=== PATIENT | male | born 1950 | race Caucasian/White ===

== ENCOUNTER 2024-08-30 20:09 | Inpatient (IN) | payer OTHER, SELFPAY ==
[2024-08-30] VITALS (33 sets, daily range): BP systolic 98–148; BP diastolic 46–89; BMI 31.7
[2024-08-30 15:38] LABS: Glucose - Point of Care 160 mg/dl (70-99)
[2024-08-30 15:48] LABS: % Basophils 0.4 % (0-2); % Eosinophils 3.9 % (0-6); % Immature Granulocytes 0.8 % (0-0.5); % Lymphocytes 13.6 % (20.5-51.1); % Monocytes 9.3 % (1.7-9.3); Absolute Eosinophils 0.4 10^3/uL (0-0.7); Absolute Immature Granulocytes 0.1 10^3/uL (0-0.05); Absolute Lymphocytes 1.2 10^3/uL (1.2-3.4); Absolute Monocytes 0.8 10^3/uL (0.1-0.6); Absolute Neutrophils 6.5 10^3/uL (1.4-6.5); Hematocrit 21.3 % (39.0-52.0); Hemoglobin 7.3 g/dL (13.0-18.0); Mean Corp Hgb Conc. 34.3 g/dL (33.0-37.0); Mean Corpuscular Hgb 29.3 pg (27.0-31.0); Mean Corpuscular Volume 85.5 fL (80.0-94.0); Mean Platelet Volume 9.9 fL (7.4-10.4); Nucleated Red Blood Cells % 0 % (-); Platelet Count 194 10^3/uL (130-400); Red Blood Cell Count 2.49 10^6/uL (4.70-6.10); Red Cell Dist. Width 15.8 % (11.5-14.5)
[2024-08-30 15:58] LABS: INR 2.67; PT 28.3 Sec (11.4-14.6)
[2024-08-30 15:59] LABS: APTT 49.5 Sec (23.4-35.0)
[2024-08-30 16:11] LABS: ALT (SGPT) 20 U/L (0-50); AST (SGOT) 33 U/L (17-59); Albumin 2.7 g/dl (3.5-5.0); Alkaline Phosphatase 108 U/L (38-126); Blood Urea Nitrogen 41 mg/dl (9-20); Calcium 8.2 mg/dl (8.4-10.2); Carbon Dioxide 25 mmol/L (22-30); Chloride 97 mmol/L (98-107); Estimated Creatinine Clearance 52 ml/min; Glucose 146 mg/dl (70-99); Potassium 4.5 mmol/L (3.5-5.1); Sodium 133 mmol/L (135-145); Total Bilirubin 0.4 mg/dl (0.2-1.3); Total Protein 5.9 g/dl (6.3-8.2); eGFR 48.85
[2024-08-30] MEDS: NSS 1000 IV (16:13)
--- NOTE | 2024-08-30 16:30 | CON.GI ---
Addendum entered and electronically signed by Flor Major Do, MD 08/30/24 17:24:
I saw and examined the patient.
The FUSING LINE INSPECTOR's note was reviewed and I agree with the note.
Comment: Michel is a 74yo long-term resident with h/o compression back fracture s/p spinal fusion at [place], DM and afib on eliquis who was admitted for hypotension and anemia Hbg 7.3 with rectal bleeding. He is limited historian but on
opioids for back pain. Unclear if was having BMs prior. Vitals HR 66 BP 98/47 exam pale appearing, NTTP, hypoactive BS. Labs notable for Hbg 7.3 but no known baseline with iron deficiency. No prior EGD/colonoscopy
Impression
- Rectal bleeding with iron def anemia
ddx includes stercoral colitis, ulcer, diverticular or occult malignancy
- Compression back fracture
- Chronic opioid use
- DM
- Afib on eliquis
- HTN
- CHF
Recommendations
- NPO for now
- Await CTA results
- Hold eliquis, do not need to reverse anticoagulation in setting of green stools that is blood tinged upon bedside disimpaction today
- Miralax BID, may need more cleanse pending on results of CT
- Serial H/H
- 2 large bore IVs
- Protonix 40mg IV BID
Will follow with you
Original Note:
Consultation
-
Date/Time Consultation Requested: 08/30/241614
Date/Time Consultation Performed: 08/30/241614
Requesting Provider: Dr. Hayward
Performing Provider: Dr. Tejada/ROMERO Johnson
Reason for Consultation: GI Bleed
Medical History
Chief Complaint / HPI
Chief Complaint: rectal bleeding
History of Present Illness:
74-year-old male who is a resident of [facility] with past medical history of compression fracture status post recent lumbar surgery (fusion), this was performed at [facility] diabetes, atrial fibrillation currently on Eliquis,
hypertension, hyperlipidemia, hypothyroidism, CHF, osteomyelitis presents to the emergency room with rectal bleeding for [facility] it appears that the patient was admitted to [facility] on 08/24/2024. Asked to evaluate for the same. Patient
is a poor historian cannot give much history prior to this event. Although he states he feels like there is pressure in his rectum. The patient had his hemoglobin checked while at [facility] that showed a hemoglobin of 7.5 he also had
hypotension with BP of 80/38 and was sent to the emergency room for further care. We do not know what his prior hemoglobin was as he has not been in this facility. And no other records are available to us. Repeat hemoglobin performed here was
7.3. Blood pressure was 100/85, pulse 65, respirations 13, temperature 98.2, O2 sat 100% on room air. The patient denies any fevers, chills, nausea, vomiting, melena, prior hematochezia, dysphagia or dyne aphasia. He denies any early satiety or
unintentional weight loss. He does complain of back pain as well as pain with any kind of turning. He states that he has a pressure and a low back pain. He does have a dressing in place in his lumbar region over his recent fusion. There is
recent clot-like blood in his diaper region. Medications include cefdinir, Ativan, fentanyl patch, aspirin 81 mg daily, ferrous sulfate, amlodipine, tamsulosin, omeprazole, thiamine, levothyroxine, apixaban 5 mg 1 tablet twice daily, metoprolol and
rosuvastatin, insulin sliding scale, oxycodone 5 mg every 6 hours as needed, bisacodyl as needed, Fleet enema as needed Tylenol as needed. The patient did have a moderate size amount of blood per rectum for the emergency room. No further signs of
bleeding. Vital signs have remained stable for us here. I did perform a rectal exam on him and disimpacted a moderate handful of solid green stool. There was blood surrounding this but no blood within the bowel movement. WBC 9.0, hemoglobin 7.3,
hematocrit 21.3, platelet count 194, PT 28.3, INR 2.67, sodium 133, potassium 4.5, chloride 97, CO2 25, BUN 41, creatinine 1.5, glucose 146, albumin 2.7. No imaging yet. The patient denies any family history of gastrointestinal malignancy. He has
never had an endoscopy or colonoscopy.
Past Medical History
Past Medical History: CHF, HTN, Hypercholesterolemia, Hypothyroidism, NIDDM and Other (wedge compression fracture of 5th lumbar vertebra, osteomyelitis)
Past Surgical History: Orthopedic (lumbar spine fusion)
Social History
Tobacco: Non-Smoker
Alcohol: None
Drug: None
Personal:
Employment: Retired
Family History
Family History: Other (denies any family history of gastrointestinal malignancy or IBD)
Allergies / Home Medications
Allergy/AdvReac Type Severity Reaction Status Date / Time
No Known Allergies Allergy Unverified 08/30/24 15:24
�Medication �Instructions �Recorded
acetaminophen 325 mg tablet 650 mg PO Q4HPRN PRN mild 08/30/24
pain/temp >101
amlodipine 2.5 mg tablet 2.5 mg PO DAILY 08/30/24
ammonium lactate 12 % topical cream 1 applic topical DAILY B/L LE 08/30/24
apixaban 5 mg tablet 5 mg PO BID 08/30/24
aspirin 81 mg tablet,delayed 81 mg PO DAILY 08/30/24
release
bisacodyl 10 mg rectal suppository 10 mg MT DAILYPRN PRN no bm 24 hrs 08/30/24
aftr mom
calcium acetate 667 mg tablet 1,334 mg PO TID 08/30/24
cefdinir 300 mg capsule 300 mg PO BID 08/30/24
cholecalciferol (vitamin D3) 125 125 mcg PO DAILY 08/30/24
mcg (5,000 unit) tablet (Vitamin
D3)
fentanyl 50 mcg/hr transdermal 1 patch transdermal Q72H back pain 08/30/24
patch
ferrous sulfate 325 mg (65 mg 325 mg PO DAILY 08/30/24
iron) tablet
honey 80 % topical gel (MediHoney 1 applic topical DAILY sacral wound 08/30/24
(honey))
honey 80 % topical gel (MediHoney 1 applic topical DAILYPRN PRN 08/30/24
(honey)) sacral wound soilage
insulin aspart U-100 100 unit/mL 1 sliding scale dose SC AC 08/30/24
subcutaneous cartridge
levothyroxine 100 mcg tablet 100 mcg PO DAILY 08/30/24
lidocaine 5 % topical patch 1 patch topical DAILY lower back 08/30/24
lorazepam 0.5 mg tablet 0.5 mg PO BIDPRN PRN anxiety 08/30/24
magnesium hydroxide 400 mg/5 mL 30 ml PO [id number] PRN no bm 3 days 08/30/24
oral suspension
melatonin 3 mg tablet 3 mg PO HSPRN PRN sleep 08/30/24
metoprolol tartrate 25 mg tablet 25 mg PO BID 08/30/24
nystatin 100,000 unit/gram topical 1 applic topical BID 08/30/24
ointment sacrum/jasmin-area
omeprazole 20 mg capsule,delayed 20 mg PO DAILY 08/30/24
release
oxycodone 5 mg tablet 5 mg PO Q6HPRN PRN moderate pain 08/30/24
rosuvastatin 10 mg tablet 10 mg PO HS 08/30/24
sodium phosphates 19 gram-7 118 ml MT DAILYPRN PRN no bm 24 08/30/24
gram/118 mL enema (Fleet Enema) hrs aftr bisacodyl
tamsulosin 0.4 mg capsule 0.4 mg PO DAILY 08/30/24
thiamine HCl (vitamin B1) 100 mg 100 mg PO DAILY 08/30/24
tablet
Review of Systems
-
All other systems: A 12 pt ROS was Negative except as stated above in HPI
Vital Signs
Temp Pulse Resp BP Pulse Ox
98.2 F 65 13 100/85 100
08/30/24 15:24 08/30/24 15:30 08/30/24 15:30 08/30/24 15:28 08/30/24 15:46
Physical Exam
Exam
General: No Apparent Distress
HEENT: Anicteric
Respiratory: Clear
Cardiac: Regular Rhythm
GI: Soft, Non Tender, Non Distended and Normal Bowel Sounds
Rectal: Hem Positive ( small amount of maroon clot-like blood found in diaper, rectal exam with moderate amount of solid green iron like stool in rectum disimpacted)
Musculoskeletal: Edema (+2 KAREN to mid shins)
Skin: Warm, Dry and Other (Multiple areas of scabbing over arms varying degrees of healing)
Neuro: AO x 3
Psych: Calm
Results
WBC 9.0 10^3/uL (4.8-10.8) 08/30/24 15:35
Hgb 7.3 g/dL (13.0-18.0) L 08/30/24 15:35
Hct 21.3 % (39.0-52.0) L 08/30/24 15:35
MCV 85.5 fL (80.0-94.0) 08/30/24 15:35
Plt Count 194 10^3/uL (130-400) 08/30/24 15:35
Absolute Neuts (auto) 6.5 10^3/uL (1.4-6.5) 08/30/24 15:35
PT 28.3 Sec (11.4-14.6) H 08/30/24 15:35
INR 2.67 08/30/24 15:35
APTT 49.5 Sec (23.4-35.0) H 08/30/24 15:35
Sodium 133 mmol/L (135-145) L 08/30/24 15:35
Potassium 4.5 mmol/L (3.5-5.1) 08/30/24 15:35
Chloride 97 mmol/L (98-107) L 08/30/24 15:35
Carbon Dioxide 25 mmol/L (22-30) 08/30/24 15:35
BUN 41 mg/dl (9-20) H 08/30/24 15:35
Creatinine 1.5 mg/dL (0.7-1.3) H 08/30/24 15:35
Calcium 8.2 mg/dl (8.4-10.2) L 08/30/24 15:35
Total Bilirubin 0.4 mg/dl (0.2-1.3) 08/30/24 15:35
AST 33 U/L (17-59) 08/30/24 15:35
ALT 20 U/L (0-50) 08/30/24 15:35
Alkaline Phosphatase 108 U/L (38-126) 08/30/24 15:35
Diagnostic Image Results:
none
Prior GI Procedures:
EGD: never
Colonoscopy: never
Assessment / Plan
-
74-year-old male who is a resident of [facility] with past medical history of compression fracture status post recent lumbar surgery (fusion), this was performed at [facility] diabetes, atrial fibrillation currently on Eliquis,
hypertension, hyperlipidemia, hypothyroidism, CHF, osteomyelitis presents to the emergency room with rectal bleeding for [facility] it appears that the patient was admitted to [facility] on 08/24/2024. Asked to evaluate for the same. Patient
is a poor historian cannot give much history prior to this event. Although he states he feels like there is pressure in his rectum. The patient had his hemoglobin checked while at [facility] that showed a hemoglobin of 7.5 he also had
hypotension with BP of 80/38 and was sent to the emergency room for further care. We do not know what his prior hemoglobin was as he has not been in this facility. And no other records are available to us. Repeat hemoglobin performed here was
7.3. Blood pressure was 100/85, pulse 65, respirations 13, temperature 98.2, O2 sat 100% on room air.
Impression:
Rectal bleeding
Anemia-unaware of baseline as patient already presents on oral iron
Afib on Eliquis
Hypotension
Recent lumbar surgery
Narcotic use
Constipation likely with solid stool in rectum requiring disimpaction
Plan:
-Trend Hgb
-Transfuse as needed
-Await pending CT ordered
-continue PPI
-Await iron panel, B12, folate
-NPO except meds for now
-Hold Eliquis, no need to reverse
-Miralax BID
-
-
Thank you for consultation and allowing me to participate in the patient's care. Please call the account relationship manager GI physician during the after hours with any questions or concerns.
[2024-08-30 16:52] LABS: Iron 31 ug/dl (49-181)
[2024-08-30 17:01] LABS: Percent Saturation 18 % (20-50); Total Iron Binding Capacity 166 ug/dl (261-462)
[2024-08-30 17:12] LABS: Fibrinogen 420 MG/DL (199-459)
[2024-08-30] MEDS: KCENTRA 100 UNIT IV (17:33)
[2024-08-30] MEDS: ZOSYN 50 IV (18:51)
--- NOTE | 2024-08-30 18:56 | ED.GENMED ---
History of Present Illness
General
Chief Complaint: Rectal Bleeding
Source: patient
Exam Limitations: none
Time Seen by Provider: 08/30/24 15:37
Nursing documentation reviewed up to this point in time: agreed with
History of Present Illness
History of Present Illness:
74-year-old male past medical history of A-fib currently on Eliquis hypertension hyperlipidemia diabetes presenting to the emergency department today with concerns of rectal bleeding from his nursing facility. Hemoglobin is 7.9 at the nursing
facility and also hypotensive 80/38 while in the nursing facility. He was sent in for emergent treatment. On arrival here he complains of rectal pain and bleeding denies any chest pain or shortness of breath.
Review of Systems
Review of Systems
Allergies reviewed?: Yes
All Other Systems: ROS reviewed and negative except as documented in HPI and ROS
Phy Exam
Physical Exam
Physical Exam:
GENERAL: Alert , in no apparent distress
EYE: pupils equal and reactive
NECK: Supple, no significant adenopathy.
ENT: o/p clr, mmm.
CARDIAC: Regular rate and rhythm .
LUNGS: Clear breath sounds bilaterally, no acute respiratory distress, no wheezes/rales/rhonchi
ABDOMEN: Rectal examination with thick red blood slowly oozing from the rectum. Soft, without focal tenderness, no r/g, no cvat
NEUROLOGICAL: Alert and oriented, no focal neuro deficits
SKIN: Warm and dry, skin intact.
MUSCULOSKELETAL: No edema, well perfused.
PSYCH: Normal and appropriate interaction.
Course
Orders/Labs/Results
Orders:
Orders
08/30/24 15:35
Type+Screen Urgent
Complete Blood Count/With Diff Urgent
Comprehensive Metabolic Panel Urgent
Ferritin Urgent
Fibrinogen Urgent
Comment: ADD ON
Folate Urgent
Comment: TIBC,FERRITIN,IRON,B12,FOLATE ADDED ON BY FLOOR 4:40PM 08-30-24
Iron Urgent
PT/INR [Prothrombin Time] Urgent
PTT Urgent
Total Iron Binding Urgent
Vitamin B12 Urgent
08/30/24 15:38
Electrocardiogram (*1) Urgent
Reason for Study: Atrial Fibrillation
EKG- Treatment ONCE
08/30/24 16:07
* Blood Bank Products Urgent
Blood Bank Products: *Packed RBC Leuko(PRBC's)
Quantity: 2
Transfuse Today: Yes
Reason: Bleeding
08/30/24 16:11
ABO2 Urgent
BBK Wristband Number:
Associate notified that ABO2 has been ordered: [id number]
Date: 08/30/24
Time: 15:45
Document Imaging Manager ID: [id number]
0.9% Sodium Chloride 1000 ml [Nss] 1,000 ml IV BOLUS
08/30/24 16:19
CT Abd/pelvis Angio W/wo Iv Stat
Comment:
Reason For Exam: gi bleed study
08/30/24 16:37
Add On- LAB Routine
Tests Added?: tibc ferritin % iron saturation iron vit B12, folate
08/30/24 16:41
Add On- LAB Routine
Tests Added?: fibrinogen
08/30/24 16:46
Prothrombin Complex(Pcc),Human [Kcentra] 2,558 unit Empty Viaflex Container 100 ml [Viaflex Empty Container] 100 ml IV NOW
Does patient have a dx of serious acute active bleeding?: Yes
Does patient have prior history of HIT?: No
08/30/24 18:16
Piperacillin/Tazo 3.375 Gram [Zosyn] 3.375 gram in 50 ml IV NOW
08/30/24 20:00
Pantoprazole [Protonix IV] 40 mg IV BID
Abnormal Lab Results
08/30/24 08/30/24
15:35 15:36
RBC 2.49 L 10^6/uL
(4.70-6.10)
Hgb 7.3 L g/dL
(13.0-18.0)
Hct 21.3 L %
(39.0-52.0)
RDW 15.8 H %
(11.5-14.5)
Abs Immat Gran (auto) 0.1 H 10^3/uL
(0-0.05)
Absolute Monos (auto) 0.8 H 10^3/uL
(0.1-0.6)
Immature Gran % 0.8 H %
(0-0.5)
Lymphocytes % 13.6 L %
(20.5-51.1)
PT 28.3 H Sec
(11.4-14.6)
APTT 49.5 H Sec
(23.4-35.0)
Sodium 133 L mmol/L
(135-145)
Chloride 97 L mmol/L
(98-107)
BUN 41 H mg/dl
(9-20)
Creatinine 1.5 H mg/dL
(0.7-1.3)
Glucose 146 H mg/dl
(70-99)
Calcium 8.2 L mg/dl
(8.4-10.2)
Iron 31 L ug/dl
(49-181)
TIBC 166 L ug/dl
(261-462)
% Saturation 18 L %
(20-50)
Total Protein 5.9 L g/dl
(6.3-8.2)
Albumin 2.7 L g/dl
(3.5-5.0)
POC Glucose 160 H mg/dl
(70-99)
Crossmatch IS Only See Detail
08/30/24 15:35
08/30/24 15:35
Vital Signs
Initial and Last Documented VS:
Initial Vital Signs
Temp Pulse Resp BP Pulse Ox
98.2 F 65 15 100/85 98
08/30/24 15:24 08/30/24 15:24 08/30/24 15:24 08/30/24 15:24 08/30/24 15:24
Last Documented Vital Signs
Temp Pulse Resp BP Pulse Ox
97.7 F 76 15 108/89 95
08/30/24 18:36 08/30/24 18:36 08/30/24 18:36 08/30/24 18:36 08/30/24 18:36
MDM/Problems Addressed
MDM/Problems Addressed:
74-year-old male presenting to the emergency department with GI bleed. Thick red blood on rectal examination. Some pain to the rectal area. No abdominal pain. Blood pressure here initially in the low 100s not tachycardic. Hemoglobin 7.3
slightly lower than previous level as an outpatient elevated BUN and creatinine level. Otherwise patient was written for 2 units of blood also given Kcentra due to being on Eliquis GI was consulted immediately who came to see the patient. GI bleed
study was performed that did not show any emergent bleeding. At this point patient will be admitted for further assessment. Stable throughout her stay with improving blood pressure while in the ER.
*Critical Care Note
Total Time (30-74mins, 75-104mins- exclusive of procedures): Not Applicable
ED Attending Note
-
Portions of this chart may have been created with voice recognition software.� Occasional wrong word or��sound alike� substitutions may have occurred due to the inherent limitations of voice recognition software.
Discharge Plan
Departure
Patient Disposition: Admit
Date of Disposition: 08/30/24
Time of Disposition: 19:02
Admit to: IMU
Admit to doctor: Gagan
Presentation/result/management discussed w/ accepting MD/DO: Hospitalist
Patient with high blood pressure during this ER visit?: No
Condition: Fair
Covid-19: Not Applicable
Discharge Problem:
GI bleed
Prescriptions:
No Action
fentanyl 50 mcg/hr Patch 72 Hour
1 patch TRANSDERMAL Q72H
acetaminophen 325 mg Tablet
650 mg PO Q4HPRN MDD 3000 mg PRN (Reason: mild pain/temp >101)
nystatin 100,000 unit/gram Ointment
1 applic TOPICAL BID
thiamine HCl (vitamin B1) 100 mg Tablet
100 mg PO DAILY
amlodipine 2.5 mg Tablet
2.5 mg PO DAILY
melatonin 3 mg Tablet
3 mg PO HSPRN PRN (Reason: sleep)
Patient Comments:
08/30/24: to stop taking after 09/12/24.
aspirin 81 mg Tablet,Delayed Release (Dr/Ec)
81 mg PO DAILY
levothyroxine 100 mcg Tablet
100 mcg PO DAILY
lorazepam 0.5 mg Tablet
0.5 mg PO BIDPRN PRN (Reason: anxiety)
magnesium hydroxide 400 mg/5 mL Suspension
30 ml PO [id number] PRN (Reason: no bm 3 days)
tamsulosin 0.4 mg Capsule
0.4 mg PO DAILY
bisacodyl 10 mg Suppository
10 mg [place] DAILYPRN PRN (Reason: no bm 24 hrs aftr mom)
ferrous sulfate 325 mg (65 mg iron) Tablet
325 mg PO DAILY
lidocaine 5 % Adhesive Patch,Medicated
1 patch TOPICAL DAILY
Fleet Enema 19-7 gram/118 mL Enema
118 ml [place] DAILYPRN PRN (Reason: no bm 24 hrs aftr bisacodyl)
omeprazole 20 mg Capsule,Delayed Release(Dr/Ec)
20 mg PO DAILY
ammonium lactate 12 % Cream
1 applic TOPICAL DAILY
cefdinir 300 mg Capsule
300 mg PO BID
Patient Comments:
08/30/24: to take for 10 days, starting 08/26/24
oxycodone 5 mg Tablet
5 mg PO Q6HPRN PRN (Reason: moderate pain)
insulin aspart U-100 100 unit/mL Cartridge
1 sliding scale dose SC AC
Rx Instructions:
141-180=2u,181-220=4u,221-260=6u,261-300=8u,301-340=10u,341+=12u
rosuvastatin 10 mg Tablet
10 mg PO HS
metoprolol tartrate 25 mg Tablet
25 mg PO BID
cholecalciferol (vitamin D3) [Vitamin D3] 125 mcg (5,000 unit) Tablet
125 mcg PO DAILY
MediHoney (honey) 80 % Gel
1 applic TOPICAL DAILY
MediHoney (honey) 80 % Gel
1 applic TOPICAL DAILYPRN PRN (Reason: sacral wound soilage)
apixaban 5 mg Tablet
5 mg PO BID
calcium acetate 667 mg Tablet
1,334 mg PO TID
Referrals:
Kelsey Mills DO [Family Provider] -
Interventions
Interventions:
*Risk Screen - Suicide Last Done: 08/30/24 16:10
*General Assessment Last Done: 08/30/24 15:24
*Neglect/Abuse Screening Last Done: 08/30/24 15:24
*ED COVID-19 Vaccine History Last Done: 08/30/24 15:39
NP-Xdlrbs-Yvxzofkjzq Assessment Last Done: 08/30/24 16:14
ED- Cardiac Assessment Last Done: 08/30/24 15:46
ED- Pulmonary Assessment Last Done: 08/30/24 15:46
Discharge Date and Time
Print Language: SOMALI
--- NOTE | 2024-08-30 19:38 | HPS.HSE ---
Family Physician
-
Family Physician: Kelsey Mills DO
Chief Complaint
-
Rectal bleeding
History of Present Illness
Is a 74-year-old male who has a past medical history of insulin-dependent diabetes, hypertension, atrial fibrillation on anticoagulation, chronic vertebral wounds and osteo, hypothyroidism and hyperlipidemia who presents to the emergency department
from [facility] with rectal bleeding and was found hypotensive.
Exam in the ED shows ongoing mild loose with thick blood. There are some pain in the rectal region but no pain to the abdomen. Initial blood pressures was 80 systolic. Heart rate was normal.
When I saw him he was afebrile after 1 L of normal saline blood pressure was 111/60 pulse was 78 and irregular.
Hemoglobin was 7.3 which is still down from 7.8 at the snf, MCV 85, platelet count was 184 INR 2.6. White count was 9000. Chemistries were notable for a BUN of 41 creatinine of 1.5 sodium 133 potassium 4.5. LFTs were within normal limits.
Medical History
Past Medical History
Past Medical History: Reports Other
Additional Past Medical History:
Insulin-dependent diabetes,
Hypothyroidism
Hypertension
Atrial fibrillation on anticoagulation
GERD
Chronic osteo
Past Surgical History: Reports Other
Additional Past Surgical History:
Lumbar fusion
Social History
Unable to obtain full social history at this time due to: Dementia
Drug: None
Personal: Single
Living: [facility]
Family History
Family History: Not pertinent
Allergies / Home Medications
Allergies reflects when Allergies were last updated in [employer].
Home Medications with original date entered in [employer]
Allergy/Medication List:
Allergies
Allergy/AdvReac Type Severity Reaction Status Date / Time
No Known Allergies Allergy Unverified 08/30/24 15:24
Home Medications
acetaminophen 325 mg tablet 650 mg PO Q4HPRN PRN mild pain/temp >101 08/30/24
amlodipine 2.5 mg tablet 2.5 mg PO DAILY 08/30/24
ammonium lactate 12 % topical cream 1 applic topical DAILY B/L LE 08/30/24
apixaban 5 mg tablet 5 mg PO BID 08/30/24
aspirin 81 mg tablet,delayed release 81 mg PO DAILY 08/30/24
bisacodyl 10 mg rectal suppository 10 mg AR DAILYPRN PRN no bm 24 hrs aftr mom 08/30/24
calcium acetate 667 mg tablet 1,334 mg PO TID 08/30/24
cefdinir 300 mg capsule 300 mg PO BID 08/30/24
cholecalciferol (vitamin D3) 125 mcg (5,000 unit) tablet (Vitamin D3) 125 mcg PO DAILY 08/30/24
fentanyl 50 mcg/hr transdermal patch 1 patch transdermal Q72H back pain 08/30/24
ferrous sulfate 325 mg (65 mg iron) tablet 325 mg PO DAILY 08/30/24
honey 80 % topical gel (MediHoney (honey)) 1 applic topical DAILY sacral wound 08/30/24
honey 80 % topical gel (TransactionTreeHoney (honey)) 1 applic topical DAILYPRN PRN sacral wound soilage 08/30/24
insulin aspart U-100 100 unit/mL subcutaneous cartridge 1 sliding scale dose SC AC 08/30/24
levothyroxine 100 mcg tablet 100 mcg PO DAILY 08/30/24
lidocaine 5 % topical patch 1 patch topical DAILY lower back 08/30/24
lorazepam 0.5 mg tablet 0.5 mg PO BIDPRN PRN anxiety 08/30/24
magnesium hydroxide 400 mg/5 mL oral suspension 30 ml PO [id number] PRN no bm 3 days 08/30/24
melatonin 3 mg tablet 3 mg PO HSPRN PRN sleep 08/30/24
metoprolol tartrate 25 mg tablet 25 mg PO BID 08/30/24
nystatin 100,000 unit/gram topical ointment 1 applic topical BID sacrum/jasmin-area 08/30/24
omeprazole 20 mg capsule,delayed release 20 mg PO DAILY 08/30/24
oxycodone 5 mg tablet 5 mg PO Q6HPRN PRN moderate pain 08/30/24
rosuvastatin 10 mg tablet 10 mg PO HS 08/30/24
sodium phosphates 19 gram-7 gram/118 mL enema (Fleet Enema) 118 ml AR DAILYPRN PRN no bm 24 hrs aftr bisacodyl 08/30/24
tamsulosin 0.4 mg capsule 0.4 mg PO DAILY 08/30/24
thiamine HCl (vitamin B1) 100 mg tablet 100 mg PO DAILY 08/30/24
Review of Systems
-
History Source: Patient
Constitutional: Reports No Symptoms
EENT: Reports No Symptoms
Respiratory: Reports No Symptoms
Cardiac: Reports No Symptoms
Abdomen/GI: Reports No Symptoms
: Reports No Symptoms
Musculoskeletal: Reports No Symptoms
Skin: Reports No Symptoms
Neurological: Reports No Symptoms
Endocrine: Reports No Symptoms
Hematologic/Lymphatic: Reports No Symptoms
Psych: Reports No Symptoms
Physical Exam
Vital Signs
Vital Signs
Temp Pulse Resp BP Pulse Ox
97.7 F 78 16 111/62 95
08/30/24 18:36 08/30/24 19:15 08/30/24 19:15 08/30/24 19:10 08/30/24 18:36
Physical Exam
General: No Apparent Distress
HEENT: NormoCephalic, Anicteric, Moist mucous membranes and Atraumatic
Respiratory: Clear
Cardiac: S1/S2 and Irregular Rhythm
Breast: Deferred by me
GI: Soft, Non Tender, Non Distended and Normal Bowel Sounds
Rectal: Red and Maroon Stools
Genito-urinary: Deferred by me
Musculoskeletal: No Clubbing, No Cyanosis and No Edema
Skin: Warm
Neuro: AO x 3
Hematologic/Lymphatic: No Lymphadenopathy
Psych: Calm
Laboratory Results
-
08/30/24 15:35
08/30/24 15:35
Laboratory Results
PT 28.3 Sec (11.4-14.6) H 08/30/24 15:35
INR 2.67 08/30/24 15:35
APTT 49.5 Sec (23.4-35.0) H 08/30/24 15:35
Total Bilirubin 0.4 mg/dl (0.2-1.3) 08/30/24 15:35
AST 33 U/L (17-59) 08/30/24 15:35
ALT 20 U/L (0-50) 08/30/24 15:35
Alkaline Phosphatase 108 U/L (38-126) 08/30/24 15:35
Data Reviewed
-
CT Scan: Report Reviewed by me
Lab Data: Labs Reviewed by me
Old Records: Reviewed
Impression/Plan
-
IMPRESSION:
Patient with atrial fibrillation on anticoagulation and on 81 mg of aspirin presents to the emergency department with acute lower GI bleed. CT GI bleeding scan shows diverticulitis. No active contrast extravasation at that time.
PLAN:
1. GI bleed -diverticular bleed with acute diverticulitis. HD unstable on arrival. Hgb 7.3. On apixaban and aspirin 81
- admit to imu
- 1 L NS bolus, Kcentra given in ED
- holding aspirin, apixaban
- trend h/h, transfuse for Hgb < 7.5
- npo, iv maintenance fluids
- ppi iv bid, miralax bid
- no active bleeding on CT scan, hold of IR consult for now
- for diverticulitis, continue zosyn
- GI consulted, and recs given
2. AFIB
- holding metoporolol for now
- holding apixaban
3. DM on insulin
- sliding scale insulin q 6
4. Continue tamsulosin, thiamine, wound care consult. ABX for osteo till Sep 05.
DVT PPX - SCDs
Full Code
[2024-08-30] MEDS: PROTONIX IV 40 MG IV (21:51)
[2024-08-30 21:52] LABS: Folate 7.9 ng/ml (2.76-20); Vitamin B12 626 pg/ml (239-931)
[2024-08-30] MEDS: NSS (PRESERVATIVE FREE) 10 ML IV (21:52)
[2024-08-30] MEDS: DURAGESIC 50 MCG/HR PATCH 1 PATCH TRANSDERM (22:06)
[2024-08-30] MEDS: MYCOSTATIN OINTMENT 1 APPLIC TOPICAL (22:10)
[2024-08-30] MEDS: ATIVAN 0.5 MG PO (22:53)
[2024-08-30 22:56] LABS: Glucose - Point of Care 143 mg/dl (70-99)
[2024-08-31] VITALS (23 sets, daily range): BP systolic 119–163; BP diastolic 56–80; BMI 31.4
[2024-08-31] MEDS: MIRALAX 17 GRAMS PO ×3 (00:24→20:31)
[2024-08-31] MEDS: ZOSYN 50 IV ×4 (00:24→17:57)
[2024-08-31] MEDS: LR 500 IV (00:25)
[2024-08-31] MEDS: CRESTOR 10 MG PO ×2 (00:26→23:23)
--- NOTE | 2024-08-31 00:49 | PTCARENOTE ---
Rec'd pt from ED RN with PRBC transfusing. Pt disoriented to place, c/o back pain with movement. Pt turned off of sacrum with pillows, sacral wound dressing changed by this RN. Pt able to take oral pill with small sip of water without complication.
Desat to 87% on RA while sleeping, 2L placed with improvement to 96%. Call ontiveros within reach. Bed alarm in place
[2024-08-31] MEDS: ATIVAN 0.5 MG PO (03:39)
--- NOTE | 2024-08-31 04:06 | DOWNTIME ---
There was a [employer] Downtime on 08/31/2024 from 0100 to 08/31/2024 at 0355. Downtime documentation of patient's care, including medication administrations, has been reconciled in the electronic record per guidelines. Refer to the
patient's paper chart under the miscellaneous tab to see printed paper medication records and downtime forms.
--- NOTE | 2024-08-31 04:08 | PTCARENOTE ---
Pt removed two IVs, frequently removing monitoring equipment and oxygen. b/l wrist restraints placed per SEED TRUCKER order. PRN ativan given per MAR for increased anxiety.
[2024-08-31 04:11] LABS: Blood Urea Nitrogen 36 mg/dl (9-20); Calcium 8.4 mg/dl (8.4-10.2); Carbon Dioxide 28 mmol/L (22-30); Chloride 100 mmol/L (98-107); Estimated Creatinine Clearance 55 ml/min; Glucose 107 mg/dl (70-99); Potassium 4.2 mmol/L (3.5-5.1); Sodium 137 mmol/L (135-145); eGFR 53.07
[2024-08-31 04:54] LABS: Glucose - Point of Care 117 mg/dl (70-99)
[2024-08-31 05:12] LABS: Hematocrit 25.8 % (39.0-52.0); Hemoglobin 8.8 g/dL (13.0-18.0)
[2024-08-31 05:28] LABS: APTT 40.2 Sec (23.4-35.0)
[2024-08-31 06:18] LABS: Glucose - Point of Care 110 mg/dl (70-99)
[2024-08-31] MEDS: NSS (PRESERVATIVE FREE) 10 ML IV ×2 (07:54→20:32)
[2024-08-31] MEDS: VITAMIN B1 100 MG PO (07:54)
[2024-08-31] MEDS: SYNTHROID 100 MCG PO (07:54)
[2024-08-31] MEDS: PROTONIX IV 40 MG IV ×2 (07:54→20:32)
[2024-08-31] MEDS: FLOMAX 0.4 MG PO (07:54)
[2024-08-31] MEDS: LAC HYDRIN, AM LACTIN LOTION 1 APPLIC TOPICAL (07:55)
[2024-08-31] MEDS: LIDOCAINE 4% PATCH 1 PATCH TOPICAL (07:55)
[2024-08-31] MEDS: MYCOSTATIN OINTMENT 1 APPLIC TOPICAL ×2 (07:55→20:32)
[2024-08-31 08:20] LABS: Glucose - Point of Care 127 mg/dl (70-99)
--- NOTE | 2024-08-31 08:43 | W.PN.GI.CBS2 ---
Today's Communication / Plan
-
IV iron
Ducolax oral and WV
NPO for now once having good BMs consider advancement to [facility]D
EGD/colon outpatient basis in 8 wks time
Assessment / Plan
-
74-year-old male who is a resident of [facility] with past medical history of compression fracture status post recent lumbar surgery (fusion), this was performed at [facility] diabetes, atrial fibrillation currently on Eliquis,
hypertension, hyperlipidemia, hypothyroidism, CHF, osteomyelitis presents to the emergency room with rectal bleeding for [facility] it appears that the patient was admitted to [facility] on 08/24/2024. Asked to evaluate for the same. Patient
is a poor historian cannot give much history prior to this event. Although he states he feels like there is pressure in his rectum. The patient had his hemoglobin checked while at [facility] that showed a hemoglobin of 7.5 he also had
hypotension with BP of 80/38 and was sent to the emergency room for further care. We do not know what his prior hemoglobin was as he has not been in this facility. And no other records are available to us. Repeat hemoglobin performed here was
7.3. CTA without active bleeding but sigmoid diverticulitis and large stool burden.
Impression:
Acute sigmoid diverticulitis
Severe constipation
Anemia-unaware of baseline as patient already presents on oral iron
Confusion
Afib on Eliquis
Hypotension
Recent lumbar surgery
Narcotic use
Constipation likely with solid stool in rectum requiring disimpaction
Plan:
-Trend Hgb
-IV iron
-C/w abx to complete 7 day course
-NPO for now ok for meds
-Bisacodyl oral and WV today
-C/w Miralax BID
-Continue to hold eliquis if no further bleeding consider resuming tomorrow
-Recommend colonoscopy outpatient basis in 8 wks and EGD for iron def anemia
Will follow with you
Subjective
Subjective
Date of Service: August 31, 2024
Overnight very agitated and now in wrist restraints. Abd pain improved. Denies nausea/vomiting. Needs to urinate this AM
Objective
Data Reviewed
Laboratory Data:
Laboratory Results
08/31/24 03:20
Laboratory Results
PT 28.3 Sec (11.4-14.6) H 08/30/24 15:35
INR 2.67 08/30/24 15:35
APTT 40.2 Sec (23.4-35.0) H 08/31/24 03:20
Total Bilirubin 0.4 mg/dl (0.2-1.3) 08/30/24 15:35
AST 33 U/L (17-59) 08/30/24 15:35
ALT 20 U/L (0-50) 08/30/24 15:35
Alkaline Phosphatase 108 U/L (38-126) 08/30/24 15:35
Vital Signs and I&O:
Vital Signs
Temp Pulse Resp BP Pulse Ox
96.7 F L 71 13 126/62 97
08/31/24 08:21 08/31/24 06:00 08/31/24 06:00 08/31/24 06:00 08/31/24 02:31
I&O
08/30/24 08/31/24 09/01/24
06:59 06:59 06:59
Intake Total 500 / 500
Balance 500 / 500
Physical Exam
Physical Exam
GEN: No acute distress, confusion pale appearing
HEENT: anicteric, extraocular movements intact, clear oropharynx without exudates
GI: soft, obese mildly-distended, not tender to palpation, normal active bowel sounds, no hepatosplenomegaly, ecchymotic in RLQ
EXT: warm, well perfused, 1+ edema bilaterally
NEURO: AAOx1 in restraints, non-focal
--- NOTE | 2024-08-31 09:01 | W.PN.HOSP.TC ---
Addendum entered and electronically signed by Suraj Winston MD 08/31/24 14:40:
#Probable benign proteinaceous cyst of the right kidney
Outpatient MRI advised
Original Note:
Today's Communication/Plan
-
serial H&H
Psych consult
cont NPO and Zosyn pending further GI recommendations
Discuss with neurosurgery if sutures on the back to be removed, as family
Assessment / Plan
Assessment / Plan
74yo M with Parkinsons, dementia, HTN, Afib on Eliquis, chronic pain, s/p back surgery in June 2024 in [place], DM, HLD, BPH, chronic vertebral osteomyelitis, hypothyroidism brought from [facility] with rectal bleeding, found to have
diverticulitis
Apparently patient was struggling with back pain for arounf 1 year, had two back surgeris and most recent one in Jun 2024 in [place] 2/2 paraspinal abscess and infection and was discharged from there 1 week ago on oral Abx and instructions to
remove back sutures
Also as per family, while been in [facility] - Oxycodone and Ativan were stopped that improved mentation, however patient seems to be severely demeted when assessed bedside, uncooperative, agitated at times and hard to reorient, which can
indicate long-standing significant dementia
A/P:
#Acute blood loss anemia 2/2 lower GIB 2/2 diverticulitis
Zosyn
two large bore IV, serial H&H, transfuse to keep Hgb>7
GI consult
Hold NSAIDs, antiplatelets and anticoagulation
Advance diet as tolerated
#Afib, unspecified
Hold Eliquis
s/p Kcentra in ED
rate control
Telemetry
#Chronic pain 2/2 multiple back surgery
#Chronic vertebral osteomyelitis and paraspinal abscess
cont fentanyl patch
obtain records from [facility]
#Dementia, most likely Parkinson with behavioral
stop Ativan since as per family it was worsening condition
Psych consult
#Hypothyroidism
#Parkinson disease
#SHIRLEY
#HLD
#BPH
cont home meds
Hold Cefdinir while on Zosyn
watch for retention, straight cath as needed
Restraints to be removed when patient is more cooperative and no concern for removing of the tubes
#Apparent CKD stage 3a
follow Cr
DVT ppx SCDs
Full code
I have spent at least 58min reviewing the chart, test results, communication with consultants, family and direct patient care
Full code confirmed with family
Anticipated Discharge: > 48 hours
Subjective/Interval History
-
Date of Service: August 31, 2024
Objective Data
-
Labs:
Laboratory Results
08/31/24 08/31/24 08/31/24
03:20 08:45 15:00
Hgb 8.8 L D Pending Pending
Hct 25.8 L Pending Pending
APTT 40.2 H
Sodium 137
Potassium 4.2
Chloride 100
Carbon Dioxide 28
BUN 36 H
Creatinine 1.4 H
Glucose 107 H
Calcium 8.4
08/31/24
16:45
Hgb Pending
Hct Pending
APTT
Sodium
Potassium
Chloride
Carbon Dioxide
BUN
Creatinine
Glucose
Calcium
Vital Signs:
Vital Signs
Temp Pulse Resp BP Pulse Ox
96.7 F L 71 13 126/62 97
08/31/24 08:21 08/31/24 06:00 08/31/24 06:00 08/31/24 06:00 08/31/24 02:31
I&O
08/30/24 08/31/24 09/01/24
06:59 06:59 06:59
Intake Total 500 / 500
Balance 500 / 500
[2024-08-31 11:06] LABS: Hematocrit 25.6 % (39.0-52.0); Hemoglobin 8.9 g/dL (13.0-18.0)
[2024-08-31] MEDS: DULCOLAX 10 MG PO (11:33)
[2024-08-31] MEDS: LR IV (11:33)
[2024-08-31] MEDS: DULCOLAX 10 MG RECTAL (11:34)
[2024-08-31 11:54] LABS: Glucose - Point of Care 104 mg/dl (70-99)
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
--- NOTE | 2024-08-31 13:20 | WOUNDNOTE ---
[facility] RN note: Patient admitted with rectal bleed
See H&P for complete history.
PMH: Acute sigmoid diverticulitis, Severe constipation, anemia, confusion, Afib, hypotension, recent lumbar surgery, narcotic use.
Anemia-unaware of baseline as patient already presents on oral iron
Wound Location and type/assessment: Patient admitted with unstageable (likely stage 3). The wound is covered with adherent yellow slough, surrounded by open areas. Patient reports pain/tenderness with palpation. Heather wound is blanchable. There area
also scattered open areas with pink wound bed. Small amount of drainage noted. Heels intact. Patient was assessed with assistance of SIMA Jeffries and student Merari. He was positioned in a left semi-side lying position and reported increased comfort.
Appetite: Currently NPO
Pressure redistribution devices in place: Centrella Max Air, heels off-loaded on pillow
Plan: Local wound care provided to sacrum. Will order daily Santyl for necrotic areas. SIMA Noyola given update. Will confirm orders with hospitalist. Updated care plan and will follow as needed.
Note to case management of equipment requested for discharge: Air Mattress
Recommend follow up at wound care center upon discharge.
--- NOTE | 2024-08-31 13:38 | PTCARENOTE ---
Assumed care of patient at beginning of this shift from previous RN with b/l wrist restraints in place. Patient pulled out IV site despite restraints so medsitter added. Patient later was able to rip restraint off of his one wrist and pulled off
monitor and ripped IV tubing despite b/l wrist restraints and medsitter. Patient continues to yell out multiple times and c/o pain to his back. He was seen by [facility] for an unstageable wound on his sacrum but also had recent back surgery. Nurse from
[facility], called to say patient was supposed to have sutures removed yesterday and asked if they can be removed here. She stated Dr Young was the surgeon. She provided her phone number: [phone]. [place] text sent to Dr Winters
informing him of the request by Nii Mac for suture removal. Also informed him that patient continues to yell out and c/o pain, but unsure if it's r/t recent surgery or wound. Let him know that patient has a fentanyl patch on but no other prn
meds. [place] text read; await response or updated orders.
[2024-08-31] MEDS: DILAUDID 0.5 MG IV (14:09)
[2024-08-31] MEDS: FERRLECIT 110 MG IV (14:10)
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
--- NOTE | 2024-08-31 14:43 | WOUNDNOTE ---
WOC RN NOTE: Spoke to patients sister, Drea on the phone regarding POA PI. Drea said she was recently made aware of the wound by social work. This RN explained plan for wound care interventions and follow-up. Drea stated understanding of plan.
Will continue to follow up during in-patient stay.
--- NOTE | 2024-08-31 15:15 | PTCARENOTE ---
Addendum entered by Jazmín Bourgeois RN 08/31/24 15:19:
[place] text sent to Bonnie OLMOS RN at the request of the surgical PA.
Original Note:
Medicated with dilaudid as ordered by Dr Winston for pain. Neurosurgical PA up to remove patient's sutures and placed dressing. Area approximated with small open area at the distal incision.
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
--- NOTE | 2024-08-31 15:57 | PTCARENOTE ---
Patient with no urinary output; bladder scan 590ml. Straight cath per protocol for 900ml. Dr Winston updated via tiger text.
--- NOTE | 2024-08-31 15:58 | PTCARENOTE ---
Patient seen by speech therapist; ok for thin liquids with supervision: single sips, meds one at a time.
--- NOTE | 2024-08-31 16:08 | PTOTSP ---
Dysphagia Evaluation
No signs of oral/pharyngeal dysphagia or aspiration with limited consistency assessed (thin liquids). Patient is on a dysphagia diet at baseline (ground solids AND soft/bite sized solids, thin liquids per face sheet from [facility]) and has
chronic risk factors for dysphagia (Parkinson's, dementia, GERD).
Recommend:
1. Thin Liquids (while on clear liquid diet per physician)
2. Medications - 1 at a time with sips of liquid
3. Oral care 3x daily
4. PO only when awake/alert, single sips, full supervision/assistance
5. Will assess solids if/when medically cleared
[2024-08-31 16:42] LABS: Hematocrit 25.4 % (39.0-52.0); Hemoglobin 8.6 g/dL (13.0-18.0)
[2024-08-31 17:40] LABS: Glucose - Point of Care 95 mg/dl (70-99)
--- NOTE | 2024-08-31 20:50 | PTCARENOTE ---
Pt received by previous RN. Pt confused, calling out, consistent with pt reported baseline during visit. Pt in B/L soft limb restraints and medsitter in use. please see restraints documentation and medistter documentation for full assessment of
those interventions. Pt Can answer name and . HS hygiene preformed. Pt on 2L HS, Sat 98%. NSR on monitor with BBB. HR 66. No BM, HS mirilax admin. Q2t maintained. Call light in reach.
[2024-08-31 22:47] LABS: Glucose - Point of Care 100 mg/dl (70-99)
[2024-08-31 23:05] LABS: Hematocrit 25.8 % (39.0-52.0); Hemoglobin 8.7 g/dL (13.0-18.0)
[2024-09-01] VITALS: BP 135/71
[2024-09-01] MEDS: ZOSYN 50 IV ×4 (00:12→17:31)
[2024-09-01] MEDS: DILAUDID 0.5 MG IV ×4 (01:11→21:23)
[2024-09-01] MEDS: LR 500 IV (01:15)
[2024-09-01 01:55] VITALS: BMI 31.4
[2024-09-01] MEDS: SYNTHROID 100 MCG PO (05:28)
[2024-09-01 05:31] LABS: Glucose - Point of Care 90 mg/dl (70-99)
[2024-09-01 06:20] LABS: Hematocrit 24.7 % (39.0-52.0); Hemoglobin 8.6 g/dL (13.0-18.0)
[2024-09-01 07:07] LABS: ALT (SGPT) 18 U/L (0-50); AST (SGOT) 28 U/L (17-59); Albumin 2.5 g/dl (3.5-5.0); Alkaline Phosphatase 105 U/L (38-126); Blood Urea Nitrogen 25 mg/dl (9-20); Calcium 8.2 mg/dl (8.4-10.2); Carbon Dioxide 27 mmol/L (22-30); Chloride 103 mmol/L (98-107); Estimated Creatinine Clearance 71 ml/min; Glucose 85 mg/dl (70-99); Sodium 141 mmol/L (135-145); Total Bilirubin 0.7 mg/dl (0.2-1.3); Total Protein 5.8 g/dl (6.3-8.2); eGFR > 60.00
[2024-09-01 07:36] VITALS: BP 146/65
[2024-09-01] MEDS: LR IV ×2 (08:29→11:23)
[2024-09-01] MEDS: PROTONIX IV 40 MG IV (08:45)
[2024-09-01] MEDS: NSS (PRESERVATIVE FREE) 10 ML IV (08:45)
[2024-09-01] MEDS: SANTYL OINTMENT TOPICAL (08:46)
[2024-09-01] MEDS: VITAMIN B1 100 MG PO (08:46)
[2024-09-01] MEDS: LIDOCAINE 4% PATCH 1 PATCH TOPICAL (08:46)
[2024-09-01] MEDS: FLOMAX 0.4 MG PO (08:46)
[2024-09-01] MEDS: MIRALAX 17 GRAMS PO ×2 (08:46→20:19)
[2024-09-01] MEDS: LAC HYDRIN, AM LACTIN LOTION 1 APPLIC TOPICAL (08:47)
[2024-09-01] MEDS: MYCOSTATIN OINTMENT 1 APPLIC TOPICAL ×2 (08:53→21:25)
--- NOTE | 2024-09-01 09:05 | W.PN.GI.CBS2 ---
Today's Communication / Plan
-
Adv to LRD
Ok to resume AC
Recommend OP EGD/colon in 8 wks time he can FU in GI office
GI will s/o please call for questions
Assessment / Plan
-
74-year-old male who is a resident of [facility] with past medical history of compression fracture status post recent lumbar surgery (fusion), this was performed at [facility] diabetes, atrial fibrillation currently on Eliquis,
hypertension, hyperlipidemia, hypothyroidism, CHF, osteomyelitis presents to the emergency room with rectal bleeding for [facility] it appears that the patient was admitted to [facility] on 08/24/2024. Asked to evaluate for the same. Patient
is a poor historian cannot give much history prior to this event. Although he states he feels like there is pressure in his rectum. The patient had his hemoglobin checked while at [facility] that showed a hemoglobin of 7.5 he also had
hypotension with BP of 80/38 and was sent to the emergency room for further care. We do not know what his prior hemoglobin was as he has not been in this facility. And no other records are available to us. Repeat hemoglobin performed here was
7.3. CTA without active bleeding but sigmoid diverticulitis and large stool burden.
Impression:
Acute sigmoid diverticulitis
Severe constipation
Anemia-unaware of baseline as patient already presents on oral iron
Confusion
Afib on Eliquis
Hypotension
Recent lumbar surgery
Narcotic use
Constipation likely with solid stool in rectum requiring disimpaction
Plan:
- H/H stable
- C/w abx to complete 7 day course
- Adv to low residue diet
- C/w Miralax BID
- Ok to resume eliquis today
- Recommend colonoscopy outpatient basis in 8 wks and EGD for iron def anemia
No further GI recs will sign off please call for questions.
Subjective
Subjective
Date of Service: September 01, 2024
He complains of back pain. Denies abd pain. Tolerating CLD and wants advancement. Denies N/V. He has some agitation that appears less today
Objective
Data Reviewed
Laboratory Data:
Laboratory Results
09/01/24 05:49
09/01/24 05:49
Laboratory Results
PT 28.3 Sec (11.4-14.6) H 08/30/24 15:35
INR 2.67 08/30/24 15:35
APTT 40.2 Sec (23.4-35.0) H 08/31/24 03:20
Total Bilirubin 0.7 mg/dl (0.2-1.3) 09/01/24 05:49
AST 28 U/L (17-59) 09/01/24 05:49
ALT 18 U/L (0-50) 09/01/24 05:49
Alkaline Phosphatase 105 U/L (38-126) 09/01/24 05:49
Vital Signs and I&O:
Vital Signs
Temp Pulse Resp BP Pulse Ox
97.6 F 83 17 146/65 98
09/01/24 07:36 09/01/24 07:36 09/01/24 07:36 09/01/24 07:36 09/01/24 07:36
I&O
08/31/24 09/01/24 09/02/24
06:59 06:59 06:59
Intake Total 500 / 500 120 / 120
Output Total 3100 / 3100
Balance 500 / 500 -2980 / -2980
Physical Exam
Physical Exam
GEN: No acute distress, conversant, pleasant
HEENT: anicteric, extraocular movements intact, clear oropharynx without exudates
GI: soft, milldy-distended, not tender to palpation, normal active bowel sounds, no hepatosplenomegaly
EXT: warm, well perfused, trace edema bilaterally
NEURO: AAOx1, non-focal
[2024-09-01 10:43] LABS: Glucose - Point of Care 160 mg/dl (70-99)
[2024-09-01 11:13] VITALS: BP 138/65
[2024-09-01] MEDS: NOVOLOG FLEXPEN-LOW RESISTANCE 1 UNITS SC ×2 (11:29→17:26)
--- NOTE | 2024-09-01 11:51 | PN.CDI ---
CDI
- -
CDI:
Physician Documentation Request
Admit Date: 08/30/24 20:09
Dear Doctor Tish,
Please review the following and provide your response in the progress notes.
Clinical Indicators:
- 08/31 PN 'Acute blood loss anemia 2/2 lower GIB 2/2 diverticulitis'
- 'Hold NSAIDs, antiplatelets and anticoagulation'
- Home meds aspirin and apixaban on hold
- 08/30 2 units PRBC given
Laboratory Tests
08/30/24 08/31/24 09/01/24
15:35 10:39 05:49
Hgb 7.3 L 8.9 L 8.6 L
Please clarify the relationship between these conditions:
Yes, _abla__ is related to/associated with/exacerbated by _apixiban__.
No, _abla__ is not related to/associated with/exacerbated by _apixiban__ but it is due to . (Please specify)
Unable to determine
Use of terms such as suspected, likely, concern for, or probable (associated with a specific diagnosis that is being evaluated, monitored, or treated as if it exists) are acceptable and can be coded in the inpatient setting, when documented at the
time of discharge.
Thank you,
Zaid Schilling RN
CDI Specialist
Please use your independent medical judgment in providing your response.
--- NOTE | 2024-09-01 11:57 | PN.CDI ---
Addendum entered and electronically signed by Suraj Winston MD 09/01/24 13:10:
Unknown
Original Note:
CDI
- -
CDI:
Physician Documentation Request
Admit Date: 08/30/24 20:09
Dear Doctor Tish,
Please review the following and provide your response in the progress notes.
Clinical Indicators:
- 08/31 PN 'Chronic pain 2/2 multiple back surgery'
- 'cont fentanyl patch'
- IV hydromorphone x 3
- 09/01 GI 'Narcotic use'
If possible, please provide further specificity as outlined below:
Opioid use with dependence
Opioid dependence
Other (please specify)
Use of terms such as suspected, likely, concern for, or probable (associated with a specific diagnosis that is being evaluated, monitored, or treated as if it exists) are acceptable and can be coded in the inpatient setting, when documented at the
time of discharge.
Thank you,
Zaid Schilling RN
CDI Specialist
Please use your independent medical judgment in providing your response.
--- NOTE | 2024-09-01 13:20 | W.PN.UPDATE ---
Update Note
Progress Note Update
patient seen chart reviewed. spoke with nursing. the patient was much improved vis a vis mental status. he was able to talk to me about his medical issues. he was tearful as he spoke of the medical problems he is facing . he is retaining urine and
nursing was thinking he may need a kinney given retention. patient was fearful that he would never get his medical condition under control. he spoke about his family . he is one of six kids. he did say something about brothers 'they are stealing
from me' that raised some concern re paranoia but would not jump to provide any antipsychotics without more information or if it is interfering w his rx here. (all of the antipsychotics could contribute to urinary retention) . would leave the prn of
ativan in place for now.he has not had a prn today. will follow
--- NOTE | 2024-09-01 13:49 | W.PN.HOSP.TC ---
Today's Communication/Plan
-
MRI back
Keenan
start Elqiuis
follow AM labs
Assessment / Plan
Assessment / Plan
74yo M with Parkinsons, dementia, HTN, Afib on Eliquis, chronic pain, s/p back surgery in June 2024 in [place], DM, HLD, BPH, chronic vertebral osteomyelitis, hypothyroidism brought from [facility] with rectal bleeding, found to have
diverticulitis
Apparently patient was struggling with back pain for around 1 year, had two back surgeries and most recent one in Jun 2024 in [place] 2/2 paraspinal abscess and infection and was discharged from there 1 week ago on oral Abx and instructions to
remove back sutures
Also as per family, while been in [facility] - Oxycodone and Ativan were stopped that improved mentation, however patient seems to be severely demeted when assessed bedside, uncooperative, agitated at times and hard to reorient, which can
indicate long-standing significant dementia
As per ortho PA: surgery was done on 08/11/24, patient fell out of ambulance in January 2024, then on August 10 2024 felt worsening back pain and admitted to the hospital. Sugery was done for possible OM L3-L5 laminectomy and L4-L5 fusion. Also
bone biopsy was done that showed benign fibrocartilage. There was no active infection. Discharged with plan from ID since neither histopathology or culture suggested infection. Nno Abx course was planned upon d/c. As per ortho - back pain expected
for couple of months after such surgery
also during hospital stay found incidental R adrenal adenoma on CT
A/P:
#Acute blood loss anemia 2/2 lower GIB 2/2 diverticulitis exacerbated by Eliquis
Zosyn
two large bore IV, serial H&H, transfuse to keep Hgb>7
GI consult
Hold NSAIDs, antiplatelets and anticoagulation
Advance diet as tolerated
#Afib, unspecified
Hold Eliquis
s/p Kcentra in ED
rate control
Telemetry
#Chronic pain 2/2 multiple back surgery
New constipation and urinary retention (however both can be explained with opioids and mostly bedbound status
cont fentanyl patch
obtain records from [facility]
Discussed with from [place] - awaiting results of MRI lumbar and will review with them
Unfortunately patient is not cooperative enough for reliable neuro exam due to his dementia
#Dementia, most likely Parkinson with behavioral disturbances
stop Ativan since as per family it was worsening condition
Psych consult
#Constipation with stool impaction
Disimpacted in ED
#Urinary retention
#BPH
Recurrent straight cath due to large volumes >500ml
Keenan
tamsulosin
#Hypothyroidism
#Parkinson disease
#SHIRLEY
#HLD
cont home meds
#Apparent CKD stage 3a
follow Cr
DVT ppx SCDs
Full code
I have spent at least 58min reviewing the chart, test results, communication with consultants, family and direct patient care
Full code confirmed with family
Anticipated Discharge: > 48 hours
Subjective/Interval History
-
Date of Service: September 01, 2024
Objective Data
-
Labs:
Laboratory Results
09/01/24
05:49
Hgb 8.6 L
Hct 24.7 L
Sodium 141
Potassium 4.0
Chloride 103
Carbon Dioxide 27
BUN 25 H
Creatinine 1.1
Glucose 85
Calcium 8.2 L
Total Bilirubin 0.7
AST 28
ALT 18
Alkaline Phosphatase 105
Vital Signs:
Vital Signs
Temp Pulse Resp BP Pulse Ox
97.7 F 84 18 138/65 98
09/01/24 11:13 09/01/24 11:13 09/01/24 11:13 09/01/24 11:13 09/01/24 11:13
I&O
08/31/24 09/01/24 09/02/24
06:59 06:59 06:59
Intake Total 500 / 500 120 / 120
Output Total 3100 / 3100
Balance 500 / 500 -2980 / -2980
Review of Systems
-
Unable to obtain full review of systems at this time due to: Dementia
History Source: Patient
All other systems: Reviewed and negative
Musculoskeletal: Reports Other (severe back pain)
Physical Exam
-
General: No Apparent Distress
HEENT: Normocephalic
Respiratory: Clear to Auscultation
Cardiac: Regular Rhythm
GI: Soft, Nontender and Nondistended
Musculoskeletal: No Clubbing, No Cyanosis and No Edema
Neuro: Awake, Alert, Oriented and AO x 3
[2024-09-01 15:52] VITALS: BP 139/78
[2024-09-01 17:26] LABS: Glucose - Point of Care 191 mg/dl (70-99)
[2024-09-01] MEDS: ATIVAN 0.5 MG PO (18:29)
[2024-09-01 19:24] VITALS: BP 117/77
[2024-09-01] MEDS: CRESTOR 10 MG PO (20:20)
[2024-09-01] MEDS: PROTONIX 40 MG PO (20:20)
[2024-09-01] MEDS: ELIQUIS 5 MG PO (20:20)
[2024-09-01] MEDS: RISPERDAL M-TAB (ORALLY DISINTEGRATING) 0.5 MG PO (22:04)
[2024-09-01 23:35] VITALS: BP 148/70
[2024-09-02 00:22] LABS: Glucose - Point of Care 112 mg/dl (70-99)
[2024-09-02] MEDS: LR IV ×2 (00:30→09:42)
[2024-09-02] MEDS: ZOSYN 50 IV ×5 (00:30→23:27)
[2024-09-02] MEDS: DILAUDID 0.5 MG IV ×3 (02:48→11:56)
[2024-09-02] MEDS: SYNTHROID 112 MCG PO (06:41)
[2024-09-02 06:55] LABS: Hematocrit 24.2 % (39.0-52.0); Hemoglobin 8.3 g/dL (13.0-18.0); Mean Corp Hgb Conc. 34.3 g/dL (33.0-37.0); Mean Corpuscular Hgb 28.9 pg (27.0-31.0); Mean Corpuscular Volume 84.3 fL (80.0-94.0); Mean Platelet Volume 9.8 fL (7.4-10.4); Platelet Count 144 10^3/uL (130-400); Red Blood Cell Count 2.87 10^6/uL (4.70-6.10); Red Cell Dist. Width 16.3 % (11.5-14.5); White Blood Cell Count 7.8 10^3/uL (4.8-10.8)
[2024-09-02 07:27] LABS: Blood Urea Nitrogen 19 mg/dl (9-20); Calcium 7.9 mg/dl (8.4-10.2); Carbon Dioxide 29 mmol/L (22-30); Chloride 102 mmol/L (98-107); Estimated Creatinine Clearance 71 ml/min; Glucose 117 mg/dl (70-99); Potassium 3.9 mmol/L (3.5-5.1); Sodium 139 mmol/L (135-145); eGFR > 60.00
[2024-09-02 07:34] VITALS: BP 135/59
[2024-09-02 07:40] LABS: Glucose - Point of Care 104 mg/dl (70-99)
[2024-09-02] MEDS: NOVOLOG FLEXPEN-LOW RESISTANCE SC (07:40)
[2024-09-02] MEDS: PROTONIX 40 MG PO ×2 (07:41→20:26)
[2024-09-02] MEDS: ELIQUIS 5 MG PO (07:41)
[2024-09-02] MEDS: MIRALAX 17 GRAMS PO ×2 (07:41→20:25)
[2024-09-02] MEDS: LIDOCAINE 4% PATCH 1 PATCH TOPICAL (07:41)
[2024-09-02] MEDS: VITAMIN B1 100 MG PO (07:41)
[2024-09-02] MEDS: FLOMAX 0.4 MG PO (07:41)
[2024-09-02] MEDS: ATIVAN 0.5 MG PO ×2 (07:41→18:27)
--- NOTE | 2024-09-02 07:41 | PN.CDI ---
CDI
- -
CDI:
Physician Documentation Request
Admit Date: 08/30/24 20:09
Dear Doctor Tsih,
Please review the following and provide your response in the progress notes.
Clinical Indicators:
- 08/31 RN Skin assessment indicates Stage 3 sacrum pressure injury, POA
Physician documentation of the type and location of wounds is required for compliant documentation. Based on the above clinical findings and your assessment, please provide the following in your progress note:
1. Location of the ulcer/wound, including laterality.
2. Type (etiology) of ulcer/wound:
- Diabetic ulcer
- Arterial (ischemic) ulcer
- Traumatic wound
- Venous stasis ulcer
- Pressure (decubitus) ulcer
- Non-healing surgical wound
- Other
- Unable to determine
Use of terms such as suspected, likely, concern for, or probable (associated with a specific diagnosis that is being evaluated, monitored, or treated as if it exists) are acceptable and can be coded in the inpatient setting, when documented at the
time of discharge.
Thank you,
Zaid Schilling RN
CDI Specialist
Please use your independent medical judgment in providing your response.
*Source: National Pressure Ulcer Advisory Panel (NPUAP)
[2024-09-02] MEDS: LAC HYDRIN, AM LACTIN LOTION 1 APPLIC TOPICAL (07:42)
[2024-09-02] MEDS: MYCOSTATIN OINTMENT 1 APPLIC TOPICAL ×2 (07:43→20:27)
[2024-09-02] MEDS: SANTYL OINTMENT TOPICAL (07:44)
--- NOTE | 2024-09-02 09:58 | PTOTSP ---
Speech Therapy Follow-up
Suspect pt's oropharyngeal swallow function at/near baseline. Pt resides at [facility], where his baseline diet is 'ground textures, soft and bite sized, and thin liquids.' Pt with no overt s/sx of aspiration with thin liquids via straw or
regular solids, however pt demonstrated prolonged and effortful mastication and bolus formation of regular solids. Recommend pt consume IDDSI Level 6 (soft and bite sized) solids secondary to edentulous state and to assist in oral preparatory phase
of swallow.
Recommend:
1. IDDSI Level 6 (soft and bite sized) and thin liquids (baseline)
2. Medications as tolerated
3. General aspiration precautions
4. No further ST indicated at this time. COMPUTER TYPESETTER KEYLINER to sign off
[2024-09-02 11:50] LABS: Glucose - Point of Care 184 mg/dl (70-99)
--- NOTE | 2024-09-02 11:52 | W.PN.UPDATE ---
Update Note
Progress Note Update
patient seen chart reviewed. spoke with nursing and with dr clemente (both came into the room while i was speaking to mr whitaker). mr whitaker was able to verbalize his needs. said he was cold and felt better when heated blankets were wrapped around
him! the patient was not as alert and interactive as he had been yesterday . he seemed a bit out of sorts and actually was given a prn of risperdal last evening presumably for agitaton but still overall appropriate this morning. nursing feels it
may be a matter of more pain and dr clemente considering change in pain meds. no changes made in psych meds. patient does seem to benefit from ativan used as a prn. while patient likely does have some cognitive impairment i would not say he has
'advanced dementia' he was particularly yesterday able to converse with me about various aspects of his life. noted tsh is elevated defer to dr clemente. would check free t4. b12 folate are nl. psych will see him tomorrow.
[2024-09-02] MEDS: NOVOLOG FLEXPEN-LOW RESISTANCE 1 UNITS SC ×2 (12:09→16:20)
--- NOTE | 2024-09-02 12:21 | W.PN.HOSP.TC ---
Addendum entered and electronically signed by Suraj Winston MD 09/02/24 12:33:
#Stage 3 sacrum pressure injury, POA
Wound care
Original Note:
Today's Communication/Plan
-
cont current mgmt
Assessment / Plan
Assessment / Plan
74yo M with Parkinsons, dementia, HTN, Afib on Eliquis, chronic pain, s/p back surgery in June 2024 in [place], DM, HLD, BPH, chronic vertebral osteomyelitis, hypothyroidism brought from [facility] with rectal bleeding, found to have
diverticulitis
Apparently patient was struggling with back pain for around 1 year, had two back surgeries and most recent one in Jun 2024 in [place] 2/2 paraspinal abscess and infection and was discharged from there 1 week ago on oral Abx and instructions to
remove back sutures
Also as per family, while been in [facility] - Oxycodone and Ativan were stopped that improved mentation, however patient seems to be severely demented when assessed bedside, uncooperative, agitated at times and hard to reorient, which can
indicate long-standing significant dementia
As per ortho PA: surgery was done on 08/11/24, patient fell out of ambulance in January 2024, then on August 10 2024 felt worsening back pain and admitted to the hospital. Sugery was done for possible OM L3-L5 laminectomy and L4-L5 fusion. Also
bone biopsy was done that showed benign fibrocartilage. There was no active infection. Discharged with plan from [place] since neither histopathology or culture suggested infection. Nno Abx course was planned upon d/c. As per ortho - back pain expected
for couple of months after such surgery
also during hospital stay found incidental R adrenal adenoma on CT
A/P:
#Acute blood loss anemia 2/2 lower GIB 2/2 diverticulitis exacerbated by Eliquis
Zosyn - plan to switch to Augmentin in 1-2 days since no fevers, no abdominal pain and patient improving
two large bore IV, serial H&H, transfuse to keep Hgb>7
GI consult: restarted AC, EGD\\colonoscopy recommended in 8 weeks
Advance diet as tolerated
#Afib, unspecified
Hold Eliquis
s/p Kcentra in ED
rate control
Telemetry
#Chronic pain 2/2 multiple back surgery
New constipation and urinary retention (however both can be explained with opioids and mostly bedbound status)
cont fentanyl patch
Discussed with Sarah results of the MRI. Postsurgical changes seen. Previously - no infection on biopsy and discharged off Abx as per ID in [place]. No urgent need for any intervention. Pain is expected and patient will need to follow with his
neuroSx upon d/c
Sutures removed, wound healing well, small area of dehiscence of the skin w/o signs of infection
#Dementia, unspecified
questionable Hx of parkinsons
Cont Ativan PRN as it is helping patient with anxiety
Psych consult
#Constipation with stool impaction
Disimpacted in ED
#Urinary retention
#BPH
Recurrent straight cath due to large volumes >500ml
Keenan
tamsulosin
#Hypothyroidism
#SHIRLEY
#HLD
cont home meds
Increased LEvothyroxine - recheck TSH in 2-3 weeks upon d/c
#Apparent CKD stage 3a
follow Cr
DVT ppx SCDs
Full code
I have spent at least 58min reviewing the chart, test results, communication with consultants, family and direct patient care
Full code confirmed with family
Anticipated Discharge: > 48 hours
Subjective/Interval History
-
Date of Service: September 02, 2024
Objective Data
-
Labs:
Laboratory Results
09/02/24
06:28
WBC 7.8
Hgb 8.3 L
Hct 24.2 L
Plt Count 144 D
Sodium 139
Potassium 3.9
Chloride 102
Carbon Dioxide 29
BUN 19
Creatinine 1.1
Glucose 117 H
Calcium 7.9 L
Vital Signs:
Vital Signs
Temp Pulse Resp BP Pulse Ox
97.9 F 83 16 135/59 96
09/02/24 07:34 09/02/24 07:34 09/02/24 07:34 09/02/24 07:34 09/02/24 07:34
I&O
09/01/24 09/02/24 09/03/24
06:59 06:59 06:59
Intake Total 120 / 120 2865 / 2865
Output Total 3100 / 3100 1575 / 1575
Balance -2980 / -2980 1290 / 1290
Review of Systems
-
History Source: Patient
All other systems: Reviewed and negative
Physical Exam
-
General: No Apparent Distress
Respiratory: Clear to Auscultation
GI: Soft, Nontender and Nondistended
Neuro: Awake, Alert and Oriented
Psych: Calm
[2024-09-02] MEDS: SENOKOT-S 1 TABLET PO ×2 (14:33→20:26)
--- NOTE | 2024-09-02 15:30 | WOUNDNOTE ---
WOC RN NOTE: Patient visited to follow up on approximated healing lower back wound per neurosurgery request. The site is epithelized and wound care can be changed to Q 48 hour dressing change. Sacral wound care provided with Santyl. Patient was
placed on left side lying position and is on a Centrella Max Air. RN Jimmy given update. Will confirm orders and update care plan.
[2024-09-02 16:11] VITALS: BP 156/68
[2024-09-02 16:16] LABS: Glucose - Point of Care 179 mg/dl (70-99)
[2024-09-02] MEDS: DURAGESIC 25 MCG/HR PATCH 1 PATCH TRANSDERM (16:18)
--- NOTE | 2024-09-02 16:19 | WOUNDNOTE ---
MEDIAL LUMBAR WOUND
--- NOTE | 2024-09-02 16:48 | CM ---
Recieved message from attending that patient will hopefully be medically cleared for discharge tomorrow. Spoke with Bing in admissions at [facility] who stated that she can offer patient a bed on Thursday/once auth is obtained.
Plan: Case management will continue to follow and assist with discharge planning. Back to [facility] upon obtaining auth from Insurance. Attending updated.
[2024-09-02] MEDS: ROXICODONE 5 MG PO (18:27)
[2024-09-02] MEDS: MELATONIN 3 MG PO (20:25)
[2024-09-02] MEDS: CRESTOR 10 MG PO (20:26)
--- NOTE | 2024-09-02 20:33 | PTCARENOTE ---
RN notified BASKETBALLS AND FOOTBALLS REVERSER Keren regarding hospitalist note on 09/02 stating to continue to hold eliquis. B[employer]S AND FOOTBALLS REVERSER informed RN that clarification will be discussed in the AM to determine whether to resume or not based on the admission diagnosis of the patient
which was suspicion of rectal bleeding.
[2024-09-02] MEDS: ELIQUIS PO (20:35)
[2024-09-02 21:39] LABS: Glucose - Point of Care 137 mg/dl (70-99)
[2024-09-02 22:00] VITALS: BMI 31.4
[2024-09-02 23:00] VITALS: BP 148/80
[2024-09-03] MEDS: ROXICODONE 5 MG PO (02:10)
[2024-09-03] MEDS: ZOSYN 50 IV (04:47)
[2024-09-03] MEDS: SYNTHROID 112 MCG PO (06:13)
[2024-09-03 07:00] VITALS: BP 140/65
[2024-09-03 07:29] LABS: Free T4 1.46 ng/dl (0.78-2.19)
[2024-09-03 08:19] LABS: Glucose - Point of Care 120 mg/dl (70-99)
[2024-09-03] MEDS: NOVOLOG FLEXPEN-LOW RESISTANCE SC ×2 (08:20→16:55)
[2024-09-03] MEDS: LIDOCAINE 4% PATCH 1 PATCH TOPICAL (08:21)
[2024-09-03] MEDS: SANTYL OINTMENT 1 APPLIC TOPICAL (08:22)
[2024-09-03] MEDS: SENOKOT-S 1 TABLET PO ×2 (08:22→20:09)
[2024-09-03] MEDS: FLOMAX 0.4 MG PO (08:22)
[2024-09-03] MEDS: MIRALAX 17 GRAMS PO ×2 (08:22→20:10)
[2024-09-03] MEDS: PROTONIX 40 MG PO ×2 (08:22→20:10)
[2024-09-03] MEDS: VITAMIN B1 100 MG PO (08:22)
[2024-09-03] MEDS: LAC HYDRIN, AM LACTIN LOTION 1 APPLIC TOPICAL (08:24)
[2024-09-03] MEDS: MYCOSTATIN OINTMENT 1 APPLIC TOPICAL ×2 (08:25→20:13)
[2024-09-03] MEDS: ULTRAM 50 MG PO ×2 (09:45→23:20)
--- NOTE | 2024-09-03 09:52 | W.PN.HOSP.TC ---
Today's Communication/Plan
-
Augmentin
CM for D/C
Trial of void
Assessment / Plan
Assessment / Plan
74yo M with Parkinsons, dementia, HTN, Afib on Eliquis, chronic pain, s/p back surgery in June 2024 in [place], DM, HLD, BPH, chronic vertebral osteomyelitis, hypothyroidism brought from [facility] with rectal bleeding, found to have
diverticulitis
Apparently patient was struggling with back pain for around 1 year, had two back surgeries and most recent one in Jun 2024 in [place] 2/2 paraspinal abscess and infection and was discharged from there 1 week ago on oral Abx and instructions to
remove back sutures
fentanyl patch - decreased dose and patient tolerated well. Tramadol for breakthrough pain. Mentation fluctuating, mostly improving with decreased doses of opioids.
As per ortho PA: surgery was done on 08/11/24, patient fell out of ambulance in January 2024, then on August 10 2024 felt worsening back pain and admitted to the hospital. Sugery was done for possible OM L3-L5 laminectomy and L4-L5 fusion. Also
bone biopsy was done that showed benign fibrocartilage. There was no active infection. Discharged with plan from [place] since neither histopathology or culture suggested infection. Nno Abx course was planned upon d/c. As per ortho - back pain expected
for couple of months after such surgery
also during hospital stay found incidental R adrenal adenoma on CT
A/P:
#Acute blood loss anemia 2/2 lower GIB 2/2 diverticulitis exacerbated by Eliquis
Zosyn - switched to Augmentin on 09/03/24 since no fevers, no abdominal pain and patient improving
two large bore IV, serial H&H, transfuse to keep Hgb>7
GI consult: restarted AC, EGD\\colonoscopy recommended in 8 weeks
Advance diet as tolerated
#Afib, unspecified
Hold Eliquis
s/p Kcentra in ED
rate control
Telemetry
#Chronic pain 2/2 multiple back surgery
New constipation and urinary retention (however both can be explained with opioids and mostly bedbound status)
cont fentanyl patch - decreased dose and patient tolerated well. Tramadol for breakthrough pain
Discussed with Sarah results of the MRI. Postsurgical changes seen. Previously - no infection on biopsy and discharged off Abx as per ID in [place]. No urgent need for any intervention. Pain is expected and patient will need to follow with his
neuroSx upon d/c
Sutures removed, wound healing well, small area of dehiscence of the skin w/o signs of infection
#Dementia, unspecified
questionable Hx of parkinsons
Cont Ativan PRN as it is helping patient with anxiety
Psych consult
#Constipation with stool impaction most likely 2/2 opioids
Disimpacted in ED
Resolved, large BM on 09/03/24
Laxatives
Wean off opioids
#Urinary retention 2/2 opioids, poor ambulatory capacity
#BPH
Recurrent straight cath due to large volumes >500ml
Tov on 09/03/24, since patient became more mobile
tamsulosin
#Hypothyroidism
#SHIRLEY
#HLD
cont home meds
Increased Levothyroxine - recheck TSH in 2-3 weeks upon d/c
#Apparent CKD stage 3a
follow Cr
DVT ppx SCDs
Full code
I have spent at least 38min reviewing the chart, test results, communication with consultants, family and direct patient care
Full code confirmed with family
Anticipated Discharge: Within 24 hours
Subjective/Interval History
-
Date of Service: September 03, 2024
Objective Data
-
Vital Signs:
Vital Signs
Temp Pulse Resp BP Pulse Ox
97.5 F 76 17 140/65 97
09/03/24 07:00 09/03/24 07:00 09/03/24 07:00 09/03/24 07:00 09/03/24 07:00
I&O
09/02/24 09/03/24 09/04/24
06:59 06:59 06:59
Intake Total 2865 / 2865 1320 / 1320 960 / 960
Output Total 1575 / 1575 650 / 650 1600 / 1600
Balance 1290 / 1290 670 / 670 -640 / -640
Review of Systems
-
History Source: Patient
All other systems: Reviewed and negative
Physical Exam
-
General: No Apparent Distress
Respiratory: Clear to Auscultation
Cardiac: Regular Rhythm
Genito-urinary: Keenan
Neuro: Awake, Alert, Oriented and AO x 3
Psych: Calm
[2024-09-03] MEDS: AUGMENTIN 875 MG/125 MG 1 TABLET PO ×2 (10:09→20:10)
[2024-09-03 11:45] LABS: Glucose - Point of Care 152 mg/dl (70-99)
[2024-09-03] MEDS: NOVOLOG FLEXPEN-LOW RESISTANCE 1 UNITS SC (12:05)
[2024-09-03 15:00] VITALS: BP 140/76
[2024-09-03 16:25] LABS: Glucose - Point of Care 133 mg/dl (70-99)
[2024-09-03] MEDS: CRESTOR 10 MG PO (21:24)
[2024-09-03 21:31] LABS: Glucose - Point of Care 210 mg/dl (70-99)
[2024-09-03 23:00] VITALS: BP 163/82
[2024-09-04] MEDS: SYNTHROID 112 MCG PO (05:15)
[2024-09-04 07:30] VITALS: BP 150/75
[2024-09-04 08:19] LABS: Glucose - Point of Care 124 mg/dl (70-99)
[2024-09-04] MEDS: VITAMIN B1 100 MG PO (09:23)
[2024-09-04] MEDS: FLOMAX 0.4 MG PO (09:24)
[2024-09-04] MEDS: SENOKOT-S 1 TABLET PO ×2 (09:24→20:08)
[2024-09-04] MEDS: PROTONIX 40 MG PO ×2 (09:24→20:08)
[2024-09-04] MEDS: LIDOCAINE 4% PATCH 1 PATCH TOPICAL (09:24)
[2024-09-04] MEDS: SANTYL OINTMENT 1 APPLIC TOPICAL (09:24)
[2024-09-04] MEDS: MIRALAX PO (09:25)
[2024-09-04] MEDS: NOVOLOG FLEXPEN-LOW RESISTANCE SC (09:25)
[2024-09-04] MEDS: MYCOSTATIN OINTMENT 1 APPLIC TOPICAL ×2 (09:25→20:09)
[2024-09-04] MEDS: AUGMENTIN 875 MG/125 MG 1 TABLET PO ×2 (09:29→20:08)
[2024-09-04] MEDS: ULTRAM 50 MG PO ×2 (09:37→21:22)
[2024-09-04] MEDS: ATIVAN 0.5 MG PO ×2 (09:37→21:22)
[2024-09-04] MEDS: LAC HYDRIN, AM LACTIN LOTION TOPICAL (11:27)
--- NOTE | 2024-09-04 12:12 | W.PN.HOSP.TC ---
Today's Communication/Plan
-
pending acceptance to rehab
Assessment / Plan
Assessment / Plan
74yo M with Parkinsons, dementia, HTN, Afib on Eliquis, chronic pain, s/p back surgery in June 2024 in [place], DM, HLD, BPH, chronic vertebral osteomyelitis, hypothyroidism brought from [facility] with rectal bleeding, found to have
diverticulitis, improved on Abx, GI recommended colonoscopy in 8 weeks.
Sutures from back removed by NeuroSx. Details of previous admission from [place] obtained: surgery was done on 08/11/24, patient fell out of ambulance in January 2024, then on August 10 2024 felt worsening back pain and admitted to the hospital.
Sugery was done for possible OM L3-L5 laminectomy and L4-L5 fusion. Also bone biopsy was done that showed benign fibrocartilage. There was no active infection. Discharged with plan from [place] since neither histopathology or culture suggested
infection. Nno Abx course was planned upon d/c. MRI in repeated and showed postOP changes. Patient will have to follow with his NeuroSx upon the d/c. Pain control sufficient with Fentanyl patch decreased to 25mg and Tramadol. TSH will need to be
rechecked in 2 weeks upon d/c as Synthroid increased. Constipation and urinary retention resolved. Pending d/c to [facility] on 09/05/24 as per CM
A/P:
#Acute blood loss anemia 2/2 lower GIB 2/2 diverticulitis exacerbated by Eliquis
Zosyn - switched to Augmentin on 09/03/24 since no fevers, no abdominal pain and patient improving
two large bore IV, serial H&H, transfuse to keep Hgb>7
GI consult: restarted AC, EGD\\colonoscopy recommended in 8 weeks
Advance diet as tolerated
#Afib, unspecified
s/p Kcentra in ED
rate control
Telemetry
#Chronic pain 2/2 multiple back surgery
New constipation and urinary retention (however both can be explained with opioids and mostly bedbound status)
cont fentanyl patch - decreased dose and patient tolerated well. Tramadol for breakthrough pain
Discussed with Sarah results of the MRI. Postsurgical changes seen. Previously - no infection on biopsy and discharged off Abx as per ID in [place]. No urgent need for any intervention. Pain is expected and patient will need to follow with his
neuroSx upon d/c
Sutures removed, wound healing well, small area of dehiscence of the skin w/o signs of infection
#Dementia, unspecified
questionable Hx of parkinsons
Cont Ativan PRN as it is helping patient with anxiety
Psych consult
#Constipation with stool impaction most likely 2/2 opioids
Disimpacted in ED
Resolved, large BM on 09/03/24
Laxatives
Wean off opioids
#Urinary retention 2/2 opioids, poor ambulatory capacity
#BPH
Recurrent straight cath due to large volumes >500ml
Tov on 09/03/24, since patient became more mobile
tamsulosin
#Hypothyroidism
#SHIRLEY
#HLD
cont home meds
Increased Levothyroxine - recheck TSH in 2-3 weeks upon d/c
#Apparent CKD stage 3a
follow Cr
DVT ppx SCDs
Full code
I have spent at least 38min reviewing the chart, test results, communication with consultants, family and direct patient care
Full code confirmed with family
Anticipated Discharge: Within 24 hours
Subjective/Interval History
-
Date of Service: September 04, 2024
Objective Data
-
Vital Signs:
Vital Signs
Temp Pulse Resp BP Pulse Ox
97.5 F 82 16 150/75 99
09/04/24 07:30 09/04/24 07:30 09/04/24 07:30 09/04/24 07:30 09/04/24 07:30
I&O
09/03/24 09/04/24 09/05/24
06:59 06:59 06:59
Intake Total 1320 / 1320 2019
Output Total 650 / 650 4200 / 4200
Balance 670 / 670 -2180 / -2180
Review of Systems
-
Unable to obtain full review of systems at this time due to: Dementia
History Source: Patient
All other systems: Reviewed and negative
Physical Exam
-
General: No Apparent Distress
HEENT: Normocephalic
Respiratory: Clear to Auscultation
Cardiac: Regular Rhythm
GI: Soft, Nontender and Nondistended
Musculoskeletal: No Clubbing, No Cyanosis and No Edema
Neuro: Awake, Alert, Oriented and AO x 3
Psych: Apparent Dementia
[2024-09-04 12:13] LABS: Glucose - Point of Care 172 mg/dl (70-99)
[2024-09-04] MEDS: NORVASC 2.5 MG PO (14:52)
[2024-09-04] MEDS: NOVOLOG FLEXPEN-LOW RESISTANCE 1 UNITS SC (14:52)
[2024-09-04 15:50] VITALS: BP 154/74
[2024-09-04 17:02] LABS: Glucose - Point of Care 247 mg/dl (70-99)
[2024-09-04] MEDS: NOVOLOG FLEXPEN-LOW RESISTANCE 2 UNITS SC (17:36)
[2024-09-04] MEDS: CRESTOR 10 MG PO (20:08)
[2024-09-04] MEDS: MIRALAX 17 GRAMS PO (20:08)
[2024-09-04 21:22] LABS: Glucose - Point of Care 254 mg/dl (70-99)
[2024-09-04 23:00] VITALS: BP 146/68
[2024-09-05] MEDS: SYNTHROID 112 MCG PO (06:01)
[2024-09-05 07:00] VITALS: BP 142/73
[2024-09-05 07:25] LABS: Glucose - Point of Care 100 mg/dl (70-99)
[2024-09-05] MEDS: NOVOLOG FLEXPEN-LOW RESISTANCE SC (08:02)
[2024-09-05] MEDS: PROTONIX 40 MG PO ×2 (08:55→20:59)
[2024-09-05] MEDS: VITAMIN B1 100 MG PO (08:55)
[2024-09-05] MEDS: FLOMAX 0.4 MG PO (08:55)
[2024-09-05] MEDS: SENOKOT-S 1 TABLET PO ×2 (08:55→20:59)
[2024-09-05] MEDS: AUGMENTIN 875 MG/125 MG 1 TABLET PO ×2 (08:55→20:58)
[2024-09-05] MEDS: NORVASC 2.5 MG PO (08:56)
[2024-09-05] MEDS: SANTYL OINTMENT 1 APPLIC TOPICAL (08:56)
[2024-09-05] MEDS: MIRALAX PO (08:57)
[2024-09-05] MEDS: LAC HYDRIN, AM LACTIN LOTION 1 APPLIC TOPICAL (08:57)
[2024-09-05] MEDS: LIDOCAINE 4% PATCH 1 PATCH TOPICAL (08:57)
--- NOTE | 2024-09-05 08:57 | W.PN.HOSP.TC ---
Today's Communication/Plan
-
Discharge to [facility] when authorization has been obtained
Assessment / Plan
Assessment / Plan
74yo M with Parkinsons, dementia, HTN, Afib on Eliquis, chronic pain, s/p back surgery in June 2024 in [place], DM, HLD, BPH, chronic vertebral osteomyelitis, hypothyroidism brought from [facility] with rectal bleeding, found to have
diverticulitis, improved on Abx, GI recommended colonoscopy in 8 weeks.
Sutures from back removed by NeuroSx. Details of previous admission from [place] obtained: surgery was done on 08/11/24, patient fell out of ambulance in January 2024, then on August 10 2024 felt worsening back pain and admitted to the hospital.
Sugery was done for possible OM L3-L5 laminectomy and L4-L5 fusion. Also bone biopsy was done that showed benign fibrocartilage. There was no active infection. Discharged with plan from [place] since neither histopathology or culture suggested
infection. Nno Abx course was planned upon d/c. MRI in repeated and showed postOP changes. Patient will have to follow with his NeuroSx upon the d/c. Pain control sufficient with Fentanyl patch decreased to 25mg and Tramadol. TSH will need to be
rechecked in 2 weeks upon d/c as Synthroid increased. Constipation and urinary retention resolved. Pending d/c to [facility] on 09/05/24 as per CM
A/P:
#Acute blood loss anemia 2/2 lower GIB 2/2 diverticulitis exacerbated by Eliquis
S/p Kcentra in ED
Zosyn - switched to Augmentin on 09/03/24 since no fevers, no abdominal pain and patient improving
GI consult: restarted AC, EGD\\colonoscopy recommended in 8 weeks
No more recurrence of bleeding, medically stable for discharge to short-term rehab when insurance authorization has been obtained
#Afib, unspecified
Rate controlled, continue Eliquis
#Chronic pain 2/2 multiple back surgery
New constipation and urinary retention (however both can be explained with opioids and mostly bedbound status)
Continue fentanyl patch - decreased dose and patient tolerated well. Tramadol for breakthrough pain
Discussed with Sarah results of the MRI. Postsurgical changes seen. Previously - no infection on biopsy and discharged off Abx as per ID in [place]. No urgent need for any intervention.
Pain is expected and patient will need to follow with his neuroSx upon d/c
Sutures removed, wound healing well, small area of dehiscence of the skin w/o signs of infection
#Dementia, unspecified
Questionable Hx of parkinsonians
Appreciate psychiatry input, recommend continuing Ativan as needed
#Constipation with stool impaction most likely 2/2 opioids
Disimpacted in ED
Resolved, large BM on 09/03/24
Laxatives
Wean off opioids
#Urinary retention 2/2 opioids, poor ambulatory capacity
#BPH
Recurrent straight cath due to large volumes >500ml
Tov on 09/03/24, since patient became more mobile
Tamsulosin
#Hypothyroidism
#SHIRLEY
#HLD
Cont home meds, TSH high at 10.5, free T4 normal
Increased Levothyroxine - recheck TSH in 2-3 weeks upon d/c
#Apparent CKD stage 3a
follow Cr
DVT ppx Eliquis
Full code
Total time spent to see the patient on the floor, examine the patient, review data and lab results, discuss treatment plan with patient, nursing staff around 37 minutes.
Physical Exam
General: Obese, no acute distress
HEENT: Normocephalic, Atraumatic, EOMI, MMM
Respiratory: Clear to Auscultation bilaterally
Cardiac: Normal S1/S2, Regular Rate and Rhythm
GI: Soft, Nontender, Nondistended, Normal Bowel Sounds
Extremities: No Clubbing, Cyanosis, or Edema
Neuro: Nonfocal/Grossly Intact
Psych: Calm, Cooperative
Derm: No Visible lesions
Anticipated Discharge: Within 24 hours
Subjective/Interval History
-
Date of Service: September 05, 2024
Patient had a bowel movement yesterday, yellow in color. No black or bloody stools. No fever, no vomiting.
Objective Data
-
Vital Signs:
Vital Signs
Temp Pulse Resp BP Pulse Ox
97.5 F 75 17 142/73 96
09/05/24 07:00 09/05/24 07:00 09/05/24 07:00 09/05/24 07:00 09/05/24 07:00
I&O
09/04/24 09/05/24 09/06/24
06:59 06:59 06:59
Intake Total 2019 / 2019 1919 / 192
Output Total 4200 / 4200 2650 / 2650
Balance -2180 / -2180 -730 / -730
[2024-09-05] MEDS: MYCOSTATIN OINTMENT 1 APPLIC TOPICAL ×2 (08:58→21:03)
[2024-09-05 12:13] LABS: Glucose - Point of Care 173 mg/dl (70-99)
[2024-09-05] MEDS: NOVOLOG FLEXPEN-LOW RESISTANCE 1 UNITS SC ×2 (12:42→17:28)
--- NOTE | 2024-09-05 14:02 | CM ---
Addendum entered by GIORGIO Royal 09/05/24 17:03:
Received notification that patient is tearful as he was advised that he is medically stable but has to await determination from insurance. Placed a call to insurance with patient so that he could talk to logistics service representative and he calmed down after he
spoke with a rep who stated that all of his clinical has been received.
Original Note:
Reviewed chart, spoke with attending who stated that patient is medically cleared for discharge. Placed a call to [facility] and spoke with Bing in admissions who stated that patient can return there for SNF upon receipt of auth.
NPIs [id number]
Report [phone]

Placed a call to patient's insurance (spoke with a rep named, Shabana Ruiz) and obtained Pending Auth [id number]
Plan: Case management will continue to follow and assist with discharge planning. [facility] when stable.
[2024-09-05 15:00] VITALS: BP 155/77
[2024-09-05] MEDS: DURAGESIC 25 MCG/HR PATCH 1 PATCH TRANSDERM (16:09)
[2024-09-05] MEDS: ATIVAN 0.5 MG PO (16:10)
[2024-09-05 16:44] LABS: Glucose - Point of Care 191 mg/dl (70-99)
[2024-09-05] MEDS: CRESTOR 10 MG PO (21:01)
[2024-09-05] MEDS: MIRALAX 17 GRAMS PO (21:01)
[2024-09-05] MEDS: ULTRAM 50 MG PO (21:05)
[2024-09-05 21:57] LABS: Glucose - Point of Care 179 mg/dl (70-99)
[2024-09-05 23:55] VITALS: BP 147/68
[2024-09-06] MEDS: SYNTHROID 112 MCG PO (05:03)
[2024-09-06 07:00] VITALS: BP 131/92
[2024-09-06 07:46] LABS: Glucose - Point of Care 136 mg/dl (70-99)
[2024-09-06] MEDS: NOVOLOG FLEXPEN-LOW RESISTANCE SC (08:47)
[2024-09-06] MEDS: LIDOCAINE 4% PATCH 1 PATCH TOPICAL (08:47)
[2024-09-06] MEDS: PROTONIX 40 MG PO ×2 (08:48→21:57)
[2024-09-06] MEDS: AUGMENTIN 875 MG/125 MG 1 TABLET PO ×2 (08:48→21:56)
[2024-09-06] MEDS: MIRALAX 17 GRAMS PO ×2 (08:48→21:57)
[2024-09-06] MEDS: FLOMAX 0.4 MG PO (08:48)
[2024-09-06] MEDS: SENOKOT-S 1 TABLET PO ×2 (08:48→21:56)
[2024-09-06] MEDS: VITAMIN B1 100 MG PO (08:48)
[2024-09-06] MEDS: LAC HYDRIN, AM LACTIN LOTION 1 APPLIC TOPICAL (08:50)
[2024-09-06] MEDS: MYCOSTATIN OINTMENT 1 APPLIC TOPICAL ×2 (08:50→21:57)
[2024-09-06] MEDS: SANTYL OINTMENT 1 APPLIC TOPICAL (08:51)
[2024-09-06] MEDS: NORVASC 2.5 MG PO (08:51)
--- NOTE | 2024-09-06 08:55 | W.PN.HOSP.TC ---
Today's Communication/Plan
-
Discharge to rehab when insurance Auth has been obtained
Assessment / Plan
Assessment / Plan
74yo M with Parkinsons, dementia, HTN, Afib on Eliquis, chronic pain, s/p back surgery in June 2024 in [place], DM, HLD, BPH, chronic vertebral osteomyelitis, hypothyroidism brought from [facility] with rectal bleeding, found to have
diverticulitis, improved on Abx, GI recommended colonoscopy in 8 weeks.
Sutures from back removed by NeuroSx. Details of previous admission from [place] obtained: surgery was done on 08/11/24, patient fell out of ambulance in January 2024, then on August 10 2024 felt worsening back pain and admitted to the hospital.
Sugery was done for possible OM L3-L5 laminectomy and L4-L5 fusion. Also bone biopsy was done that showed benign fibrocartilage. There was no active infection. Discharged with plan from [facility] since neither histopathology or culture suggested
infection. Nno Abx course was planned upon d/c. MRI in repeated and showed postOP changes. Patient will have to follow with his NeuroSx upon the d/c. Pain control sufficient with Fentanyl patch decreased to 25mg and Tramadol. TSH will need to be
rechecked in 2 weeks upon d/c as Synthroid increased. Constipation and urinary retention resolved. Pending d/c to [facility] on 09/05/24 as per CM
A/P:
#Acute blood loss anemia 2/2 lower GIB 2/2 diverticulitis exacerbated by Eliquis
S/p Kcentra in ED
Zosyn - switched to Augmentin on 09/03/24 since no fevers, no abdominal pain and patient improving
GI consult: restarted AC, EGD\\colonoscopy recommended in 8 weeks
No more recurrence of bleeding, medically stable for discharge to short-term rehab when insurance authorization has been obtained
#Afib, unspecified
Rate controlled, resume Eliquis 09/06
#Chronic pain 2/2 multiple back surgery
New constipation and urinary retention (however both can be explained with opioids and mostly bedbound status)
Continue fentanyl patch - decreased dose and patient tolerated well. Tramadol for breakthrough pain
Discussed with Sarah results of the MRI. Postsurgical changes seen. Previously - no infection on biopsy and discharged off Abx as per ID in [place]. No urgent need for any intervention.
Pain is expected and patient will need to follow with his neuroSx upon d/c
Sutures removed, wound healing well, small area of dehiscence of the skin w/o signs of infection
#Dementia, unspecified
Questionable Hx of parkinsonians
Appreciate psychiatry input, recommend continuing Ativan as needed
#Constipation with stool impaction most likely 2/2 opioids
Disimpacted in ED
Resolved, large BM on 09/03/24
Laxatives
Wean off opioids
#Urinary retention 2/2 opioids, poor ambulatory capacity
#BPH
Recurrent straight cath due to large volumes >500ml
Tov on 09/03/24, since patient became more mobile
Tamsulosin
#Hypothyroidism
#SHIRLEY
#HLD
Cont home meds, TSH high at 10.5, free T4 normal
Increased Levothyroxine - recheck TSH in 2-3 weeks upon d/c
#Apparent CKD stage 3a
follow Cr
DVT ppx Eliquis
Full code
Total time spent to see the patient on the floor, examine the patient, review data and lab results, discuss treatment plan with patient, nursing staff around 39 minutes.
Physical Exam
General: Obese, no acute distress
HEENT: Normocephalic, Atraumatic, EOMI, MMM
Respiratory: Clear to Auscultation bilaterally
Cardiac: Normal S1/S2, Regular Rate and Rhythm
GI: Soft, Nontender, Nondistended, Normal Bowel Sounds
Extremities: No Clubbing, Cyanosis, or Edema
Neuro: Nonfocal/Grossly Intact
Psych: Calm, Cooperative
Derm: No Visible lesions
Anticipated Discharge: Within 24 hours
Subjective/Interval History
-
Date of Service: September 06, 2024
Patient had a bowel movement yesterday, states it was brown, denies black stools. He complains of being hungry. No fever, no vomiting.
Objective Data
-
Vital Signs:
Vital Signs
Temp Pulse Resp BP Pulse Ox
97.8 F 98 18 120/67 94
09/06/24 07:00 09/06/24 08:51 09/06/24 07:00 09/06/24 08:51 09/06/24 07:00
I&O
09/05/24 09/06/24 09/07/24
06:59 06:59 06:59
Intake Total 1920 / 1920 1440 / 1440
Output Total 2650 / 2650 2800 / 2800
Balance -730 / -730 -1360 / -1360
--- NOTE | 2024-09-06 10:25 | CM ---
Placed a call to [facility] and spoke with Bing in admissions who confirmed bed availability upon receipt of auth. Auth still pending. Bing denied ability to be able to accept patient without authorization as he is not a fpc resident.
Will await auth (will f/u with insurance to determine status.
Plan: Case management will continue to follow and assist with discharge planning. Transfer to [facility] upon receipt of auth.
[2024-09-06 10:53] LABS: Glucose - Point of Care 173 mg/dl (70-99)
[2024-09-06] MEDS: NOVOLOG FLEXPEN-LOW RESISTANCE 1 UNITS SC ×2 (11:52→16:46)
[2024-09-06] MEDS: ELIQUIS 5 MG PO ×2 (12:40→21:57)
[2024-09-06] MEDS: ULTRAM 50 MG PO (12:44)
--- NOTE | 2024-09-06 14:32 | CM ---
TC to [employer]
Pending Auth [id number] still pending.
Per Nickel Operator, clinicals not received.
PT/OT (P).
Please fax clinicals and therapy notes to fax# [phone].
Plan: [facility] once [employer] insurane auth received.
[2024-09-06] MEDS: ATIVAN 0.5 MG PO (14:55)
[2024-09-06 15:00] VITALS: BP 138/80
--- NOTE | 2024-09-06 15:11 | W.PN.UPDATE ---
Update Note
Progress Note Update
Pt seen, reviewed with nursing staff. Pt doing okay, being managed with Ativan 0.5 mg po as needed. No recent agitation noted. Pt being referred to SNF.
Imp/Rec: Dementia, unspecified, with anxiety- behavior stable for discharge to SNF
Continue po Ativan 0.5 mg on prn basis. Psychiatry will sign off
[2024-09-06 15:44] VITALS: BP 149/87; PULSE 93; O2SAT 100
[2024-09-06 15:56] VITALS: BP 149/87
[2024-09-06 16:19] LABS: Glucose - Point of Care 164 mg/dl (70-99)
--- NOTE | 2024-09-06 16:57 | CM ---
Clinicals with OT and PT, faxed to [employer]. Will await determination.
Plan: Case management will continue to follow and assist with discharge planning. SNF at [facility] when stable.
[2024-09-06 21:16] LABS: Glucose - Point of Care 174 mg/dl (70-99)
[2024-09-06] MEDS: CRESTOR 10 MG PO (21:57)
[2024-09-06 23:25] VITALS: BP 141/67
--- NOTE | 2024-09-07 00:23 | PTCARENOTE ---
AAOx3. Forgetful. Pt following direction. Medsitter removed. Bed and chair alarm plugged in.
[2024-09-07] MEDS: ULTRAM 50 MG PO (00:32)
[2024-09-07] MEDS: ATIVAN 0.5 MG PO ×2 (04:23→15:31)
[2024-09-07] MEDS: SYNTHROID 112 MCG PO (06:17)
[2024-09-07 07:30] VITALS: BP 152/79
[2024-09-07 08:04] LABS: Glucose - Point of Care 106 mg/dl (70-99)
[2024-09-07] MEDS: NOVOLOG FLEXPEN-LOW RESISTANCE SC (08:19)
[2024-09-07] MEDS: MIRALAX 17 GRAMS PO (08:25)
[2024-09-07] MEDS: LIDOCAINE 4% PATCH 1 PATCH TOPICAL (08:25)
[2024-09-07] MEDS: FLOMAX 0.4 MG PO (08:25)
[2024-09-07] MEDS: PROTONIX 40 MG PO (08:25)
[2024-09-07] MEDS: SENOKOT-S 1 TABLET PO (08:25)
[2024-09-07] MEDS: SANTYL OINTMENT 1 APPLIC TOPICAL (08:25)
[2024-09-07] MEDS: VITAMIN B1 100 MG PO (08:25)
[2024-09-07] MEDS: ELIQUIS 5 MG PO (08:25)
[2024-09-07] MEDS: NORVASC 2.5 MG PO (08:25)
[2024-09-07] MEDS: LAC HYDRIN, AM LACTIN LOTION 1 APPLIC TOPICAL (08:26)
[2024-09-07] MEDS: MYCOSTATIN OINTMENT 1 APPLIC TOPICAL (08:26)
[2024-09-07 11:35] LABS: Glucose - Point of Care 169 mg/dl (70-99)
[2024-09-07] MEDS: NOVOLOG FLEXPEN-LOW RESISTANCE 1 UNITS SC ×2 (11:48→17:46)
--- NOTE | 2024-09-07 13:10 | W.PN.HOSP.TC ---
Addendum entered and electronically signed by Micheal Tejada MD 09/08/24 17:05:
Correction, patient had acute kidney injury, not chronic kidney disease.
Creatinine was 1.5 upon admission, normalized to 1.1.
Original Note:
Today's Communication/Plan
-
Discharge to short-term rehab today
Assessment / Plan
Assessment / Plan
74yo M with Parkinsons, dementia, HTN, Afib on Eliquis, chronic pain, s/p back surgery in June 2024 in [place], DM, HLD, BPH, chronic vertebral osteomyelitis, hypothyroidism brought from [facility] with rectal bleeding, found to have
diverticulitis, improved on Abx, GI recommended colonoscopy in 8 weeks.
Sutures from back removed by NeuroSx. Details of previous admission from [place] obtained: surgery was done on 08/11/24, patient fell out of ambulance in January 2024, then on August 10 2024 felt worsening back pain and admitted to the hospital.
Sugery was done for possible OM L3-L5 laminectomy and L4-L5 fusion. Also bone biopsy was done that showed benign fibrocartilage. There was no active infection. Discharged with plan from [place] since neither histopathology or culture suggested
infection. Nno Abx course was planned upon d/c. MRI in repeated and showed postOP changes. Patient will have to follow with his NeuroSx upon the d/c. Pain control sufficient with Fentanyl patch decreased to 25mg and Tramadol. TSH will need to be
rechecked in 2 weeks upon d/c as Synthroid increased. Constipation and urinary retention resolved. Pending d/c to [facility] on 09/05/24 as per CM
A/P:
#Acute blood loss anemia 2/2 lower GIB 2/2 diverticulitis exacerbated by Eliquis
S/p Kcentra in ED
Zosyn - switched to Augmentin on 09/03/24 since no fevers, no abdominal pain and patient improving
GI consult: restarted AC, EGD\\colonoscopy recommended in 8 weeks
No more recurrence of bleeding, medically stable for discharge to short-term rehab today
Hemoglobin improved at 9.0, from 8.3 with resuming Eliquis on 09/06
#Afib, unspecified
Rate controlled, resumed Eliquis 09/06
#Chronic pain 2/2 multiple back surgery
New constipation and urinary retention (however both can be explained with opioids and mostly bedbound status)
Continue fentanyl patch - decreased dose and patient tolerated well. Tramadol for breakthrough pain
Discussed with Sarah results of the MRI. Postsurgical changes seen. Previously - no infection on biopsy and discharged off Abx as per ID in [place]. No urgent need for any intervention.
Pain is expected and patient will need to follow with his neuroSx upon d/c
Sutures removed, wound healing well, small area of dehiscence of the skin w/o signs of infection
#Dementia, unspecified
Questionable Hx of parkinsonians
Appreciate psychiatry input, recommend continuing Ativan as needed
#Constipation with stool impaction most likely 2/2 opioids
Disimpacted in ED
Resolved, large BM on 09/03/24
Laxatives
Wean off opioids
#Urinary retention 2/2 opioids, poor ambulatory capacity
#BPH
Recurrent straight cath due to large volumes >500ml
Tov on 09/03/24, since patient became more mobile
Tamsulosin
#Hypothyroidism
#SHIRLEY
#HLD
Cont home meds, TSH high at 10.5, free T4 normal
Increased Levothyroxine - recheck TSH in 2-3 weeks upon d/c
#Apparent CKD stage 3a
follow Cr
DVT ppx Eliquis
Full code
Physical Exam
General: Obese, no acute distress
HEENT: Normocephalic, Atraumatic, EOMI, MMM
Respiratory: Clear to Auscultation bilaterally
Cardiac: Normal S1/S2, Regular Rate and Rhythm
GI: Soft, Nontender, Nondistended, Normal Bowel Sounds
Extremities: No Clubbing, Cyanosis, or Edema
Neuro: Nonfocal/Grossly Intact
Psych: Calm, Cooperative
Derm: No Visible lesions
Anticipated Discharge: Today
Subjective/Interval History
-
Date of Service: September 07, 2024
Patient had a stool yesterday, brown. Denies bleeding. No fever, no vomiting.
Objective Data
-
Vital Signs:
Vital Signs
Temp Pulse Resp BP Pulse Ox
97.4 F 96 18 152/79 99
09/07/24 07:30 09/07/24 07:30 09/07/24 07:30 09/07/24 07:30 09/07/24 07:30
I&O
09/06/24 09/07/24 09/08/24
06:59 06:59 06:59
Intake Total 1440 / 1440 960 / 960
Output Total 2800 / 2800 1525 / 1525 600 / 600
Balance -1360 / -1360 -565 / -565 -600 / -600
--- NOTE | 2024-09-07 13:52 | CM ---
Tc to [facility], Pending Auth # [id number] still pending.
Email to [employer] sales account representative to see if case can be expedited.
[2024-09-07 14:32] LABS: Hematocrit 26.9 % (39.0-52.0); Mean Corp Hgb Conc. 33.5 g/dL (33.0-37.0); Mean Corpuscular Hgb 29.3 pg (27.0-31.0); Mean Corpuscular Volume 87.6 fL (80.0-94.0); Mean Platelet Volume 10.1 fL (7.4-10.4); Platelet Count 138 10^3/uL (130-400); Red Blood Cell Count 3.07 10^6/uL (4.70-6.10); Red Cell Dist. Width 16.1 % (11.5-14.5); White Blood Cell Count 7.6 10^3/uL (4.8-10.8)
--- NOTE | 2024-09-07 15:05 | CM ---
Received authorization from [employer] sales representative jewelry, [employer], who stated that patient has been approved from 09/07-09/13 Skilled level of care, NRD 09/14. Auth number [id number] Review needs to be faxed to [phone].
Placed a call to Bing in admissions at [facility]. She confirmed acceptance for patient. Will complete medical necessity and transfer sheet to [facility] community health director.
IMM Reviewed with patient. He is agreeable to discharge.
Report [phone]

Attending updated.
Plan: Case management will continue to follow and assist with discharge planning. Transfer to [facility] today.
[2024-09-07 16:00] VITALS: BP 148/82
--- NOTE | 2024-09-07 17:02 | W.DCSUMMARY ---
Discharge Summary
Discharge Data
Date of Admission: 08/30/24
Date of Discharge: 09/07/24
-
Pending Results: No
Hospital Course
Discharge diagnosis:
Acute blood loss anemia
Lower gastrointestinal bleed exacerbated by Eliquis
Acute diverticulitis
Paroxysmal atrial fibrillation on Eliquis
Acute kidney injury
Constipation with stool impaction, likely from opioids
Urinary retention secondary to opioids status post Keenan catheter
Chronic back pain with opioid dependency
Benign prostatic hypertrophy
Unspecified dementia
Hypothyroidism
Iron deficiency anemia
Hyperlipidemia
Consults: GI, neurosurgery
Hospital course:
74-year-old male with a past medical history of dementia, HTN, Afib on Eliquis, chronic pain, s/p back surgery in June 2024 in [place], DM, HLD, BPH, chronic vertebral osteomyelitis, and hypothyroidism was brought from [facility] for rectal
bleeding. Patient's Eliquis was held. He was seen in conjunction with GI, found to have diverticulitis, and was treated with antibiotics. His hemoglobin was 7.3 upon admission. He was transfused 2 units of packed red blood cells. His hemoglobin
improved to 8.8, and remained stable at 9.0 on the day of discharge. GI cleared the patient to resume his Eliquis. He did not have any recurrence of bleeding. GI recommends outpatient colonoscopy in 8 weeks. He will be discharged on Augmentin to
complete a 10-day course.
Sutures from his back were removed by Neuro[facility]. Details of previous admission from [place] obtained: Surgery was done on 08/11/24, patient fell out of ambulance in January 2024. On August 10, 2024, he felt worsening back pain and was admitted to the [facility]. Surgery was done for possible OM L3-L5 laminectomy and L4-L5 fusion. Also bone biopsy was done that showed benign fibrocartilage. There was no active infection. He was discharged without antibiotics from [facility] since neither histopathology or
culture suggested infection. MRI in repeated and showed postOP changes. Patient will have to follow up with his NeuroSx upon discharge from the rehab.
His back pain is currently controlled with Fentanyl patch, decreased to 25mg, and Tramadol. TSH will need to be rechecked in 2 weeks upon d/c as Synthroid was increased this hospital admission. Constipation and urinary retention resolved.
[facility]
Discharge planning: Required 45 minutes
Discharge Plan
-
Patient Disposition: Snf/SNF
Discharge Diagnosis/Procedures: diverticulitis
Condition: Good
Diet: Low Residue
Activity: With assistance
Driving Restrictions: As prior to admission
Blood Work: TSH in 2 weeks
Activity Restrictions/Additional Instructions:
Wound Care Instructions Sacrum- Clean with normal saline or soap and water. Apply Medihoney and cover with adaptic and sacral silicone border foam. Change daily and PRN if loose or soiled.
Low back wound -Clean gently with soap and water or saline and gently pat dry. Cover with silicone border foam and change Q 48 hours and PRN if loose or soiled.
Air surface
Turning schedule
Keep heels off-loaded with pillows or air cushion under calves
Follow up at wound care center call for an appointment.
Referrals:
Flor Tejada MD [Active] - in six weeks (for colonoscopy)
Kelsey Mills DO [Family Provider] - in two to three weeks (repeat TSH)
Prescriptions:
New
amoxicillin-pot clavulanate 875-125 mg Tablet
1 tab PO Q12 Qty: 10 0RF
polyethylene glycol 3350 [HealthyLax] 17 gram Powder In Packet
17 g PO BID Qty: 30 0RF
sennosides-docusate sodium 8.6-50 mg Tablet
1 tab PO BID Qty: 60 0RF
tramadol 50 mg Tablet
50 mg PO Q6HPRN PRN (Reason: moderate-severe pain) Qty: 6 0RF
pantoprazole 40 mg Tablet,Delayed Release (Dr/Ec)
40 mg PO BID Qty: 60 0RF
fentanyl 25 mcg/hr Patch 72 Hour
1 patch transdermal Q72H Qty: 1 0RF
levothyroxine 112 mcg Tablet
112 mcg PO DAILY @ 0600 Qty: 30 0RF
Continued
acetaminophen 325 mg Tablet
650 mg PO Q4HPRN MDD 3000 mg PRN (Reason: mild pain/temp >101)
nystatin 100,000 unit/gram Ointment
1 applic TOPICAL BID
thiamine HCl (vitamin B1) 100 mg Tablet
100 mg PO DAILY
amlodipine 2.5 mg Tablet
2.5 mg PO DAILY
melatonin 3 mg Tablet
3 mg PO HSPRN PRN (Reason: sleep)
Patient Comments:
08/30/24: to stop taking after 09/12/24.
aspirin 81 mg Tablet,Delayed Release (Dr/Ec)
81 mg PO DAILY
tamsulosin 0.4 mg Capsule
0.4 mg PO DAILY
ferrous sulfate 325 mg (65 mg iron) Tablet
325 mg PO DAILY
lidocaine 5 % Adhesive Patch,Medicated
1 patch TOPICAL DAILY
Fleet Enema 19-7 gram/118 mL Enema
118 ml [place] DAILYPRN PRN (Reason: no bm 24 hrs aftr bisacodyl)
ammonium lactate 12 % Cream
1 applic TOPICAL DAILY
insulin aspart U-100 100 unit/mL Cartridge
1 sliding scale dose SC AC
Rx Instructions:
141-180=2u,181-220=4u,221-260=6u,261-300=8u,301-340=10u,341+=12u
rosuvastatin 10 mg Tablet
10 mg PO HS
metoprolol tartrate 25 mg Tablet
25 mg PO BID
cholecalciferol (vitamin D3) [Vitamin D3] 125 mcg (5,000 unit) Tablet
125 mcg PO DAILY
MediHoney (honey) 80 % Gel
1 applic TOPICAL DAILY
MediHoney (honey) 80 % Gel
1 applic TOPICAL DAILYPRN PRN (Reason: sacral wound soilage)
apixaban 5 mg Tablet
5 mg PO BID
lorazepam 0.5 mg Tablet
0.5 mg PO BIDPRN PRN (Reason: anxiety) Qty: 4 0RF
Discontinued
fentanyl 50 mcg/hr Patch 72 Hour
1 patch TRANSDERMAL Q72H
levothyroxine 100 mcg Tablet
100 mcg PO DAILY
magnesium hydroxide 400 mg/5 mL Suspension
30 ml PO [id number] PRN (Reason: no bm 3 days)
bisacodyl 10 mg Suppository
10 mg [place] DAILYPRN PRN (Reason: no bm 24 hrs aftr mom)
omeprazole 20 mg Capsule,Delayed Release(Dr/Ec)
20 mg PO DAILY
cefdinir 300 mg Capsule
300 mg PO BID
Patient Comments:
08/30/24: to take for 10 days, starting 08/26/24
oxycodone 5 mg Tablet
5 mg PO Q6HPRN PRN (Reason: moderate pain)
calcium acetate 667 mg Tablet
1,334 mg PO TID
Discharge Orders:
Discharge Patient (As Directed); Ordered 09/07/24
Ordered By: Micheal Tejada
Discharge Date and Time
Discharge Date/Time: 09/07/24 18:35
Print Language: CYMRO
[2024-09-07 17:39] LABS: Glucose - Point of Care 181 mg/dl (70-99)
== END 2024-09-07 18:35 | DRG 377 ==
LOC: 3 WEST ACU 20:09
PROVIDERS: Internal Medicine; ADMITTING PHYSICIAN Internal Medicine; ATTENDING PHYSICIAN Family Medicine; CONSULT PHYSICIAN Internal Medicine Gastroenterology; EMERGENCY PHYSICIAN Emergency Medicine; FAMILY PHYSICIAN Hospitalist; OTHER PHYSICIAN Psychiatry & Neurology Psychiatry
PROC: 30233N1 Transfusion of Nonautologous Red Blood Cells into Peripheral Vein, Percutaneous Approach (ICD-10-PCS; 2024-08-30)
PROC: 30283B1 Transfusion of Nonautologous 4-Factor Prothrombin Complex Concentrate into Vein, Percutaneous Approach (ICD-10-PCS; 2024-08-30)
DX: K57.33 Diverticulitis of large intestine without perforation or abscess with bleeding (principal); L89.153 Pressure ulcer of sacral region, stage 3; D62 Acute posthemorrhagic anemia; F02.818 Dementia in other diseases classified elsewhere, unspecified severity, with other behavioral disturbance; I13.0 Hypertensive heart and chronic kidney disease with heart failure and stage 1 through stage 4 chronic kidney disease, or unspecified chronic kidney disease; F02.84 Dementia in other diseases classified elsewhere, unspecified severity, with anxiety; D68.32 Hemorrhagic disorder due to extrinsic circulating anticoagulants; M46.26 Osteomyelitis of vertebra, lumbar region; I95.9 Hypotension, unspecified; M54.9 Dorsalgia, unspecified; D50.9 Iron deficiency anemia, unspecified; I48.91 Unspecified atrial fibrillation; I50.9 Heart failure, unspecified; E03.9 Hypothyroidism, unspecified; E78.00 Pure hypercholesterolemia, unspecified; E11.69 Type 2 diabetes mellitus with other specified complication; N28.1 Cyst of kidney, acquired; K21.9 Gastro-esophageal reflux disease without esophagitis; G20.A1 Parkinson's disease without dyskinesia, without mention of fluctuations; F02.80 Dementia in other diseases classified elsewhere, unspecified severity, without behavioral disturbance, psychotic disturbance, mood disturbance, and anxiety; G89.29 Other chronic pain; N18.31 Chronic kidney disease, stage 3a; N40.1 Benign prostatic hyperplasia with lower urinary tract symptoms; R33.8 Other retention of urine; K59.03 Drug induced constipation; T40.2X5A Adverse effect of other opioids, initial encounter; T45.515A Adverse effect of anticoagulants, initial encounter; Z98.1 Arthrodesis status; Z48.02 Encounter for removal of sutures; Z74.01 Bed confinement status; Z79.891 Long term (current) use of opiate analgesic; Z79.890 Hormone replacement therapy; Z79.84 Long term (current) use of oral hypoglycemic drugs; Z79.82 Long term (current) use of aspirin; Z79.4 Long term (current) use of insulin; Z79.01 Long term (current) use of anticoagulants
CPT/HCPCS: 72148; 74174; 80048; 80053; 82607; 82728; 82746; 82962; 83540; 83550; 84439; 84443; 85014; 85018; 85025; 85027; 85384; 85610; 85730; 86850; 86900; 86901; 86920; 87070; 92526; 92610; 93005; 96365; 96375; 97162; 97166; 99285; J2916; J7168; P9016; Q9967

== ENCOUNTER 2024-10-13 03:41 | Inpatient (IN) | payer MEDICARE, SELFPAY ==
[2024-10-12 23:18] VITALS: BP 106/56; BMI 35.6
[2024-10-12 23:44] LABS: % Basophils 0.5 % (0-2); % Eosinophils 3.9 % (0-6); % Immature Granulocytes 0.2 % (0-0.5); % Lymphocytes 21.5 % (20.5-51.1); % Monocytes 9.1 % (1.7-9.3); % Neutrophils 64.8 % (42.2-75.2); Absolute Eosinophils 0.3 10^3/uL (0-0.7); Absolute Lymphocytes 1.4 10^3/uL (1.2-3.4); Absolute Monocytes 0.6 10^3/uL (0.1-0.6); Absolute Neutrophils 4.2 10^3/uL (1.4-6.5); Hematocrit 23.7 % (39.0-52.0); Hemoglobin 7.8 g/dL (13.0-18.0); Mean Corp Hgb Conc. 32.9 g/dL (33.0-37.0); Mean Corpuscular Hgb 30.2 pg (27.0-31.0); Mean Corpuscular Volume 91.9 fL (80.0-94.0); Mean Platelet Volume 9.2 fL (7.4-10.4); Nucleated Red Blood Cells % 0 % (-); Platelet Count 152 10^3/uL (130-400); Red Blood Cell Count 2.58 10^6/uL (4.70-6.10); Red Cell Dist. Width 16.3 % (11.5-14.5); White Blood Cell Count 6.5 10^3/uL (4.8-10.8)
[2024-10-13] VITALS (8 sets, daily range): BP systolic 96–168; BP diastolic 55–97; BMI 37.6
[2024-10-13 00:01] LABS: NT-proBNP 5060 pg/ml
--- NOTE | 2024-10-13 00:03 | ED.GENMED ---
History of Present Illness
General
Chief Complaint: Swelling
Source: patient and other (Nursing)
Exam Limitations: none
Time Seen by Provider: 10/12/24 23:36
History of Present Illness
History of Present Illness:
This is a 74 year old male that is brought in by ambulance with c/o bilateral leg swelling. States that he just wanted to get out of that place. Told by nursing that patient was sent in due to bilateral leg swelling, dizziness, nausea and chronic
back pain. Told that the patient was just started on Lasix today but the PCP. Patient states that he has urinary burning and has been nauseated with diarrhea all the time. States that he is dizzy. Denies any fever, chills, chest pain, SOB, abd pain,
vomiting, headache.
Past History
Past History
ED Past Medical History: Arrthythmia (Atrial fib), HTN, Hypercholesterolemia, IDDM, [place] (X 2), Hypothyroidism and Other (Chronic back pain, Sacral decub, Diverticulitis, Compression fracture, )
ED Past Surgical History: Orthopedic (Spinal fusion, )
Social History
Tobacco: Former smoker
Alcohol: None
Personal:
Review of Systems
Review of Systems
All Other Systems: ROS reviewed and negative except as documented in HPI and ROS
Constitutional: Reports no symptoms; Denies fever or chills
EENT: Reports no symptoms
Respiratory: Reports no symptoms; Denies cough or trouble breathing
Cardiac: Reports no symptoms; Denies chest pain
ABD/GI: Reports nausea and diarrhea; Denies abdominal pain or vomiting
: Reports dysuria; Denies frequency or urgency
Musculoskeletal: Reports edema (Bilateral leg edema)
Skin: Reports no symptoms
Neurological: Reports dizzy; Denies headache
Psychiatric: Reports no symptoms
Phy Exam
General Physical Exam
General Presentation: no apparent distress
General age: appears stated age
General Skin: warm and dry
General Habitus: debilitated, elderly and obese
General Mental: alert
General Hydration: appears well hydrated
ENT Exam
ENT Exam: TM's normal, pharynx normal and neck supple
Eye Exam
Eye Exam: EOMI
Cardiovascular Exam
Cardiovascular Exam: normal peripheral pulses and irregularly irregular
Pulmonary Exam
Pulmonary Exam: lungs clear, no respiratory distress, no rales, chest non tender, no crackles, no rhonchi, no wheezing and other (Course cough noted)
Gastrointestinal Exam
Gastrointestinal Exam: normal bowel sounds, non tender, soft, no organomegaly, no pulsatile mass, non distended and other (Rectal exam Brown hem negative. )
Musculoskeletal Exam
Musculoskeletal Exam: edema (Bilateral leg edema +2pitting)
Skin Exam
Skin Exam: normal color, warm/dry, no petechia and other (Sacral decub noted)
Scores
Heart Failure Risk
Heart Failure Risk Score: Yes
History of Stroke or TIA: No
History of intubation for respiratory distress: No
Heart rate on ED arrival >/= 110: No
SaO2 <90% on arrival on room air: No
HR >/=110 during 3min walk test (or too ill to perform test): Yes
ECG has acute ischemic changes: No
Urea >/=12mmol/L (BUN 33.6mg/dL): No
Serum CO2>/=35mmol/L: No
Troponin I or T elevated to [place] Level (0.4mg/dL): No
NT-proBNP >/=5,000ng/L (5,000pg/ml): Yes
HF Risk Score: 3
Admission Status: HIGH RISK 15.9% Consider SNF treatment or admission to hospital
Course
Orders/Labs/Results
Orders:
Orders
10/12/24 23:33
Complete Blood Count/With Diff Urgent
Comprehensive Metabolic Panel Urgent
Pro-BNP [NT-proBNP] Urgent
Troponin I Urgent
Comment: ADD ON AT 0023
10/12/24 23:54
Add On- LAB Urgent
Tests Added?: troponin
10/13/24 00:03
CR Chest - 2 Views Urgent
Comment:
Reason For Exam: Edema.
10/13/24 00:05
Ondansetron Injectable [Zofran] 4 mg IV NOW STA
10/13/24 00:06
Straight cath- Treatment ONCE
10/13/24 00:07
CT Head W/o Iv Contrast Urgent
Comment:
Reason For Exam: Dizziness
10/13/24 00:12
Electrocardiogram (*1) Urgent
Reason for Study: Vertigo / Dizzy
EKG- Treatment ONCE
10/13/24 00:55
Type+Screen Urgent
Urinalysis Reflex To Culture Urgent
Date Specimen was Collected: 10/13/24
Time Specimen was Collected: 00:13
Urine Microscopic Reflex Cult Urgent
Abnormal Lab Results
10/12/24 10/13/24
23:33 00:55
RBC 2.58 L 10^6/uL
(4.70-6.10)
Hgb 7.8 L g/dL
(13.0-18.0)
Hct 23.7 L %
(39.0-52.0)
MCHC 32.9 L g/dL
(33.0-37.0)
RDW 16.3 H %
(11.5-14.5)
BUN 31 H mg/dl
(9-20)
Creatinine 1.4 H mg/dL
(0.7-1.3)
Glucose 119 H mg/dl
(70-99)
Alkaline Phosphatase 182 H U/L
(38-126)
Albumin 3.1 L g/dl
(3.5-5.0)
Leukocyte Esterase Rfl Trace A
(Negative)
10/12/24 23:33
10/12/24 23:33
H/H low, Dehydration. acute renal insufficiency, Hyperglycemia. Alk phos elevation. Urine negative for infection. Troponin 0.013, Pro-BNP 5060
Vital Signs
Initial and Last Documented VS:
Initial Vital Signs
Temp Pulse Resp BP Pulse Ox
97.7 F 78 15 106/56 95
10/12/24 23:18 10/12/24 23:18 10/12/24 23:18 10/12/24 23:18 10/12/24 23:18
Last Documented Vital Signs
Temp Pulse Resp BP Pulse Ox
97.7 F 66 17 106/56 95
10/12/24 23:18 10/13/24 00:15 10/13/24 00:15 10/12/24 23:18 10/13/24 00:15
Economic Research Assistant consulted with Physician
Economic Research Assistant consulted with physician?: Yes
Name of Physician Consulted: Dr. Petit
MDM/Problems Addressed
Differential Diagnosis Includes:
Bilateral leg edema, CHF
MDM/Problems Addressed:
This is a 74 year old male that comes in by ambulance with c/o bilateral leg edema, nausea, chronic back pain, and dizziness.
Will check labs. Urine and get CT of the head.
Back into see patient. Explained that his chest x-ray looks like there is a little Pneumonia vs Pleural effusion. His Hgb is also low but stool is negative for blood. Will give patient antibiotics and admit. Hospitalist notified.
Chronic conditions affecting care: DM
Acute Exacerbation and/or Progression of Chronic Illness:
NA
*Radiology
Radiology exam reviewed: preliminary read by ED provider (Chest- Right lower lobe Effusion vs Pneumonia) and radiology read reviewed (CT head= night hawk- No hemorrhage or other acute intracranial process identified. )
*Pulse Oximetry
Patient hypoxic: no
*Dross Puller Interpretation
Rate: normal
Heart Rate: 68
Rhythm: a-fib
*Critical Care Note
Total Time (30-74mins, 75-104mins- exclusive of procedures): Not Applicable
ED Attending Note
-
Portions of this chart may have been created with voice recognition software.� Occasional wrong word or��sound alike� substitutions may have occurred due to the inherent limitations of voice recognition software.
Discharge Plan
Departure
Patient Disposition: Admit
Date of Disposition: 10/13/24
Time of Disposition: 02:09
Admit to: Telemetry
Presentation/result/management discussed w/ accepting MD/DO: Hospitalist
Patient with high blood pressure during this ER visit?: No
Condition: Good
Covid-19: Not Applicable
Discharge Problem:
Pneumonia Vs Pleural effusion, Low hemoglobin
Prescriptions:
No Action
acetaminophen 325 mg Tablet
650 mg PO Q4HPRN MDD 3000 mg PRN (Reason: mild pain/temp >101)
nystatin 100,000 unit/gram Ointment
1 applic TOPICAL BID
thiamine HCl (vitamin B1) 100 mg Tablet
100 mg PO DAILY
tamsulosin 0.4 mg Capsule
0.4 mg PO DAILY
ferrous sulfate 325 mg (65 mg iron) Tablet
325 mg PO DAILY
lidocaine 5 % Adhesive Patch,Medicated
1 patch TOPICAL DAILY
Fleet Enema 19-7 gram/118 mL Enema
118 ml [place] DAILYPRN PRN (Reason: if no bm 24 hrs aftr bisacodyl)
insulin aspart U-100 100 unit/mL Cartridge
2 - 12 sliding scale dose SC AC
Rx Instructions:
141-180=2u; 181-220=4u; 221-260=6u; 261-300=8u; 301-340=10u; 341+=12u
rosuvastatin 10 mg Tablet
10 mg PO HS
metoprolol tartrate 25 mg Tablet
12.5 mg PO BID
cholecalciferol (vitamin D3) [Vitamin D3] 125 mcg (5,000 unit) Tablet
125 mcg PO DAILY
polyethylene glycol 3350 [HealthyLax] 17 gram Powder In Packet
17 g PO BID Qty: 30 0RF
sennosides-docusate sodium 8.6-50 mg Tablet
1 tab PO BID Qty: 60 0RF
tramadol 50 mg Tablet
50 mg PO Q6HPRN PRN (Reason: moderate-severe pain) Qty: 6 0RF
pantoprazole 40 mg Tablet,Delayed Release (Dr/Ec)
40 mg PO BID Qty: 60 0RF
fentanyl 25 mcg/hr Patch 72 Hour
1 patch transdermal Q72H Qty: 1 0RF
furosemide 40 mg Tablet
40 mg PO BID
magnesium hydroxide [Milk of Magnesia] 400 mg/5 mL Suspension
30 ml PO DAILYPRN PRN (Reason: if no bm after 3 days)
bisacodyl [Dulcolax (bisacodyl)] 10 mg Suppository
10 mg [place] DAILYPRN PRN (Reason: if no bm in 24hrs after MOM)
Santyl 250 unit/gram Ointment
1 applic TOPICAL PRN PRN (Reason: soilage cleanse)
Rx Instructions:
apply to sacrum
Santyl 250 unit/gram Ointment
1 applic TOPICAL DAILY
Rx Instructions:
apply to sacrum
levothyroxine 112 mcg tablet
112 mcg PO DAILY@0600
Referrals:
Kelsey Mills DO [Family Provider] -
Interventions
Interventions:
*Risk Screen - Suicide Last Done: 10/12/24 23:18
*General Assessment Last Done: 10/12/24 23:18
*Neglect/Abuse Screening Last Done: 10/12/24 23:18
ED- Fall Risk Assessment Last Done: 10/12/24 23:18
*ED COVID-19 Vaccine History Last Done: 10/12/24 23:18
ED- Cardiac Assessment Last Done: 10/12/24 23:30
ED- Pulmonary Assessment Last Done: 10/12/24 23:27
ED-Skin Assessment Last Done: 10/12/24 23:27
Discharge Date and Time
Print Language: KITTITIAN
[2024-10-13 00:06] LABS: ALT (SGPT) 22 U/L (0-50); AST (SGOT) 31 U/L (17-59); Albumin 3.1 g/dl (3.5-5.0); Alkaline Phosphatase 182 U/L (38-126); Blood Urea Nitrogen 31 mg/dl (9-20); Calcium 8.7 mg/dl (8.4-10.2); Carbon Dioxide 23 mmol/L (22-30); Chloride 104 mmol/L (98-107); Estimated Creatinine Clearance 59 ml/min; Glucose 119 mg/dl (70-99); Potassium 4.6 mmol/L (3.5-5.1); Sodium 138 mmol/L (135-145); Total Bilirubin 0.3 mg/dl (0.2-1.3); Total Protein 6.7 g/dl (6.3-8.2); eGFR 53.07
[2024-10-13] MEDS: ZOFRAN 4 MG IV (00:22)
[2024-10-13 01:06] LABS: Troponin I 0.013 ng/ml
[2024-10-13 01:14] LABS: Urine Albumin Trace (Neg - Trace); Urine Bilirubin Negative (Negative); Urine Character Clear (Clear); Urine Color Yellow; Urine Glucose Negative (Negative); Urine Ketone Negative (Negative); Urine Leukocyte Trace (Negative); Urine Nitrite Negative (Negative); Urine Occult Blood Negative (Negative); Urine Urobilinogen Negative (Neg - 1+)
[2024-10-13 01:40] LABS: Urine Amorphous Seen; Urine Hyaline Cast >15 /LPF (0-2); Urine Mucus Many; Urine Squamous Cell >30 /LPF (Few)
[2024-10-13 01:44] LABS: Urine Bacteria Many (Negative)
--- NOTE | 2024-10-13 02:06 | EDRN ---
This RN has been in pt's room ten times to reposition patient. Pt using call ontiveros and yelling as soon as nurse leaves room. RN instructed pt to make needs known when RN is in room and to use call ontiveros appropriately. Pt stated, 'Quit your bitching.'
RN stated that is inappropriate and please do not speak to RN this way. Pt repositioned and stated he is in comfortable position and all needs are met at this time. RN left room and pt immediately put implementation lead ontiveros and yelling. ward attendant notified and
at bedside.
[2024-10-13] MEDS: ZOSYN 50 IV (02:16)
[2024-10-13] MEDS: VANCOCIN 540 MG IV (02:46)
--- NOTE | 2024-10-13 03:08 | HPS.HSE ---
Family Physician
-
Family Physician: Kelsey Mills,
Chief Complaint
-
Lower extremity swelling
History of Present Illness
This is a 74-year-old male was past medical history significant for atrial fibrillation previously on anticoagulation, hypertension, diabetes, hyperlipidemia, BPH, a history of chronic vertebral osteomyelitis status post surgery, hypothyroidism,
recent episode of diverticulitis with GI bleed, chronic iron deficiency anemia, nonspecified heart failure who presents to the emergency department with lower extremity swelling according to the rehab facility.
Patient himself has no acute complaint. He stated that he would rather be out of the rehab. He does note bilateral lower extremity swelling. He states that they have been doing anything about his swelling which has been going on for some time.
He denies shortness of breath at rest. He is quite debilitated but reports that he can be upright and does walk. No known dyspnea on exertion. Unable to tell me about any weight gain. He denies cough, fevers or chills. He denies palpitations.
He reports lightheadedness when he stands for physical therapy. Patient states that he has urinary burning and has been nauseated with diarrhea all the time. Records show Lasix 40 mg twice daily was started on October 12. No known melena or
hematochezia. No known hematemesis. Rectal exam in the emergency department was negative for occult blood.
In the ED he was afebrile, blood pressure pressure ranged from 96-110/68 with a pulse in the 50s to 70s. He is satting at 98% on 2 L. ECG shows atrial fibrillation with rate in the 60s. He did have some RR prolongation to about 1.5 seconds. On
telemetry he had RR prolongation to about 3 seconds. Hemoglobin was 7.8, white count was 6.5 and platelet count was 152. His troponin was negative. BNP was elevated at 5000. Electrolytes within normal limits and BUN/creatinine slightly elevated
at 31 and 1.4 compared to prior.
UA was negative for acute infection with bacteria and squamous cells reflecting contamination no WBCs and trace leukocyte esterase. CT of the head was negative. Chest x-ray shows increased vascular markings with some cephalization and right lower
lobe density which could be confluent pulmonary edema versus infectious infiltrate.
Medical History
Past Medical History
Past Medical History: Reports Arrhythmia (Permanent atrial fibrillation), Dementia, Hypercholesterolemia, Hypothyroidism, IDDM and Other (BPH)
Additional Past Medical History:
Diverticulitis with GI bleed
Past Surgical History: Reports Orthopedic (Back surgery status post plan of fusion in the L4-5, L3 L5 laminectomy)
Social History
Unable to obtain full social history at this time due to: Dementia
Tobacco: Non-smoker
Alcohol: None
Drug: None
Living: [facility]
Employment: Not Employed
Family History
Family History: Not pertinent
Allergies / Home Medications
Allergies reflects when Allergies were last updated in [facility].
Home Medications with original date entered in [facility]
Allergy/Medication List:
Allergies
Allergy/AdvReac Type Severity Reaction Status Date / Time
metformin Allergy Unknown Verified 10/12/24 23:31
Home Medications
acetaminophen 325 mg tablet 650 mg PO Q4HPRN PRN mild pain/temp >101 08/30/24
cholecalciferol (vitamin D3) 125 mcg (5,000 unit) tablet (Vitamin D3) 125 mcg PO DAILY Supplement 08/30/24
ferrous sulfate 325 mg (65 mg iron) tablet 325 mg PO DAILY Supplement 08/30/24
insulin aspart U-100 100 unit/mL subcutaneous cartridge 2 - 12 sliding scale dose SC AC Diabetes 08/30/24
lidocaine 5 % topical patch 1 patch topical DAILY lower back 08/30/24
metoprolol tartrate 25 mg tablet 12.5 mg PO BID Blood Pressure 08/30/24
nystatin 100,000 unit/gram topical ointment 1 applic topical BID sacrum/jasmin-area 08/30/24
rosuvastatin 10 mg tablet 10 mg PO HS High Cholesterol 08/30/24
sodium phosphates 19 gram-7 gram/118 mL enema (Fleet Enema) 118 ml SD DAILYPRN PRN if no bm 24 hrs aftr bisacodyl 08/30/24
tamsulosin 0.4 mg capsule 0.4 mg PO DAILY Urinary Issue 08/30/24
thiamine HCl (vitamin B1) 100 mg tablet 100 mg PO DAILY Supplement 08/30/24
fentanyl 25 mcg/hr transdermal patch 1 patch transdermal Q72H #1 ea 09/04/24
pantoprazole 40 mg tablet,delayed release 40 mg PO BID #60 tabs 09/04/24
polyethylene glycol 3350 17 gram oral powder packet (HealthyLax) 17 g PO BID #30 ea 09/04/24
sennosides 8.6 mg-docusate sodium 50 mg tablet 1 tab PO BID #60 tabs 09/04/24
tramadol 50 mg tablet 50 mg PO Q6HPRN PRN moderate-severe pain #6 tabs 09/04/24
bisacodyl 10 mg rectal suppository (Dulcolax (bisacodyl)) 10 mg SD DAILYPRN PRN if no bm in 24hrs after MOM 10/12/24
collagenase clostridium histo. 250 unit/gram topical ointment (Santyl) 1 applic topical DAILY 10/12/24
collagenase clostridium histo. 250 unit/gram topical ointment (Santyl) 1 applic topical PRN PRN soilage cleanse 10/12/24
furosemide 40 mg tablet 40 mg PO BID 10/12/24
levothyroxine 112 mcg tablet 112 mcg PO DAILY@0600 10/12/24
magnesium hydroxide 400 mg/5 mL oral suspension (Milk of Magnesia) 30 ml PO DAILYPRN PRN if no bm after 3 days 10/12/24
Review of Systems
-
Unable to obtain full review of systems at this time due to: Dementia
History Source: Patient
Constitutional: Reports No Symptoms
EENT: Reports No Symptoms
Respiratory: Reports No Symptoms
Cardiac: Reports No Symptoms and Other (leg swelling)
Abdomen/GI: Reports No Symptoms
: Reports No Symptoms
Musculoskeletal: Reports Edema
Skin: Reports No Symptoms
Neurological: Reports Dizzy
Endocrine: Reports No Symptoms
Hematologic/Lymphatic: Reports No Symptoms
Psych: Reports No Symptoms
Physical Exam
Vital Signs
Vital Signs
Temp Pulse Resp BP Pulse Ox
97.7 F 75 19 96/68 100
10/12/24 23:18 10/13/24 03:00 10/13/24 03:00 10/13/24 02:00 10/13/24 03:00
Physical Exam
General: No Apparent Distress, Comfortable and Appears Chronically Ill
HEENT: NormoCephalic, Anicteric, Moist mucous membranes, Atraumatic and Oxygen
Respiratory: Clear (anteriorly)
Cardiac: S1/S2 and Irregular Rhythm
Breast: Deferred by me
GI: Soft, Non Tender, Non Distended and Normal Bowel Sounds
Rectal: Deferred by Provider
Genito-urinary: Deferred by me
Musculoskeletal: No Clubbing, No Cyanosis, Edema, Left Lower Extremity and Edema, Right Lower Extremity
Skin: Warm
Neuro: AO x 3
Hematologic/Lymphatic: No Lymphadenopathy
Psych: Calm
Laboratory Results
-
10/12/24 23:33
10/12/24 23:33
Laboratory Results
Total Bilirubin 0.3 mg/dl (0.2-1.3) 10/12/24 23:33
AST 31 U/L (17-59) 10/12/24 23:33
ALT 22 U/L (0-50) 10/12/24 23:33
Alkaline Phosphatase 182 U/L (38-126) H 10/12/24 23:33
Troponin I 0.013 ng/ml 10/12/24 23:33
Data Reviewed
-
Diagnostic Radiology: Image Personally Visualized and interpreted
Medical Tests (Nuc Med, Echo, EKG etc): Image Personally Visualized and interpreted
Lab Data: Labs Reviewed by me
Old Records: Reviewed
Impression/Plan
-
IMPRESSION:
74 M with dementia brought to ED for lower extremity swelling. Found to be hypoxic in ED with infiltrates. Has elevated BNP, bilateral leg edema and vascular congestion. Suspect new diagnosis fo CHF. AFIB with intermittent long RR/pauses as long
as 3 seconds on metoprolol 12.5 bid. ECG otherwise unremarkable and troponin negative. Hgb is stable with negative rectal exam.
PLAN:
1. Hypoxia - New hypoxia requiring about 2 L of Oxygen. Pulmonary vascular congestion and edema, possible opacification in R base. No fevers, no leukocytosis. No cough. Suspect more CHF than infection given total body volume overload
-admit to telemetry
- will start IV lasix as tolerated by bp
- echo in am
- check tsh/free t4, patient on levothyroxin with recently adjusted dose
- check procalctonin, continue abx for CAP + vanc if +
2. CHF - elevated bnp, total body volume overload. No prior CHF, CAD. h/o AFIB
- as above, telemetry, echo, lasix iv bid and follow weight and i/o
- cardiology consult
3. Anemia - Hgb 7.8. h/o SHIRLEY, recent diverticulitis with GI bleed, transfused and discharged at hgb of around 9.
- type and screen. no indication for acute transfusion
- continue oral supplementation
- iron panel, b12, folate
3. AFIB - Not curently on AC. Cleared to restart Ac after last GI bleed by gastroenterology. Check with rehab facility. Some prolonged RR interval on tele without symptoms. On appropriate bb.
- holding eliquis pending confirmation
- continue metoprolol 12.5 bid and monitor rates on monitor, if frequent or long pauses, d/c metoprolol
- cardiology consulted for new CHF.
4. DM II
- currently only sliding scale achs
5. GERD
- ppi po bid
6. Chronic back pain - history of chronic vertebral osteo. s/p L3-L5 laminectomy and L4-5 fusion in july. Biopsy negative for infection.
- continue pain control
- follow up with outpatient neurosurgery
DVT PPX - lovenox sq for now
Code status - full Code
--- NOTE | 2024-10-13 05:00 | PTCARENOTE ---
Pt arrived to [facility] from ED and was a pullover assist x4 from stretcher to bed. VSS, bed alarm in place, pt rings appropriately. Pt is AAOx3 but forgetful and tearful at times. Bed in lowest position.
[2024-10-13] MEDS: SYNTHROID 112 MCG PO (06:09)
--- NOTE | 2024-10-13 07:07 | PTCARENOTE ---
Pt's home med list states that pt receives 1 fentanyl patch transdermal q72h. When this RN performed an admission skin assessment on pt, this RN noted two 25 mcg/hr fentanyl patches on pt's shoulders bilaterally; neither patch had a date noted
stating when they were placed. Will pass along to day shift RN.
[2024-10-13 07:22] LABS: Glucose - Point of Care 119 mg/dl (70-99)
[2024-10-13 07:54] LABS: Hematocrit 24.4 % (39.0-52.0); Hemoglobin 7.6 g/dL (13.0-18.0); Mean Corp Hgb Conc. 31.1 g/dL (33.0-37.0); Mean Corpuscular Hgb 29.6 pg (27.0-31.0); Mean Corpuscular Volume 94.9 fL (80.0-94.0); Mean Platelet Volume 9.3 fL (7.4-10.4); Platelet Count 155 10^3/uL (130-400); Red Blood Cell Count 2.57 10^6/uL (4.70-6.10); Red Cell Dist. Width 16.7 % (11.5-14.5); White Blood Cell Count 5.2 10^3/uL (4.8-10.8)
[2024-10-13 08:17] LABS: Iron 54 ug/dl (49-181); Magnesium 1.9 mg/dl (1.6-2.3); Phosphorus 4.7 mg/dl (2.5-4.5)
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
[2024-10-13] MEDS: NOVOLOG FLEXPEN-LOW RESISTANCE SC ×2 (08:22→15:32)
[2024-10-13 08:26] LABS: Percent Saturation 24 % (20-50); Total Iron Binding Capacity 222 ug/dl (261-462)
[2024-10-13] MEDS: SENOKOT-S 1 TABLET PO (08:32)
[2024-10-13] MEDS: MIRALAX 17 GRAMS PO (08:32)
[2024-10-13] MEDS: VITAMIN B1 100 MG PO (08:32)
[2024-10-13] MEDS: LOPRESSOR 12.5 MG PO ×2 (08:32→21:24)
[2024-10-13] MEDS: VITAMIN D3 (cholecalciferol) 125 MCG PO (08:32)
[2024-10-13] MEDS: PROTONIX 40 MG PO ×2 (08:32→21:24)
[2024-10-13] MEDS: FLOMAX 0.4 MG PO (08:32)
[2024-10-13] MEDS: FEOSOL 325 MG PO (08:32)
[2024-10-13] MEDS: LASIX 40 MG IV (08:34)
[2024-10-13] MEDS: LIDOCAINE 4% PATCH 1 PATCH TOPICAL (08:37)
[2024-10-13] MEDS: MYCOSTATIN OINTMENT 1 APPLIC TOPICAL ×2 (08:47→20:39)
[2024-10-13] MEDS: SANTYL OINTMENT 1 APPLIC TOPICAL (08:48)
--- NOTE | 2024-10-13 10:04 | W.PN.UPDATE ---
Update Note
Progress Note Update
Patient seen and examined after postmidnight admission. Currently denies shortness of breath and asking for nasal cannula oxygen to be removed. Vital signs stable. No acute distress, awake and alert, regarding rhythm, normal S1-S2. Clear
auscultation bilaterally. 2�3+ bilateral lower extremity edema. Appreciate cardiology. Continue IV Lasix, daily weights, I/Os. Continue rest of plan as outlined in the H&P done earlier today.
[2024-10-13 10:43] LABS: Free T4 1.17 ng/dl (0.78-2.19)
[2024-10-13 11:19] LABS: Glucose - Point of Care 195 mg/dl (70-99)
[2024-10-13 11:32] LABS: Folate > 20.0 ng/ml (2.76-20); Vitamin B12 253 pg/ml (239-931)
[2024-10-13] MEDS: NOVOLOG FLEXPEN-LOW RESISTANCE 1 UNITS SC (13:06)
--- NOTE | 2024-10-13 14:49 | CM ---
CM reviewed chart, spoke with Johanne, admissions at [facility], patient ambulating and transferring with assist with rolling walker, needs assistance with ADLS. Per nurse, patient forgetful, CM will call sister to conduct assessment. Phone call to
patients primary contact, doris Friendmail for return call. PT recommending return to [facility] when stable. CM will continue to follow for all discharge planning needs.
Plan; return to [facility] when stable
[2024-10-13 15:31] LABS: Glucose - Point of Care 182 mg/dl (70-99)
[2024-10-13] MEDS: LASIX 80 MG IV (16:12)
[2024-10-13] MEDS: LOVENOX 40 MG SC (17:40)
[2024-10-13] MEDS: LOPRESSOR PO (20:38)
[2024-10-13] MEDS: MIRALAX PO ×2 (20:39→20:47)
[2024-10-13] MEDS: PROTONIX PO (20:39)
[2024-10-13] MEDS: SENOKOT-S PO ×2 (20:39→20:47)
[2024-10-13] MEDS: CRESTOR PO (20:40)
[2024-10-13 21:18] LABS: Glucose - Point of Care 169 mg/dl (70-99)
[2024-10-13] MEDS: CRESTOR 10 MG PO (21:24)
[2024-10-14] MEDS: ULTRAM 50 MG PO ×2 (01:03→15:32)
[2024-10-14] MEDS: TYLENOL 650 MG PO ×2 (03:04→18:07)
[2024-10-14 03:14] VITALS: BP 132/54
--- NOTE | 2024-10-14 05:41 | PTCARENOTE ---
Pt ringing call [employer]iveros every few minutes and yelling out 'nurse!' throughout the night. After staff, including this RN, address the pt's needs and leave the room, pt will ring his call ontiveros again and yell for help. Pt told repeatedly that he should
make his needs known before the nurse leaves the room to go assist another patient. Pt replied 'everyone keeps bitching at me'. When this RN attempted to place a bed alarm under the patient for safety, the pt replied, 'if you put that thing under
me I'm going to rip it out of the wall'. SIMA iKm went into pt's room to empty pt's urinal. This entry writer walked into the room and heard pt say to SIMA Kim 'what if I throw you out the fucking window'. Pt told by this RN and SIMA Kim that pt is being
inappropriate and he cannot talk to staff in this way. Pt continues to ring call [employer]iver[employer] and yell for help after he has already had all of his needs met.
[2024-10-14 06:00] VITALS: BMI 36.2
--- NOTE | 2024-10-14 06:02 | PTCARENOTE ---
Pt refused to have weight taken in his bed and asked to use the standing scale. When pt stood up and got on the scale without the scale being zeroed, pt told by this RN he needed to step off the scale and let this RN zero the scale first. Pt
stepped off the scale and then refused to step back on and instead got back into bed. Pt educated by this RN on the importance of recording an accurate weight to determine how well the IV Lasix is working and if he is closer to his dry weight. Pt
is still refusing to be weighed at this time.
[2024-10-14] MEDS: SYNTHROID 112 MCG PO (06:15)
--- NOTE | 2024-10-14 06:38 | PTCARENOTE ---
Pt is now agreeable to getting weighed; his weight on the standing scale is 252.3 lbs.
[2024-10-14 07:00] VITALS: BP 156/120
--- NOTE | 2024-10-14 08:34 | PTCARENOTE ---
Received patient yelling out 'nurse nurse' . Upon entering breakfast tray was noted, eaten 100%. Was yelling that he wanted ' more goddamn food right now' Explained I would let the doctor know, he continued to yell and use profanity. Patient
refused meds, refused accucheck and refused echo this am. Pulled out his IV access, removed tele . Wound care in to see, refused to cooperate. Out of bed in chair at present . Call ontiveros in reach. Denies any c/o pain at present.
--- NOTE | 2024-10-14 08:35 | W.PN.HOSP.TC ---
Today's Communication/Plan
-
see bold
Assessment / Plan
Assessment / Plan
74 M with dementia brought to ED for lower extremity swelling. Found to be hypoxic in ED with infiltrates. Has elevated BNP, bilateral leg edema and vascular congestion. Suspect new diagnosis fo CHF. AFIB with intermittent long RR/pauses as long
as 3 seconds on metoprolol 12.5 bid. ECG otherwise unremarkable and troponin negative. Hgb is stable with negative rectal exam.
Gen: NAD, Awake and alert, NCAT
Eyes: EOMI, PERRLA, no scleral icterus.
Neck: supple.
CV: RRR, +S1/S2, no m/r/g.
Resp: rales in the bases
Abd: +BS, soft, NT, ND
Skin: No rashes. 3+ B/L LE edema
Neuro: CN 2-12 intact, non-focal.
Psych: tearful and agitated
CXR: Small right pleural effusion. Cardiomegaly.
Acute hypoxemic respiratory insufficiency due to acute CHF:
-proBNP 5060
-CXR above
-cont IV Lasix
-cont BB
-daily wts, I/Os
-note procal NEG, afebrile
-check echo
-cardiology following
-FR
-weaned to RA
Fe def anemia:
-recent diverticulitis with GI bleed, transfused and discharged at hgb of around 9.
-trend Hb
PAF:
-follow AM Hb prior to decision on restarting Eliquis as Hb is borderline
-cont BB
Other problems:
Obesity due to excess calories
DM2: check a1c, SSI/accuchecks
GERD: cont BB
Hypothyroidism: Continue Levoxyl, TSH noted but Levoxyl dose recently changed.
Chronic back pain: h/o chronic vertebral osteo s/p L3-L5 laminectomy and L4-5 fusion in Jul 2024. Biopsy negative for infection. Pain control, outpatient neurosurgery f/u.
Dementia with behavioral disturbances: Add ativan PRN as recommended by psych last admission
FULL/Lovenox
Total time spent on today's encounter was 50 minutes which included time spent in counseling the patient/family regarding diagnosis and treatment plan as listed above, goals of care, and symptom management. Case was discussed with nursing staff,
specialists, and care coordinators/case management. All labs and imaging personally reviewed by me. Remainder the time spent in detailed review of previous records, lab data, imaging, and other medical provider documentation.
Anticipated Discharge: 24 - 48 hours
Subjective/Interval History
-
Date of Service: October 14, 2024
Called to bedside for patient agitation. Patient is screaming that he just wants to eat. Tearful
Objective Data
-
Vital Signs:
Vital Signs
Temp Pulse Resp BP Pulse Ox
98.2 F 69 16 156/120 99
10/14/24 07:00 10/14/24 07:00 10/14/24 07:00 10/14/24 07:00 10/14/24 07:00
I&O
10/13/24 10/14/24 10/15/24
06:59 06:59 06:59
Intake Total 240 / 240 1480 / 1480
Output Total 325 / 325 5500 / 5500
Balance -85 / -85 -4020 / -4020
--- NOTE | 2024-10-14 08:47 | WOUNDNOTE ---
WO RN Note: Patient sitting in recliner chair. He is refusing this investment underwriter to look at his sacral/buttocks. Air chair cushion left in room. Patient has an air overlay mattress. SIMA Riley aware and notified Dr. Salcedo via tiger text. SIMA Riley to notify
this investment underwriter if patient changes his mind.
[2024-10-14] MEDS: NOVOLOG FLEXPEN-LOW RESISTANCE SC (09:56)
[2024-10-14] MEDS: LIDOCAINE 4% PATCH 1 PATCH TOPICAL (09:57)
[2024-10-14] MEDS: SANTYL OINTMENT TOPICAL (09:59)
[2024-10-14] MEDS: ULTRAM PO (10:00)
[2024-10-14] MEDS: MYCOSTATIN OINTMENT TOPICAL (10:01)
[2024-10-14] MEDS: FEOSOL PO (10:04)
[2024-10-14] MEDS: FLOMAX PO (10:04)
[2024-10-14] MEDS: PROTONIX PO (10:05)
[2024-10-14] MEDS: LASIX IV (10:05)
[2024-10-14] MEDS: MIRALAX PO (10:05)
[2024-10-14] MEDS: LOPRESSOR PO (10:05)
[2024-10-14] MEDS: VITAMIN D3 (cholecalciferol) PO (10:06)
[2024-10-14] MEDS: VITAMIN B1 PO (10:06)
[2024-10-14] MEDS: SENOKOT-S PO ×2 (10:06→19:55)
--- NOTE | 2024-10-14 10:07 | PTCARENOTE ---
Patient received a second breakfast tray, continued to refuse meds. Continued to complain he 'is being starved here ' Attempted to console but patient is emotionally labile , tearful at times with cursing at other times. Only med allowed was
lidocaine to his back.
[2024-10-14 11:08] LABS: Glucose - Point of Care 171 mg/dl (70-99)
--- NOTE | 2024-10-14 11:15 | WOUNDNOTE ---
[facility] RN note: Patient admitted with CHF exacerbation. Patient admitted from SNF rehab.
See H&P for complete history.
PMH: a fib, HTN, IDDM, BPH, vertebral osteomyelitis, s/p laminectomy, diverticulitis, GI bleed, anemia, heart failure, dementia, sacral pressure injury.
Wound Location and type/assessment: Patient admitted with: Unstageable sacral pressure injury with yellow slough and surrounding erythema. Moderate ss drainage. L heel small scabbed abrasion. L 5th and 2nd toe small dry scabbed abrasions. +1-2 LE
edema. L jones with small dry yellow abrasion. +Hemosiderosis. Pedal pulses heard via portable Doppler.
Appetite: very good.
Pressure redistribution devices in place: Waffle air overlay.
Plan: Air chair cushion given. Sacral dressing changed. Protective foam applied to L heel. SIMA Lemus in room and supervised patient while he stood for wound care. Discussed with SIMA Lemus. Instructed patient pressure injury prevention measures.
Updated and confirmed orders with Dr. Salcedo including knee high Tubigrip.
Updated care plan and will follow as needed.
Note to case management of equipment requested for discharge: Air mattress at SNF. Discussed with GODFREY Do.
Recommend follow up at wound care center upon discharge.
--- NOTE | 2024-10-14 11:21 | WOUNDNOTE ---
L 5TH TOE
[2024-10-14] MEDS: LASIX 80 MG IV ×2 (11:23→15:33)
[2024-10-14 11:27] LABS: Hematocrit 24.9 % (39.0-52.0); Mean Corp Hgb Conc. 32.1 g/dL (33.0-37.0); Mean Corpuscular Hgb 29.1 pg (27.0-31.0); Mean Corpuscular Volume 90.5 fL (80.0-94.0); Mean Platelet Volume 9.3 fL (7.4-10.4); Platelet Count 153 10^3/uL (130-400); Red Blood Cell Count 2.75 10^6/uL (4.70-6.10); Red Cell Dist. Width 16.3 % (11.5-14.5); White Blood Cell Count 4.9 10^3/uL (4.8-10.8)
[2024-10-14] MEDS: NOVOLOG FLEXPEN-LOW RESISTANCE 1 UNITS SC ×2 (11:29→16:23)
[2024-10-14 11:37] LABS: Blood Urea Nitrogen 36 mg/dl (9-20); Calcium 8.8 mg/dl (8.4-10.2); Carbon Dioxide 24 mmol/L (22-30); Chloride 103 mmol/L (98-107); Estimated Creatinine Clearance 60 ml/min; Glucose 169 mg/dl (70-99); Potassium 4.6 mmol/L (3.5-5.1); Sodium 139 mmol/L (135-145); eGFR 53.07
[2024-10-14 11:50] VITALS: BP 151/87
--- NOTE | 2024-10-14 11:50 | CS.PSYCHR ---
Consult Summary - Psychiatry
-
Psychiatry consult for agitation management. 74 yo male admitted from [facility] with lower extremity swelling. Per nursing patient has been refusing medications, pulled out IV and has been demanding food despite receiving a second breakfast tray
this morning. Patient states he is 'starving' and that he does not want to cooperative until he feels fed. He states he would like to leave the hospital but then says 'I know that's a risk because of my legs swelling.' He understands that if he does
leave AMA, he will likely need readmission and that his health condition could deteriorate further and even result in . He is oriented to person, place, year, president though sarcastically refers to here at [facility].
MSE- poor eye contact. irritable mood. congruent affect. goal directed. Denies SI/HI/AVH. oriented to person, place, year, president.
Past psych- denies mental health history; diagnosed with unspecified dementia with anxiety at last admission. responded to PRN Ativan
Social- was at [facility]. Previously lived alone. , 12 years ago. retired
past medical history-atrial fibrillation previously on anticoagulation, hypertension, diabetes, hyperlipidemia, BPH, a history of chronic vertebral osteomyelitis status post surgery, hypothyroidism, recent episode of diverticulitis with GI bleed,
chronic iron deficiency anemia, nonspecified heart failure
Family history- denies family mental health issues
74 yo male with with medical issues as noted above demonstrating periods of agitation and poor cooperation with medical treatment. There seems to be a personality component to some of his behaviors and some could be secondary to anxiety. Patient
does appear to have capacity to leave AMA at this time though this would likely result in readmission. Recommend offering support and encouragement. Will leave PO PRN ativan for anxiety as well as order IV form if needed for agitation/PO refusal.
--- NOTE | 2024-10-14 12:01 | PTCARENOTE ---
Patient did allow IV team to place new line, 80 mg IV lasix administered.
--- NOTE | 2024-10-14 12:07 | W.PN.CARDCBS ---
Addendum entered and electronically signed by Grant Ernst MD 10/14/24 16:55:
Patient agitated, pulled out IVs, telemetry, refused echo, meds, and now is more cooperative and conversant.
PMH: Acute HFpEF, EF unknown, paroxysmal A-fib, right bundle branch block, recent GI bleed with anemia, anticoagulation on hold.
Current meds, vitamin D3, iron, lidocaine patch, levothyroxine, nystatin, Protonix, MiraLAX, rosuvastatin 10 mg a day, Flomax 0.4 mg, thiamine, Senokot, enoxaparin, insulin, furosemide 80 IV twice daily, carvedilol 3.125 twice daily
144/83, pulse 74, respiratory to 18, afebrile, intake and output -4 L, weight is 114.4 kg, down 4.5 kg, more cooperative now, asks if he will be home by Arthur, head neck exam unremarkable, currently regular rate and rhythm with soft systolic
murmur, JVD not dramatically elevated, abdomen benign, still with anasarca, neuro grossly nonfocal
Hemoglobin 8, BUN and creatinine 36 and 1.4, stable since admit, potassium 4.6, troponin 0.023
Impression:
Acute HFpEF, EF unknown
Paroxysmal atrial fibrillation, in A-fib with slow RVR upon presentation with spontaneous conversion to normal rhythm
Recent lower GI bleed on Eliquis, with stool impaction and possible diverticulitis Eliquis currently on hold
Dementia
Hyperlipidemia
Hypertension
Type 2 diabetes
Chronic pain
Recent lumbar back surgery
Urinary retention
Hypothyroidism
Agitation
Plan:
Despite psych issues which are limiting our therapeutic attempts, he is diuresing aggressively and volume status looks improved though he still is significantly volume overloaded. Could easily be 20 pounds above dry weight, possibly more.
Will attempt to repeat echocardiogram on Thursday.
Continue IV furosemide at this time, based on clinical course consider other GDMT as indicated. Echo will be useful in guiding treatment options
Now on carvedilol in place of metoprolol.
Continue to hold anticoagulation -eventually hope to restart after GI evaluation.
Original Note:
Today's Communication / Plan
-
IV lasix
echo
psych eval
GDMT as able
follow rhythm on tele
follow hgb. off OAC
Impression / Plan
-
Impression:
Presentation with LE edema
Acute HFpEF, EF unknown
Paroxysmal atrial fibrillation
Recent lower GI bleed on Eliquis, with stool impaction and possible diverticulitis Eliquis currently on hold
Chronic RBBB
Hyperlipidemia
Hypertension
Type 2 diabetes
Chronic pain
Recent lumbar back surgery
Urinary retention
Hypothyroidism
ECHO 10/14/24: pending
Plan:
-I&O grossly negative overnight, -4 L and weight trending down, however remains with gross lower extremity edema to level of waist.
-This morning he was refusing blood work, pulled out his IV site, refused medications and echo. talked to patient and he is now agreeable to proceed with treatment
-Psychiatry to evaluate patient. baseline mental status unknown - there was a question of possible dementia? head CT negative for acute abnormality
-Continue IV Lasix 80 mg twice daily. Creatinine stable at 1.4
-transitioned lopressor to coreg for improved BP control. he has marked 1st degree av block. will follow
-will hold on patsy/arb/aldactone given RI and await echo results.
-initial trop 0.013. check repeat. EKG 10/13 afib with chronic RBBB.
-had PAF on admission. order placed to put patient on tele. OAC has been on hold due to recent GI Bleed. [id number] score of at least 4 for age, HTN, CHF, DM2
-hgb 8.0. work up per primary service, recent lower GI bleed. continue feosol.
-hgb A1c pending
-TSH 11.6 with compensated free T4
-d/w nursing, case management.
Progress Note - [employer]
Subjective
Date of Service: October 14, 2024
reports continue significant LE edema
Objective
Labs:
10/14/24 10:56
10/14/24 10:56
Labs
Hgb 8.0 g/dL (13.0-18.0) L 10/14/24 10:56
Hct 24.9 % (39.0-52.0) L 10/14/24 10:56
Plt Count 153 10^3/uL (130-400) 10/14/24 10:56
Sodium 139 mmol/L (135-145) 10/14/24 10:56
Potassium 4.6 mmol/L (3.5-5.1) 10/14/24 10:56
BUN 36 mg/dl (9-20) H 10/14/24 10:56
Creatinine 1.4 mg/dL (0.7-1.3) H 10/14/24 10:56
Glucose 169 mg/dl (70-99) H 10/14/24 10:56
Troponins
10/12/24
23:33
Troponin I 0.013
Vital Signs and I&O:
Vital Signs
Temp Pulse Resp BP Pulse Ox
98.2 F 69 16 156/120 99
10/14/24 07:00 10/14/24 07:00 10/14/24 07:00 10/14/24 07:00 10/14/24 07:00
Vital Signs
Temp Pulse Resp BP Pulse Ox
98.2 F 69 16 156/120 99
10/14/24 07:00 10/14/24 07:00 10/14/24 07:00 10/14/24 07:00 10/14/24 07:00
Intake & Output
10/12/24 10/13/24 10/14/24 10/15/24
07:59 07:59 07:59 07:59
Intake Total 240 / 240 1480 / 1480
Output Total 325 / 325 5500 / 5500
Balance -85 / -85 -4020 / -4020
Physical Exam
Physical Exam
GEN: No distress, awake, alert, oriented to self, place. agitated at times. sitting in chair
HEENT: supple, anicteric, mmm, eomi
LUNGS: CTA B/L, no wheezes/rales
CV: Reg, S1/S2, no murmur
ABD: soft, BS+, NT/ND
EXT: No cyanosis, clubbing. 4++ edema of B/L LE to level of thighs
NEURO: Gross non-focal
SKIN: Warm, pink, dry. No rash
[2024-10-14 13:08] LABS: Glycohemoglobin (HgbA1c) 6.5 % (4.0-5.6)
[2024-10-14 14:33] LABS: Troponin I 0.023 ng/ml
--- NOTE | 2024-10-14 14:38 | CM ---
Chart reviewed and case assembler spoke with patient and patient's sister this morning, patient's sister brought patient from facilities in [facility] to here in order to have patient closer to family, patient was admitted from [facility] and plan
is for patient to return [facility] when stable.
[facility]
Report [phone]
[2024-10-14 14:43] VITALS: BMI 36.2
[2024-10-14 15:26] VITALS: BP 144/83
[2024-10-14] MEDS: LOVENOX 40 MG SC (15:32)
[2024-10-14 16:23] LABS: Glucose - Point of Care 192 mg/dl (70-99)
--- NOTE | 2024-10-14 17:44 | PTCARENOTE ---
Patient allowed tubigrips to bilat legs, he did remove them himself at around 1745. He agreed to have them put back on in the morning.
[2024-10-14] MEDS: COREG 3.125 MG PO (19:55)
[2024-10-14] MEDS: MIRALAX 17 GRAMS PO (19:55)
[2024-10-14] MEDS: PROTONIX 40 MG PO (19:55)
[2024-10-14] MEDS: ATIVAN 0.5 MG PO (20:01)
[2024-10-14] MEDS: MYCOSTATIN OINTMENT 1 APPLIC TOPICAL (20:02)
[2024-10-14] MEDS: CRESTOR 10 MG PO (20:06)
[2024-10-14 21:24] LABS: Glucose - Point of Care 159 mg/dl (70-99)
[2024-10-15 00:07] VITALS: BP 145/68
[2024-10-15] MEDS: ULTRAM 50 MG PO ×2 (00:26→23:57)
[2024-10-15] MEDS: ATIVAN 0.5 MG PO (02:58)
[2024-10-15] MEDS: TYLENOL 650 MG PO (03:03)
[2024-10-15 06:00] VITALS: BMI 31.4
[2024-10-15] MEDS: SYNTHROID PO ×2 (06:37→06:39)
[2024-10-15 07:00] VITALS: BP 134/80
[2024-10-15 07:21] LABS: Glucose - Point of Care 134 mg/dl (70-99)
[2024-10-15 07:40] LABS: Hematocrit 23.4 % (39.0-52.0); Hemoglobin 7.6 g/dL (13.0-18.0); Mean Corp Hgb Conc. 32.5 g/dL (33.0-37.0); Mean Corpuscular Hgb 29.2 pg (27.0-31.0); Mean Platelet Volume 9.1 fL (7.4-10.4); Platelet Count 157 10^3/uL (130-400); White Blood Cell Count 5.3 10^3/uL (4.8-10.8)
--- NOTE | 2024-10-15 07:53 | PTCARENOTE ---
Current orders include telemetry, but patient without quality assurance monitor on or in room. Patient educated on telemetry order but refused for telemetry to be placed. Patient also on high fall risk protocol per previously assessed Blankenship fall risk score,
but patient also refuses bed and chair alarms. Will update physician on rounds.
[2024-10-15 08:19] LABS: Blood Urea Nitrogen 34 mg/dl (9-20); Calcium 8.5 mg/dl (8.4-10.2); Carbon Dioxide 28 mmol/L (22-30); Chloride 99 mmol/L (98-107); Estimated Creatinine Clearance 55 ml/min; Glucose 107 mg/dl (70-99); Potassium 4.1 mmol/L (3.5-5.1); Sodium 141 mmol/L (135-145); eGFR 53.07
[2024-10-15] MEDS: FLOMAX 0.4 MG PO (08:24)
[2024-10-15] MEDS: NOVOLOG FLEXPEN-LOW RESISTANCE SC ×3 (08:25→16:45)
[2024-10-15] MEDS: MIRALAX PO (08:26)
[2024-10-15] MEDS: LIDOCAINE 4% PATCH TOPICAL (08:26)
[2024-10-15] MEDS: MYCOSTATIN OINTMENT 1 APPLIC TOPICAL ×2 (08:26→19:54)
[2024-10-15] MEDS: LASIX 80 MG IV (08:27)
[2024-10-15] MEDS: SANTYL OINTMENT 1 APPLIC TOPICAL (08:28)
[2024-10-15] MEDS: SENOKOT-S PO (08:28)
[2024-10-15] MEDS: VITAMIN D3 (cholecalciferol) PO (08:28)
[2024-10-15] MEDS: PROTONIX PO (08:28)
[2024-10-15] MEDS: VITAMIN B1 PO (08:28)
[2024-10-15] MEDS: FLUSH (NSS) 1 FLUSH IV (08:29)
--- NOTE | 2024-10-15 09:39 | W.PN.HOSP.TC ---
Today's Communication/Plan
-
see bold
Assessment / Plan
Assessment / Plan
74 M with dementia brought to ED for lower extremity swelling. Found to be hypoxic in ED with infiltrates. Has elevated BNP, bilateral leg edema and vascular congestion. Suspect new diagnosis fo CHF. AFIB with intermittent long RR/pauses as long
as 3 seconds on metoprolol 12.5 bid. ECG otherwise unremarkable and troponin negative. Hgb is stable with negative rectal exam.
Gen: NAD, Awake and alert, NCAT
Eyes: EOMI, PERRLA, no scleral icterus.
Neck: supple.
CV: irreg/irreg, +S1/S2, no m/r/g.
Resp: CTAB anteriorly
Abd: +BS, soft, NT, ND
Skin: No rashes. remains 3+ B/L LE edema
Neuro: CN 2-12 intact, non-focal.
Psych: tearful and agitated
CXR: Small right pleural effusion. Cardiomegaly.
Acute hypoxemic respiratory insufficiency due to acute CHF:
-proBNP 5060
-CXR above
-cont IV Lasix
-cont BB
-daily wts, I/Os
-note procal NEG, afebrile
-check echo
-cardiology following
-FR
-weaned to RA
Fe def anemia:
-recent diverticulitis with GI bleed, transfused and discharged at hgb of around 9.
-Hb stable, trend
PAF:
-Hb borderline at 7.6
-holding Eliquis, as per cards, until further GI evaluation as outpt
-cont BB
Other problems:
Obesity due to excess calories
DM2: a1c 6.5%, SSI/accuchecks
GERD: cont BB
Hypothyroidism: Continue Levoxyl, TSH noted but Levoxyl dose recently changed.
Chronic back pain: h/o chronic vertebral osteo s/p L3-L5 laminectomy and L4-5 fusion in Jul 2024. Biopsy negative for infection. Pain control, outpatient neurosurgery f/u.
Dementia with behavioral disturbances: Zaida ALMAZANN, psych following. Today the patient states he is leaving AGAINST MEDICAL ADVICE. Despite being alert and oriented x 3 his reason for leaving is 'I do not belong here. I prolong up there.'
Currently, in my opinion, the patient does not have decision-making capacity.
FULL/Lovenox
Total time spent on today's encounter was 50 minutes which included time spent in counseling the patient/family regarding diagnosis and treatment plan as listed above, goals of care, and symptom management. Case was discussed with nursing staff,
specialists, and care coordinators/case management. All labs and imaging personally reviewed by me. Remainder the time spent in detailed review of previous records, lab data, imaging, and other medical provider documentation.
Anticipated Discharge: > 48 hours
Subjective/Interval History
-
Date of Service: October 15, 2024
Patient states that he is leaving AGAINST MEDICAL ADVICE.
Objective Data
-
Labs:
Laboratory Results
10/15/24
07:16
WBC 5.3
Hgb 7.6 L
Hct 23.4 L
Plt Count 157
Sodium 141
Potassium 4.1
Chloride 99
Carbon Dioxide 28
BUN 34 H
Creatinine 1.4 H
Glucose 107 H
Calcium 8.5
Vital Signs:
Vital Signs
Temp Pulse Resp BP Pulse Ox
97.5 F 74 18 134/80 97
10/15/24 07:00 10/15/24 07:00 10/15/24 07:00 10/15/24 07:00 10/15/24 07:00
I&O
10/14/24 10/15/24 10/16/24
06:59 06:59 06:59
Intake Total 1480 / 1480
Output Total 5500 / 5500 1900 / 1900
Balance -4020 / -4020 -1899 -1899
--- NOTE | 2024-10-15 09:47 | CM ---
Spoke with patient in his room
Stated he will sign out AMA-signed form
CM offered to place alternative SNF referrals in [facility] - patient refusing
Psych saw patient - Patient does appear to have capacity to leave AMA at this time though this would likely result in readmission.
Wants to return to [facility].
Discussed with patient safety concerns
CM called his sister Ronna who states none of his sisters can take him to their home.
Sister states will discuss going to SNF. with son [phone]
PLAN: refusing alternative SNF at present, sister to speak with him
--- NOTE | 2024-10-15 11:48 | W.PN.UPDATE ---
Update Note
Progress Note Update
patient seen chart reviewed. discussed w tonja. the patient apparently has been demanding to leave ama. he has the unrealistic plan to hire a taxi to take him to [facility]. no matter that he does not have the money to hire a taxi. 'i can go to
the bank' he has no means of getting money from the bank on a thursday and he told cm that he had no money. he is angry that he was brought to [place] by his sister and wants to be back home in [facility]. after much discussion he agrees to remain
here over the weekend as plans for his safe disposition are arranged. i do NOT feel he is competent at this point to leave AMA in any case. he does not have a realistic view of his current situation and would doubtless be at risk for harm if he
were to leave. at one point told me 'just get me a wheelchair so i can get out of this place.' agree with prashant kenyon. do not see an active psychosis here but clearly an element of cognitive decline here in a person who might have struggled
beforehand to manage his life. .
[2024-10-15 12:31] LABS: Glucose - Point of Care 120 mg/dl (70-99)
[2024-10-15] MEDS: COREG 3.125 MG PO ×2 (14:26→19:51)
[2024-10-15] MEDS: FEOSOL 325 MG PO (14:27)
--- NOTE | 2024-10-15 14:31 | PTCARENOTE ---
Patient yelling that he wants to go home and demanding to have left arm IV access removed. Patient educated on plan of care and medications. Patient refuses education, pulled out left arm IV access and verbalizes that he has someone coming to pick
him up tomorrow morning. Gauze dressing applied to left arm. Patient continuing to yell that he is leaving and demanding a wheelchair. Patient left in chair in room 432 with call ontiveros in reach.
[2024-10-15] MEDS: ATIVAN PO (14:40)
--- NOTE | 2024-10-15 15:39 | W.PN.CARDCBS ---
Today's Communication / Plan
-
IV diuresis and continue efforts towards goal-directed medical therapy
Another attempt to obtain 2D echocardiogram Thursday
Impression / Plan
-
Impression:
Presentation with LE edema
Acute HFpEF, EF unknown
Paroxysmal atrial fibrillation
Recent lower GI bleed on Eliquis, with stool impaction and possible diverticulitis Eliquis currently on hold
Chronic RBBB
Hyperlipidemia
Hypertension
Type 2 diabetes
Chronic pain
Recent lumbar back surgery
Urinary retention
Hypothyroidism
ECHO 10/14/24: pending
Plan:
Presentation with acute heart failure, unknown ejection fraction
-He had previously refused echocardiogram in addition to medications and had threatened earlier today to leave AMA
-Despite this he is diuresing with IV Lasix when we are able to provide
-Will attempt to repeat echocardiogram on Thursday
-Will attempt to optimize goal-directed medical therapy: Lasix, carvedilol, rosuvastatin. Hopefully can add SGLT2 inhibitor prior to discharge. If LV dysfunction found on echocardiogram would add IMAN inhibitor
-Consider outpatient ischemic evaluation.
-Patient will need outpatient cardiac follow-up closer to his home
Mental health issues refusing medications/medical studies and threatening to leave AMA
-Appreciate psychiatry input
-CT head negative for acute abnormality
Paroxysmal atrial fibrillation first noted on EKG 10/05/2024 with chronic right bundle branch block
-Given anemia and recent lower GI bleed we will hold off anticoagulation
Renal insufficiency�monitor with diuresis
-Hypothyroidism TSH 11.6 with compensated free T4: Management per primary
Progress Note - Director Of Therapy Services
Subjective
Date of Service: October 15, 2024
Patient seen and examined. He is sitting out of bed to chair and telling me he is going home today. Chart/telemetry reviewed
Objective
Labs:
10/15/24 07:16
10/15/24 07:16
Labs
Hgb 7.6 g/dL (13.0-18.0) L 10/15/24 07:16
Hct 23.4 % (39.0-52.0) L 10/15/24 07:16
Plt Count 157 10^3/uL (130-400) 10/15/24 07:16
Sodium 141 mmol/L (135-145) 10/15/24 07:16
Potassium 4.1 mmol/L (3.5-5.1) 10/15/24 07:16
BUN 34 mg/dl (9-20) H 10/15/24 07:16
Creatinine 1.4 mg/dL (0.7-1.3) H 10/15/24 07:16
Glucose 107 mg/dl (70-99) H 10/15/24 07:16
Troponins
10/12/24 10/14/24
23:33 13:58
Troponin I 0.013 0.023
Vital Signs and I&O:
Vital Signs
Temp Pulse Resp BP Pulse Ox
97.5 F 74 18 134/80 97
10/15/24 07:00 10/15/24 07:00 10/15/24 07:00 10/15/24 07:00 10/15/24 07:00
Vital Signs
Temp Pulse Resp BP Pulse Ox
97.5 F 74 18 134/80 97
10/15/24 07:00 10/15/24 07:00 10/15/24 07:00 10/15/24 07:00 10/15/24 07:00
Intake & Output
10/13/24 10/14/24 10/15/24 10/16/24
06:59 06:59 06:59 06:59
Intake Total 240 / 240 1480 / 1480
Output Total 325 / 325 5500 / 5500 1900 / 1900 300 / 300
Balance -85 / -85 -4020 / -4020 -1900 / -1900 -300 / -300
Physical Exam
Physical Exam
GEN: No distress, awake, alert, oriented to self, place. agitated at times. sitting in chair
HEENT: mmm
LUNGS: CTA B/L, no wheezes/rales
CV: Reg, S1/S2, no murmur
ABD: soft, BS+, NT/ND
EXT: +++ edema of B/L LE to level of thighs
[2024-10-15] MEDS: LASIX IV (16:44)
[2024-10-15] MEDS: LOVENOX SC (18:47)
[2024-10-15 19:50] VITALS: BP 165/86
[2024-10-15] MEDS: MIRALAX 17 GRAMS PO (19:52)
[2024-10-15] MEDS: SENOKOT-S 1 TABLET PO (19:52)
[2024-10-15] MEDS: PROTONIX 40 MG PO (19:52)
[2024-10-15 20:46] LABS: Glucose - Point of Care 171 mg/dl (70-99)
[2024-10-15] MEDS: CRESTOR 10 MG PO (21:19)
[2024-10-15 23:30] VITALS: BP 155/81
[2024-10-16] MEDS: TYLENOL 650 MG PO ×2 (03:59→19:50)
[2024-10-16 06:00] VITALS: BMI 31.8
[2024-10-16] MEDS: ULTRAM 50 MG PO ×2 (06:31→19:49)
[2024-10-16] MEDS: SYNTHROID 112 MCG PO (06:31)
[2024-10-16 06:58] LABS: Glucose - Point of Care 118 mg/dl (70-99)
[2024-10-16 07:54] LABS: Hematocrit 22.9 % (39.0-52.0); Hemoglobin 7.8 g/dL (13.0-18.0); Mean Corp Hgb Conc. 34.1 g/dL (33.0-37.0); Mean Corpuscular Hgb 30.5 pg (27.0-31.0); Mean Corpuscular Volume 89.5 fL (80.0-94.0); Mean Platelet Volume 9.2 fL (7.4-10.4); Platelet Count 151 10^3/uL (130-400); Red Blood Cell Count 2.56 10^6/uL (4.70-6.10); Red Cell Dist. Width 15.5 % (11.5-14.5); White Blood Cell Count 5.5 10^3/uL (4.8-10.8)
[2024-10-16 08:00] VITALS: BP 152/76
[2024-10-16 08:40] LABS: Chloride 99 mmol/L (98-107); Potassium 4.2 mmol/L (3.5-5.1); Sodium 137 mmol/L (135-145)
[2024-10-16 08:49] LABS: Blood Urea Nitrogen 31 mg/dl (9-20); Calcium 8.4 mg/dl (8.4-10.2); Carbon Dioxide 28 mmol/L (22-30); Estimated Creatinine Clearance 56 ml/min; Glucose 105 mg/dl (70-99); eGFR 53.07
[2024-10-16] MEDS: NOVOLOG FLEXPEN-LOW RESISTANCE SC (09:00)
[2024-10-16] MEDS: COREG 3.125 MG PO ×2 (09:02→19:51)
[2024-10-16] MEDS: FEOSOL 325 MG PO (09:04)
[2024-10-16] MEDS: SENOKOT-S 1 TABLET PO (09:04)
[2024-10-16] MEDS: VITAMIN B1 100 MG PO (09:04)
[2024-10-16] MEDS: FLOMAX 0.4 MG PO (09:04)
[2024-10-16] MEDS: PROTONIX 40 MG PO ×2 (09:04→19:51)
[2024-10-16] MEDS: VITAMIN D3 (cholecalciferol) 125 MCG PO (09:04)
[2024-10-16] MEDS: LASIX 80 MG IV ×2 (09:07→16:01)
[2024-10-16] MEDS: LIDOCAINE 4% PATCH 1 PATCH TOPICAL (09:12)
[2024-10-16] MEDS: MIRALAX PO ×2 (09:12→21:56)
[2024-10-16] MEDS: MYCOSTATIN OINTMENT 1 APPLIC TOPICAL ×2 (09:14→20:13)
[2024-10-16] MEDS: SANTYL OINTMENT 1 APPLIC TOPICAL (09:17)
--- NOTE | 2024-10-16 10:42 | W.PN.HOSP.TC ---
Today's Communication/Plan
-
see bold
Assessment / Plan
Assessment / Plan
74 M with dementia brought to ED for lower extremity swelling. Found to be hypoxic in ED with infiltrates. Has elevated BNP, bilateral leg edema and vascular congestion. Suspect new diagnosis fo CHF. AFIB with intermittent long RR/pauses as long
as 3 seconds on metoprolol 12.5 bid. ECG otherwise unremarkable and troponin negative. Hgb is stable with negative rectal exam.
Gen: NAD, Awake and alert, NCAT
Eyes: EOMI, PERRLA, no scleral icterus.
Neck: supple.
CV: RRR, +S1/S2, no m/r/g.
Resp: CTAB anteriorly
Abd: +BS, soft, NT, ND
Skin: No rashes. continues to remain 3+ B/L LE edema
Neuro: CN 2-12 intact, non-focal.
Psych: tearful and agitated
CXR: Small right pleural effusion. Cardiomegaly.
Acute hypoxemic respiratory insufficiency due to acute CHF:
-proBNP 5060
-CXR above
-cont IV Lasix (noting pt has been refusing some doses, has pulled IVs)
-cont BB
-daily wts, I/Os
-note procal NEG, afebrile
-check echo (hopefully this gets done 10/17/24)
-cardiology following, discussed with Dr. Mccall
-FR
-weaned to RA
Fe def anemia:
-recent diverticulitis with GI bleed, transfused and discharged at hgb of around 9.
-Hb stable, trend
PAF:
-Hb borderline but stable
-holding Eliquis, as per cards, until further GI evaluation as outpt
-cont BB
Other problems:
Obesity due to excess calories
DM2: a1c 6.5%, SSI/accuchecks. Note, will liberalized diet simply to assist with medication compliance. Change to regular diet with FR. Will monitor daily cumulative insulin dosing and adjust accordingly.
GERD: cont BB
Hypothyroidism: Continue Levoxyl, TSH noted but Levoxyl dose recently changed.
Chronic back pain: h/o chronic vertebral osteo s/p L3-L5 laminectomy and L4-5 fusion in Jul 2024. Biopsy negative for infection. Pain control, outpatient neurosurgery f/u.
Dementia with behavioral disturbances: Ativan PRN, psych following. The patient does not have decision-making capacity.
FULL/Lovenox
Anticipated Discharge: > 48 hours
Subjective/Interval History
-
Date of Service: October 16, 2024
No new complaints. Currently denies shortness of breath.
Objective Data
-
Labs:
Laboratory Results
10/16/24
06:44
WBC 5.5
Hgb 7.8 L
Hct 22.9 L
Plt Count 151
Sodium 137
Potassium 4.2
Chloride 99
Carbon Dioxide 28
BUN 31 H
Creatinine 1.4 H
Glucose 105 H
Calcium 8.4
Vital Signs:
Vital Signs
Temp Pulse Resp BP Pulse Ox
97.5 F 78 18 152/76 99
10/16/24 08:00 10/16/24 09:02 10/16/24 08:00 10/16/24 09:02 10/16/24 08:00
I&O
10/15/24 10/16/24 10/17/24
06:59 06:59 06:59
Intake Total 1080 / 1080
Output Total 190 / 1900 2950 / 2950
Balance -1900 / -1900 -0 / -1870
[2024-10-16 11:36] LABS: Glucose - Point of Care 150 mg/dl (70-99)
--- NOTE | 2024-10-16 11:38 | W.PN.UPDATE ---
Update Note
Progress Note Update
patient seen chart reviewed. spoke with nursing dr perry and cm. the patient is doing better today. nursing reports he has been more cooperative. he still wants to go 'home' to [place] as soon as possible. he hopes it will be tomorrow. he points
out to me that his legs are still swollen. asked nursing to get him a stool to elevate legs or reposition his bedside chair so legs are elevated. he has used prn ativan once daily for the past two days. he was watching football when i came into the
room and told me he was going to watch the eagles later today as he is a big eagles fan. psych will check in with him tomorrow.
[2024-10-16] MEDS: NOVOLOG FLEXPEN-LOW RESISTANCE 1 UNITS SC ×2 (12:41→16:09)
[2024-10-16] MEDS: ZAROXOLYN 2.5 MG PO (15:54)
[2024-10-16 15:58] VITALS: BP 159/76
[2024-10-16 16:04] LABS: Glucose - Point of Care 186 mg/dl (70-99)
[2024-10-16] MEDS: LOVENOX 40 MG SC (16:12)
--- NOTE | 2024-10-16 17:13 | W.PN.CARDCBS ---
Today's Communication / Plan
-
Continue efforts towards diuresis and optimization of volume status
Impression / Plan
-
Impression:
Presentation with LE edema
Acute HFpEF, EF unknown
Paroxysmal atrial fibrillation
Recent lower GI bleed on Eliquis, with stool impaction and possible diverticulitis Eliquis currently on hold
Chronic RBBB
Hyperlipidemia
Hypertension
Type 2 diabetes
Chronic pain
Recent lumbar back surgery
Urinary retention
Hypothyroidism
ECHO 10/14/24: pending
Plan:
Presentation with acute heart failure, unknown ejection fraction
-He had previously refused echocardiogram in addition to medications and had threatened earlier today to leave AMA
-Despite this he is diuresing with IV Lasix when we are able to provide. Hospital team made a compromise for regular diet if you would take Lasix.Will give a dose of Zaroxolyn before evening Lasix.
-Will attempt to repeat echocardiogram on Thursday
-Will attempt to optimize goal-directed medical therapy: Lasix, carvedilol, rosuvastatin. Hopefully can add SGLT2 inhibitor prior to discharge. If LV dysfunction found on echocardiogram would add IMAN inhibitor
-Consider outpatient ischemic evaluation.
-Patient will need outpatient cardiac follow-up closer to his home In [place]
Mental health issues refusing medications/medical studies and threatening to leave AMA
-Appreciate psychiatry input
-CT head negative for acute abnormality
Paroxysmal atrial fibrillation first noted on EKG 10/05/2024 with chronic right bundle branch block
-Given anemia and recent lower GI bleed we will hold off anticoagulation
Renal insufficiency�monitor with diuresis
-Hypothyroidism TSH 11.6 with compensated free T4: Management per primary
Progress Note - Practice Administrator
Subjective
Date of Service: October 16, 2024
Seen and examined. Patient sitting out of bed to chair and cooperative. Anxious to go home but denies any symptoms.
Objective
Labs:
10/16/24 06:44
10/16/24 06:44
Labs
Hgb 7.8 g/dL (13.0-18.0) L 10/16/24 06:44
Hct 22.9 % (39.0-52.0) L 10/16/24 06:44
Plt Count 151 10^3/uL (130-400) 10/16/24 06:44
Sodium 137 mmol/L (135-145) 10/16/24 06:44
Potassium 4.2 mmol/L (3.5-5.1) 10/16/24 06:44
BUN 31 mg/dl (9-20) H 10/16/24 06:44
Creatinine 1.4 mg/dL (0.7-1.3) H 10/16/24 06:44
Glucose 105 mg/dl (70-99) H 10/16/24 06:44
Troponins
10/14/24
13:58
Troponin I 0.023
Vital Signs and I&O:
Vital Signs
Temp Pulse Resp BP Pulse Ox
97.9 F 76 18 159/76 94
10/16/24 15:58 10/16/24 16:01 10/16/24 15:58 10/16/24 16:01 10/16/24 15:58
Vital Signs
Temp Pulse Resp BP Pulse Ox
97.9 F 76 18 159/76 94
10/16/24 15:58 10/16/24 16:01 10/16/24 15:58 10/16/24 16:01 10/16/24 15:58
Intake & Output
10/14/24 10/15/24 10/16/24 10/17/24
06:59 06:59 06:59 06:59
Intake Total 1480 / 1480 1080 / 1080
Output Total 5500 / 5500 1900 / 1900 2950 / 2950
Balance -4020 / -4020 -1900 / -1900 -1870 / -1870
Physical Exam
Physical Exam
GEN: No distress
HEENT: mmm
LUNGS: CTA B/L, no wheezes/rales
CV: Reg, S1/S2, no murmur
ABD: soft, BS+, NT/ND
EXT: +++ edema of B/L LE to level of thighs
[2024-10-16 21:24] LABS: Glucose - Point of Care 168 mg/dl (70-99)
[2024-10-16] MEDS: SENOKOT-S PO (21:56)
[2024-10-16] MEDS: CRESTOR 10 MG PO (22:09)
[2024-10-16 23:00] VITALS: BP 108/65
[2024-10-17] MEDS: TYLENOL 650 MG PO (01:33)
[2024-10-17] MEDS: ULTRAM 50 MG PO ×2 (01:53→23:02)
[2024-10-17] MEDS: BenGay-Like 1 APPLIC TOPICAL ×2 (01:54→23:03)
[2024-10-17] MEDS: DURAGESIC 25 MCG/HR PATCH 1 PATCH TRANSDERM (02:32)
[2024-10-17] MEDS: DILAUDID 0.25 MG IV (02:34)
[2024-10-17] MEDS: SYNTHROID 112 MCG PO (05:22)
[2024-10-17 06:00] VITALS: BMI 29.6
[2024-10-17 07:00] VITALS: BP 115/53
[2024-10-17 08:38] LABS: Glucose - Point of Care 217 mg/dl (70-99)
--- NOTE | 2024-10-17 08:55 | W.PN.HOSP.TC ---
Today's Communication/Plan
-
IV Lasix. Echocardiogram.
Assessment / Plan
Assessment / Plan
74 M with dementia brought to ED for lower extremity swelling. Found to be hypoxic in ED with infiltrates. Has elevated BNP, bilateral leg edema and vascular congestion. Suspect new diagnosis fo CHF. AFIB with intermittent long RR/pauses as long
as 3 seconds on metoprolol 12.5 bid. ECG otherwise unremarkable and troponin negative. Hgb is stable with negative rectal exam.
Gen: NAD, Awake and alert, NCAT
Eyes: EOMI, PERRLA, no scleral icterus.
Neck: supple.
CV: RRR, +S1/S2, no m/r/g.
Resp: CTAB anteriorly
Abd: +BS, soft, NT, ND
Skin: No rashes. continues to remain 3+ B/L LE edema
Neuro: CN 2-12 intact, non-focal.
Psych: Calm this morning
CXR: Small right pleural effusion. Cardiomegaly.
Acute hypoxemic respiratory insufficiency due to acute CHF:
-proBNP 5060
-CXR above
-cont IV Lasix (noting pt has been refusing some doses, has pulled IVs--> agreeing to Tx for now)
-cont BB
-daily wts, I/Os
-note procal NEG, afebrile
-cardiology following
-FR
-weaned to RA
-Plan for echocardiogram today
Fe def anemia:
-recent diverticulitis with GI bleed, transfused and discharged at hgb of around 9.
-Hb stable, trend
PAF:
-Hb borderline but stable
-holding Eliquis, as per cards, until further GI evaluation as outpt
-cont BB
Other problems:
Obesity due to excess calories
DM2: a1c 6.5%, SSI/accuchecks. Note, will liberalized diet simply to assist with medication compliance. Change to regular diet with FR. Will monitor daily cumulative insulin dosing and adjust accordingly.
GERD: cont BB
Hypothyroidism: Continue Levoxyl, TSH noted but Levoxyl dose recently changed.
Chronic back pain: h/o chronic vertebral osteo s/p L3-L5 laminectomy and L4-5 fusion in Jul 2024. Biopsy negative for infection. Pain control, outpatient neurosurgery f/u.
Dementia with behavioral disturbances: Ativan PRN, psych following. Psych to follow-up with him today as per last note.
FULL/Lovenox
Total time spent on today's encounter was 52 minutes which included time spent in counseling the patient/family regarding diagnosis and treatment plan as listed above, goals of care, and symptom management. Case was discussed with nursing staff,
specialists, and care coordinators/case management. All labs and imaging personally reviewed by me. Remainder the time spent in detailed review of previous records, lab data, imaging, and other medical provider documentation.
Anticipated Discharge: 24 - 48 hours
Subjective/Interval History
-
Date of Service: October 17, 2024
Less shortness of breath but still peripheral edema. No chest pain.
Objective Data
-
Labs:
Laboratory Results
10/17/24
08:12
WBC Pending
Hgb Pending
Hct Pending
Plt Count Pending
Sodium Pending
Potassium Pending
Chloride Pending
Carbon Dioxide Pending
BUN Pending
Creatinine Pending
Glucose Pending
Calcium Pending
Vital Signs:
Vital Signs
Temp Pulse Resp BP Pulse Ox
98 F 85 20 108/65 98
10/16/24 23:00 10/16/24 23:00 10/16/24 23:00 10/16/24 23:00 10/16/24 23:00
I&O
10/16/24 10/17/24 10/18/24
06:59 06:59 06:59
Intake Total 1080 / 5210 2920 / 2920
Output Total 2950 / 2950 5100 / 5100
Balance -1870 / -1869 -2179 / -2179
[2024-10-17 09:14] LABS: Hematocrit 24.8 % (39.0-52.0); Hemoglobin 7.8 g/dL (13.0-18.0); Mean Corp Hgb Conc. 31.5 g/dL (33.0-37.0); Mean Corpuscular Hgb 29.8 pg (27.0-31.0); Mean Corpuscular Volume 94.7 fL (80.0-94.0); Mean Platelet Volume 9.4 fL (7.4-10.4); Platelet Count 158 10^3/uL (130-400); Red Blood Cell Count 2.62 10^6/uL (4.70-6.10); Red Cell Dist. Width 16.1 % (11.5-14.5); White Blood Cell Count 5.5 10^3/uL (4.8-10.8)
[2024-10-17] MEDS: NOVOLOG FLEXPEN-LOW RESISTANCE 2 UNITS SC (09:26)
[2024-10-17] MEDS: COREG 3.125 MG PO ×2 (09:27→20:49)
[2024-10-17] MEDS: VITAMIN D3 (cholecalciferol) 125 MCG PO (09:28)
[2024-10-17] MEDS: FEOSOL 325 MG PO (09:28)
[2024-10-17] MEDS: PROTONIX 40 MG PO ×2 (09:28→20:50)
[2024-10-17] MEDS: FLOMAX 0.4 MG PO (09:28)
[2024-10-17] MEDS: SANTYL OINTMENT 1 APPLIC TOPICAL (09:29)
[2024-10-17] MEDS: MIRALAX PO (09:29)
[2024-10-17] MEDS: SENOKOT-S PO (09:29)
[2024-10-17] MEDS: VITAMIN B1 100 MG PO (09:29)
[2024-10-17] MEDS: LIDOCAINE 4% PATCH 1 PATCH TOPICAL (09:29)
[2024-10-17] MEDS: LASIX 80 MG IV ×2 (09:30→17:08)
[2024-10-17] MEDS: MYCOSTATIN OINTMENT 1 APPLIC TOPICAL ×2 (09:32→20:49)
[2024-10-17 09:38] LABS: Blood Urea Nitrogen 35 mg/dl (9-20); Calcium 8.4 mg/dl (8.4-10.2); Carbon Dioxide 31 mmol/L (22-30); Chloride 96 mmol/L (98-107); Estimated Creatinine Clearance 45 ml/min; Glucose 163 mg/dl (70-99); Potassium 4.3 mmol/L (3.5-5.1); Sodium 140 mmol/L (135-145); eGFR 48.85
--- NOTE | 2024-10-17 10:38 | CM ---
rn case manager hospice continues to follow with patient progress, adult protective caseworker spoke with patient's sister and Bing in admissions at [facility] this morning. Per patient's sister patient was placed in a half-way because he was unable to take care of
himself. Patient has stated repeatedly that he wanted to go home and [facility] are working with patient to get him home. Patient's sister and facility have changed his insurance to Medicare to provide patient with more options. Patient still
wants to return to home.
Plan; Await updated recommendation from psychiatry.
--- NOTE | 2024-10-17 11:45 | W.PN.CARDCBS ---
Today's Communication / Plan
-
Cont diuresis with lasix and Zaroxlyn
Check echo
Impression / Plan
-
.
Impression:
Presentation with LE edema
Acute HFpEF, EF unknown
Paroxysmal atrial fibrillation
Recent lower GI bleed on Eliquis, with stool impaction and possible diverticulitis Eliquis currently on hold
Chronic RBBB
Hyperlipidemia
Hypertension
Type 2 diabetes
Chronic pain
Recent lumbar back surgery
Urinary retention
Hypothyroidism
Plan:
Presentation with acute heart failure, unknown ejection fraction
He is now more compliant. Psych input appreciated
-He had previously refused echocardiogram in addition to medications and had threatened to leave AMA
Cont IV diuresis. He is over 2L negative last 24 hrs with Zaroxolyn. Will give again Dec 2.
-Hospital team made a compromise for regular diet if he would take Lasix.
Will attempt to check echocardiogram Dec 2 as he previously refused. He is now agreeable as he wants to be discharged as soon as possible.
Cont to optimize GDMT: Lasix, Carvedilol, rosuvastatin.
-Hopefully can add SGLT2 inhibitor prior to discharge.
-If LV dysfunction found on echocardiogram would add IMAN inhibitor
Consider outpatient ischemic evaluation.
-Patient will need outpatient cardiac follow-up closer to his home In [place]
Paroxysmal atrial fibrillation first noted on EKG 10/05/2024 with chronic right bundle branch block
-Given anemia and recent lower GI bleed, anticoagulation was not currently resumed given elevated bleeding risk.
Hypothyroidism TSH 11.6 with compensated free T4: Management per primary
Discussed with nursing
Progress Note - Early Childhood Education Worker
Subjective
Date of Service: October 17, 2024
Pt seen and examined. No complaints. No chest pain or shortness of breath.
Objective
Labs:
10/17/24 08:12
10/17/24 08:12
Labs
Hgb 7.8 g/dL (13.0-18.0) L 10/17/24 08:12
Hct 24.8 % (39.0-52.0) L 10/17/24 08:12
Plt Count 158 10^3/uL (130-400) 10/17/24 08:12
Sodium 140 mmol/L (135-145) 10/17/24 08:12
Potassium 4.3 mmol/L (3.5-5.1) 10/17/24 08:12
BUN 35 mg/dl (9-20) H 10/17/24 08:12
Creatinine 1.5 mg/dL (0.7-1.3) H 10/17/24 08:12
Glucose 163 mg/dl (70-99) H 10/17/24 08:12
Troponins
10/14/24
13:58
Troponin I 0.023
Vital Signs and I&O:
Vital Signs
Temp Pulse Resp BP Pulse Ox
97.8 F 70 20 115/53 99
10/17/24 07:00 10/17/24 09:27 10/17/24 07:00 10/17/24 09:27 10/17/24 08:21
Vital Signs
Temp Pulse Resp BP Pulse Ox
97.8 F 70 20 115/53 99
10/17/24 07:00 10/17/24 09:27 10/17/24 07:00 10/17/24 09:27 10/17/24 08:21
Intake & Output
10/15/24 10/16/24 10/17/24 10/18/24
06:59 06:59 06:59 06:59
Intake Total 1080 / 1080 2920 / 2920
Output Total 1900 / 1900 2950 / 2950 5100 / 5100
Balance -1900 / -1900 -1870 / -1870 -2180 / -2180
Physical Exam
Physical Exam
General: No acute distress, AAOX3
Neck: Negative JVD
Heart: Regular, Negative S3 positive S1/S2, Negative S4, No murmur
Lungs: CTA b/l, negative wheezes/rales/rhonchi
Abd: Positive BS, NT/ND, neg rebound/rigidity/guarding
Ext: Negative cyanosis/clubbing. +2 b/l edema
Neuro: nonfocal
[2024-10-17 12:44] LABS: Glucose - Point of Care 176 mg/dl (70-99)
[2024-10-17] MEDS: NOVOLOG FLEXPEN-LOW RESISTANCE 1 UNITS SC ×2 (12:48→17:00)
[2024-10-17 13:54] VITALS: BP 124/78; PULSE 72; O2SAT 99
[2024-10-17 15:00] VITALS: BP 163/71
[2024-10-17] MEDS: ZAROXOLYN 2.5 MG PO (16:48)
[2024-10-17 17:00] LABS: Glucose - Point of Care 164 mg/dl (70-99)
[2024-10-17] MEDS: LOVENOX 40 MG SC (17:01)
[2024-10-17] MEDS: MIRALAX 17 GRAMS PO (20:49)
[2024-10-17] MEDS: SENOKOT-S 1 TABLET PO (20:50)
[2024-10-17] MEDS: CRESTOR 10 MG PO (20:50)
[2024-10-17 21:39] LABS: Glucose - Point of Care 226 mg/dl (70-99)
[2024-10-17 23:00] VITALS: BP 137/65
[2024-10-18] MEDS: ATIVAN 0.5 MG PO (00:32)
[2024-10-18] MEDS: TYLENOL 650 MG PO (00:32)
[2024-10-18] MEDS: ULTRAM 50 MG PO ×2 (05:33→21:58)
[2024-10-18] MEDS: SYNTHROID 112 MCG PO (05:34)
[2024-10-18 06:00] VITALS: BMI 28.8
[2024-10-18 07:00] VITALS: BP 118/56
--- NOTE | 2024-10-18 07:50 | W.PN.HOSP.TC ---
Today's Communication/Plan
-
IV Lasix.
Assessment / Plan
Assessment / Plan
74 M with dementia brought to ED for lower extremity swelling. Found to be hypoxic in ED with infiltrates. Has elevated BNP, bilateral leg edema and vascular congestion. Suspect new diagnosis fo CHF. AFIB with intermittent long RR/pauses as long
as 3 seconds on metoprolol 12.5 bid. ECG otherwise unremarkable and troponin negative. Hgb is stable with negative rectal exam.
Gen: NAD, Awake and alert, NCAT
Eyes: EOMI, PERRLA, no scleral icterus.
Neck: supple.
CV: RRR, +S1/S2, no m/r/g.
Resp: CTAB anteriorly
Abd: +BS, soft, NT, ND
Skin: No rashes. continues to remain 3+ B/L LE edema
Neuro: CN 2-12 intact, non-focal.
Psych: Calm this morning
CXR: Small right pleural effusion. Cardiomegaly.
Acute hypoxemic respiratory insufficiency due to acute diastolic CHF:
-proBNP 5060
-CXR above
-cont IV Lasix 80 mg twice daily. Hold Zaroxolyn
-cont BB, carvedilol 3.125 mg twice a day and tolerating beta-blockers okay
-daily wts, I/Os
-note procal NEG, afebrile
-cardiology following--> discussed with cardiology today
-FR
-weaned to RA
-Plan for echocardiogram today
-PT OT eval
Fe def anemia:
-recent diverticulitis with GI bleed, transfused and discharged at hgb of around 9.
-Hb stable, trend
Acute kidney injury:
Creatinine 1.8 today
Avoid nephrotoxic
Monitor renal function in a.m.
PAF:
-Hb borderline but stable
-holding Eliquis, as per cards, until further GI evaluation as outpt
-cont BB
Other problems:
Obesity due to excess calories
DM2: a1c 6.5%, SSI/accuchecks.
GERD: cont BB
Hypothyroidism: Continue Levoxyl, TSH noted but Levoxyl dose recently changed.
Chronic back pain: h/o chronic vertebral osteo s/p L3-L5 laminectomy and L4-5 fusion in Jul 2024. Biopsy negative for infection. Pain control, outpatient neurosurgery f/u.
Dementia with behavioral disturbances: Ativan PRN, psych following. Reviewed latest psych note.
FULL/Lovenox (renally dosed Lovenox today)
Anticipated Discharge: 24 - 48 hours
Subjective/Interval History
-
Date of Service: October 18, 2024
Patient feels better overall today. Still peripheral edema but less shortness of breath. No chest pain
Objective Data
-
Labs:
Laboratory Results
10/18/24
07:21
WBC Pending
Hgb Pending
Hct Pending
Plt Count Pending
Sodium Pending
Potassium Pending
Chloride Pending
Carbon Dioxide Pending
BUN Pending
Creatinine Pending
Glucose Pending
Calcium Pending
Vital Signs:
Vital Signs
Temp Pulse Resp BP Pulse Ox
97.3 F 71 18 137/65 96
10/17/24 23:00 10/17/24 23:00 10/17/24 23:00 10/17/24 23:00 10/17/24 23:00
I&O
10/17/24 10/18/24 10/19/24
06:59 06:59 06:59
Intake Total 2920 / 2920 838 / 838 720 / 720
Output Total 5100 / 5100 1050 / 1050 750 / 750
Balance -2180 / -2180 -212 / -212 -30 / -30
[2024-10-18 07:54] LABS: Glucose - Point of Care 117 mg/dl (70-99)
[2024-10-18] MEDS: NOVOLOG FLEXPEN-LOW RESISTANCE SC (08:07)
[2024-10-18 08:49] LABS: Hematocrit 26.5 % (39.0-52.0); Hemoglobin 8.5 g/dL (13.0-18.0); Mean Corp Hgb Conc. 32.1 g/dL (33.0-37.0); Mean Corpuscular Hgb 29.5 pg (27.0-31.0); Mean Platelet Volume 9.6 fL (7.4-10.4); Platelet Count 174 10^3/uL (130-400); Red Blood Cell Count 2.88 10^6/uL (4.70-6.10); Red Cell Dist. Width 16.1 % (11.5-14.5); White Blood Cell Count 6.3 10^3/uL (4.8-10.8)
[2024-10-18 09:02] LABS: Blood Urea Nitrogen 46 mg/dl (9-20); Calcium 8.9 mg/dl (8.4-10.2); Carbon Dioxide 33 mmol/L (22-30); Chloride 94 mmol/L (98-107); Estimated Creatinine Clearance 38 ml/min; Glucose 108 mg/dl (70-99); Potassium 4.6 mmol/L (3.5-5.1); Sodium 139 mmol/L (135-145); eGFR 39.25
[2024-10-18] MEDS: LIDOCAINE 4% PATCH 1 PATCH TOPICAL (09:28)
[2024-10-18] MEDS: VITAMIN B1 100 MG PO (09:29)
[2024-10-18] MEDS: FEOSOL 325 MG PO (09:29)
[2024-10-18] MEDS: PROTONIX 40 MG PO ×2 (09:29→21:55)
[2024-10-18] MEDS: FLOMAX 0.4 MG PO (09:30)
[2024-10-18] MEDS: SANTYL OINTMENT 1 APPLIC TOPICAL (09:30)
[2024-10-18] MEDS: LASIX 80 MG IV ×2 (09:30→17:28)
[2024-10-18] MEDS: VITAMIN D3 (cholecalciferol) 125 MCG PO (09:30)
[2024-10-18] MEDS: COREG 3.125 MG PO ×2 (09:31→21:54)
[2024-10-18] MEDS: MYCOSTATIN OINTMENT 1 APPLIC TOPICAL ×2 (09:32→21:55)
[2024-10-18] MEDS: SENOKOT-S PO (09:34)
[2024-10-18] MEDS: MIRALAX PO (09:34)
--- NOTE | 2024-10-18 10:22 | CM ---
Chart reviewed and will await updated notes from psychiatry, patient was admitted from [facility] and plan is for patient to return to [facility] when stable. Patient has been difficult to communicate with and keeps asking for immigration case worker to
send him back to [place] here he was residing before family placed him in a group home. Patient made aware that he can continue with his goal to return home from group home.
Plan; To return to [facility].
[facility]
Report [phone]
--- NOTE | 2024-10-18 11:06 | W.PN.UPDATE ---
Update Note
Progress Note Update
Patient seen as follow up at bedside, chart reviewed, discussed with staff. Mr. Márquez was first seen by psychiatry with reports of agitation and the desire to leave AMA. Currently, patient is cooperative and pleasant although he tells me he still
does desire to return home but he understands this would not be safe in his current condition. He has made arrangements to have his home made more accessible over the Winter in hopes to return home in the Spring. He has been complaint with treatment.
Impression/Recommendation: Agitation which has resolved, no psychiatric history noted - psych will sign off, call or reconsult with any new or worsening concerns.
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
[2024-10-18 11:39] LABS: Glucose - Point of Care 219 mg/dl (70-99)
[2024-10-18] MEDS: NOVOLOG FLEXPEN-LOW RESISTANCE 2 UNITS SC (11:47)
[2024-10-18 15:00] VITALS: BP 148/56
[2024-10-18 17:17] LABS: Glucose - Point of Care 157 mg/dl (70-99)
[2024-10-18] MEDS: LOVENOX 30 MG SC (17:28)
[2024-10-18] MEDS: NOVOLOG FLEXPEN-LOW RESISTANCE 1 UNITS SC (17:29)
[2024-10-18] MEDS: MIRALAX 17 GRAMS PO (21:54)
[2024-10-18] MEDS: CRESTOR 10 MG PO (21:54)
[2024-10-18] MEDS: SENOKOT-S 1 TABLET PO (21:55)
[2024-10-18 22:09] LABS: Glucose - Point of Care 152 mg/dl (70-99)
[2024-10-18 23:45] VITALS: BP 132/53
[2024-10-19] MEDS: BenGay-Like 1 APPLIC TOPICAL (03:46)
[2024-10-19] MEDS: SYNTHROID 112 MCG PO (05:21)
[2024-10-19 06:00] VITALS: BMI 28.9
[2024-10-19 07:00] VITALS: BP 112/57
[2024-10-19 07:36] LABS: Glucose - Point of Care 125 mg/dl (70-99)
[2024-10-19 07:52] LABS: Hemoglobin 8.2 g/dL (13.0-18.0); Mean Corp Hgb Conc. 32.8 g/dL (33.0-37.0); Mean Corpuscular Hgb 29.6 pg (27.0-31.0); Mean Corpuscular Volume 90.3 fL (80.0-94.0); Mean Platelet Volume 9.5 fL (7.4-10.4); Platelet Count 188 10^3/uL (130-400); Red Blood Cell Count 2.77 10^6/uL (4.70-6.10); Red Cell Dist. Width 15.9 % (11.5-14.5); White Blood Cell Count 8.2 10^3/uL (4.8-10.8)
[2024-10-19] MEDS: NOVOLOG FLEXPEN-LOW RESISTANCE SC (08:12)
[2024-10-19 08:20] LABS: Blood Urea Nitrogen 56 mg/dl (9-20); Calcium 8.7 mg/dl (8.4-10.2); Carbon Dioxide 33 mmol/L (22-30); Chloride 92 mmol/L (98-107); Estimated Creatinine Clearance 36 ml/min; Glucose 117 mg/dl (70-99); Magnesium 2.2 mg/dl (1.6-2.3); Potassium 4.1 mmol/L (3.5-5.1); Sodium 138 mmol/L (135-145); eGFR 36.79
--- NOTE | 2024-10-19 08:44 | W.PN.HOSP.TC ---
Today's Communication/Plan
-
Monitor renal function. Holding diuretics today
Assessment / Plan
Assessment / Plan
74 M with dementia brought to ED for lower extremity swelling. Found to be hypoxic in ED with infiltrates. Has elevated BNP, bilateral leg edema and vascular congestion. Suspect new diagnosis fo CHF. AFIB with intermittent long RR/pauses as long
as 3 seconds on metoprolol 12.5 bid. ECG otherwise unremarkable and troponin negative. Hgb is stable with negative rectal exam.
Gen: NAD, Awake and alert, NCAT
Eyes: EOMI, PERRLA, no scleral icterus.
Neck: supple.
CV: RRR, +S1/S2, no m/r/g.
Resp: CTAB anteriorly
Abd: +BS, soft, NT, ND
Skin: No rashes. continues to remain 3+ B/L LE edema
Neuro: CN 2-12 intact, non-focal.
Psych: Calm this morning
CXR: Small right pleural effusion. Cardiomegaly.
Echocardiogram:
Normal left ventricular size, wall thickness and systolic function.
LV ejection fraction is 55-60% by visual assessment.
Normal right ventricular systolic function.
Trace mitral regurgitation.
Trace aortic regurgitation.
No pulmonic regurgitation is seen.
Normal pericardium without effusion.
The IVC is of normal size but does not demonstrate normal respiratory
variation.
Acute hypoxemic respiratory insufficiency due to acute diastolic CHF:
-proBNP 5060
-CXR above
-Hold IV Lasix 80 mg twice daily. Hold Zaroxolyn. Repeat renal function in a.m. and redose diuretics depending on creatinine
-cont BB, carvedilol 3.125 mg twice a day and tolerating beta-blockers okay
-daily wts, I/Os
-note procal NEG, afebrile
-cardiology following--> discussed with cardiology today
-FR
-weaned to RA
-Reviewed echocardiogram results
-PT OT eval
Fe def anemia:
-recent diverticulitis with GI bleed, transfused and discharged at hgb of around 9.
-Hb stable, trend
Acute kidney injury:
Creatinine 1.8 today
Avoid nephrotoxic
Monitor renal function in a.m.
PAF:
-Hb borderline but stable
-holding Eliquis, as per cards, until further GI evaluation as outpt
-cont BB
Other problems:
Obesity due to excess calories
DM2: a1c 6.5%, SSI/accuchecks.
GERD: cont BB
Hypothyroidism: Continue Levoxyl, TSH noted but Levoxyl dose recently changed.
Chronic back pain: h/o chronic vertebral osteo s/p L3-L5 laminectomy and L4-5 fusion in Jul 2024. Biopsy negative for infection. Pain control, outpatient neurosurgery f/u.
Dementia with behavioral disturbances: Ativan PRN, psych following. Reviewed latest psych note.
FULL/Lovenox (renally dosed Lovenox today)
Anticipated Discharge: Within 24 hours
Subjective/Interval History
-
Date of Service: October 19, 2024
Patient with no shortness of breath or chest pain. Less peripheral edema.
Objective Data
-
Labs:
Laboratory Results
10/19/24
07:01
WBC 8.2
Hgb 8.2 L
Hct 25.0 L
Plt Count 188
Sodium 138
Potassium 4.1
Chloride 92 L
Carbon Dioxide 33 H
BUN 56 H
Creatinine 1.9 H
Glucose 117 H
Calcium 8.7
Vital Signs:
Vital Signs
Temp Pulse Resp BP Pulse Ox
97.6 F 79 20 132/53 98
10/18/24 23:45 10/18/24 23:45 10/18/24 23:45 10/18/24 23:45 10/18/24 23:45
I&O
10/18/24 10/19/24 10/20/24
06:59 06:59 06:59
Intake Total 838 / 838 1440 / 1440 240 / 240
Output Total 1050 / 1050 2275 / 2275 1125 / 1125
Balance -212 / -212 -835 / -835 -885 / -885
[2024-10-19] MEDS: LIDOCAINE 4% PATCH 1 PATCH TOPICAL (09:35)
[2024-10-19] MEDS: MIRALAX PO ×2 (09:37→21:23)
[2024-10-19] MEDS: LASIX 80 MG IV (09:37)
[2024-10-19] MEDS: PROTONIX 40 MG PO ×2 (09:39→21:25)
[2024-10-19] MEDS: VITAMIN B1 100 MG PO (09:39)
[2024-10-19] MEDS: COREG 3.125 MG PO ×2 (09:39→21:25)
[2024-10-19] MEDS: SENOKOT-S PO ×2 (09:39→21:25)
[2024-10-19] MEDS: FEOSOL 325 MG PO (09:40)
[2024-10-19] MEDS: SANTYL OINTMENT 1 APPLIC TOPICAL (09:40)
[2024-10-19] MEDS: FLOMAX 0.4 MG PO (09:41)
[2024-10-19] MEDS: MYCOSTATIN OINTMENT 1 APPLIC TOPICAL ×2 (09:41→21:28)
[2024-10-19] MEDS: VITAMIN D3 (cholecalciferol) 125 MCG PO (09:41)
[2024-10-19 11:02] LABS: Glucose - Point of Care 252 mg/dl (70-99)
[2024-10-19 11:13] VITALS: BP 121/60; PULSE 73; O2SAT 98
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
[2024-10-19] MEDS: NOVOLOG FLEXPEN-LOW RESISTANCE 3 UNITS SC (13:09)
--- NOTE | 2024-10-19 14:05 | CM ---
Patient is agreeable to returning to [facility] when stable.
[facility]
Report [phone]
[2024-10-19 15:00] VITALS: BP 120/62
[2024-10-19 17:36] LABS: Glucose - Point of Care 187 mg/dl (70-99)
[2024-10-19] MEDS: NOVOLOG FLEXPEN-LOW RESISTANCE 1 UNITS SC (17:37)
[2024-10-19] MEDS: LOVENOX 30 MG SC (17:38)
[2024-10-19] MEDS: ULTRAM 50 MG PO (18:23)
[2024-10-19] MEDS: CRESTOR 10 MG PO (21:25)
[2024-10-19 21:29] LABS: Glucose - Point of Care 238 mg/dl (70-99)
[2024-10-19] MEDS: ATIVAN 0.5 MG PO (23:23)
[2024-10-19 23:45] VITALS: BP 119/59
[2024-10-20] MEDS: ULTRAM 50 MG PO ×2 (01:24→18:38)
[2024-10-20] MEDS: DURAGESIC 25 MCG/HR PATCH TRANSDERM (03:21)
[2024-10-20 06:00] VITALS: BMI 29.5
[2024-10-20] MEDS: SYNTHROID 112 MCG PO (06:02)
[2024-10-20] MEDS: DURAGESIC 25 MCG/HR PATCH 1 PATCH TRANSDERM (06:04)
[2024-10-20 07:38] LABS: Glucose - Point of Care 139 mg/dl (70-99)
[2024-10-20] MEDS: NOVOLOG FLEXPEN-LOW RESISTANCE SC (08:22)
[2024-10-20 09:00] VITALS: BP 135/56; PULSE 78; O2SAT 98
--- NOTE | 2024-10-20 09:01 | W.PN.HOSP.TC ---
Today's Communication/Plan
-
Monitoring renal function. Awaiting cardiology reeval.
Assessment / Plan
Assessment / Plan
74 M with dementia brought to ED for lower extremity swelling. Found to be hypoxic in ED with infiltrates. Has elevated BNP, bilateral leg edema and vascular congestion. Suspect new diagnosis fo CHF. AFIB with intermittent long RR/pauses as long
as 3 seconds on metoprolol 12.5 bid. ECG otherwise unremarkable and troponin negative. Hgb is stable with negative rectal exam.
Gen: NAD, Awake and alert, NCAT
Eyes: EOMI, PERRLA, no scleral icterus.
Neck: supple.
CV: RRR, +S1/S2, no m/r/g.
Resp: CTAB anteriorly
Abd: +BS, soft, NT, ND
Skin: No rashes. continues to remain 3+ B/L LE edema
Neuro: CN 2-12 intact, non-focal.
Psych: Calm this morning
CXR: Small right pleural effusion. Cardiomegaly.
Echocardiogram:
Normal left ventricular size, wall thickness and systolic function.
LV ejection fraction is 55-60% by visual assessment.
Normal right ventricular systolic function.
Trace mitral regurgitation.
Trace aortic regurgitation.
No pulmonic regurgitation is seen.
Normal pericardium without effusion.
The IVC is of normal size but does not demonstrate normal respiratory
variation.
Acute hypoxemic respiratory insufficiency due to acute diastolic CHF:
-proBNP 5060
-CXR above
-Hold IV Lasix 80 mg twice daily. Hold Zaroxolyn. Repeat renal function in a.m. and redose diuretics depending on creatinine.
-cont BB, carvedilol 3.125 mg twice a day and tolerating beta-blockers okay
-daily wts, I/Os
-note procal NEG, afebrile
-cardiology following--> discussed with cardiology today
-FR
-weaned to RA
-Reviewed echocardiogram results
-PT OT eval.
-Discharge planning once cleared by cardiology
Fe def anemia:
-recent diverticulitis with GI bleed, transfused and discharged at hgb of around 9.
-Hb stable, trend
Acute kidney injury:
Creatinine 1.8 today
Avoid nephrotoxic
Monitor renal function in a.m.
PAF:
-Hb borderline but stable
-holding Eliquis, as per cards, until further GI evaluation as outpt
-cont BB
Other problems:
Obesity due to excess calories
DM2: a1c 6.5%, SSI/accuchecks.
GERD: cont BB
Hypothyroidism: Continue Levoxyl, TSH noted but Levoxyl dose recently changed.
Chronic back pain: h/o chronic vertebral osteo s/p L3-L5 laminectomy and L4-5 fusion in Jul 2024. Biopsy negative for infection. Pain control, outpatient neurosurgery f/u.
Dementia with behavioral disturbances: Ativan PRN, psych following. Reviewed latest psych note.
FULL/Lovenox (renally dosed Lovenox today)
Anticipated Discharge: Within 24 hours
Subjective/Interval History
-
Date of Service: October 20, 2024
No shortness of breath. Lower extremity edema is much less. No chest pain afebrile
Objective Data
-
Labs:
Laboratory Results
10/20/24
06:00
WBC Pending
Hgb Pending
Hct Pending
Plt Count Pending
Sodium Pending
Potassium Pending
Chloride Pending
Carbon Dioxide Pending
BUN Pending
Creatinine Pending
Glucose Pending
Calcium Pending
Vital Signs:
Vital Signs
Temp Pulse Resp BP Pulse Ox
98 F 84 14 119/59 98
10/19/24 23:45 10/19/24 23:45 10/19/24 23:45 10/19/24 23:45 10/19/24 23:45
I&O
10/19/24 10/20/24 10/21/24
06:59 06:59 06:59
Intake Total 1440 / 1440 1380 / 1380
Output Total 2275 / 2275 3125 / 3125
Balance -835 / -835 -1745 / -1745
[2024-10-20 09:17] VITALS: BP 116/56
[2024-10-20 09:26] LABS: Hematocrit 27.1 % (39.0-52.0); Hemoglobin 8.5 g/dL (13.0-18.0); Mean Corp Hgb Conc. 31.4 g/dL (33.0-37.0); Mean Corpuscular Hgb 29.4 pg (27.0-31.0); Mean Corpuscular Volume 93.8 fL (80.0-94.0); Mean Platelet Volume 9.2 fL (7.4-10.4); Platelet Count 168 10^3/uL (130-400); Red Blood Cell Count 2.89 10^6/uL (4.70-6.10); Red Cell Dist. Width 15.9 % (11.5-14.5)
[2024-10-20 09:44] LABS: Blood Urea Nitrogen 57 mg/dl (9-20); Calcium 8.7 mg/dl (8.4-10.2); Carbon Dioxide 31 mmol/L (22-30); Chloride 92 mmol/L (98-107); Estimated Creatinine Clearance 36 ml/min; Glucose 240 mg/dl (70-99); Potassium 4.2 mmol/L (3.5-5.1); Sodium 137 mmol/L (135-145); eGFR 36.79
[2024-10-20] MEDS: LIDOCAINE 4% PATCH 1 PATCH TOPICAL (09:57)
[2024-10-20] MEDS: SENOKOT-S PO (10:02)
[2024-10-20] MEDS: COREG 3.125 MG PO ×2 (10:03→20:19)
[2024-10-20] MEDS: MIRALAX PO (10:03)
[2024-10-20] MEDS: FEOSOL 325 MG PO (10:03)
[2024-10-20] MEDS: VITAMIN B1 100 MG PO (10:03)
[2024-10-20] MEDS: FLOMAX 0.4 MG PO (10:03)
[2024-10-20] MEDS: VITAMIN D3 (cholecalciferol) 125 MCG PO (10:03)
[2024-10-20] MEDS: PROTONIX 40 MG PO ×2 (10:03→20:15)
[2024-10-20 11:38] LABS: Glucose - Point of Care 215 mg/dl (70-99)
--- NOTE | 2024-10-20 13:21 | CM ---
Patient to transfer to [facility] when stable. Needs ambulance transport.
[facility]
Report [phone]
[2024-10-20] MEDS: MYCOSTATIN OINTMENT 1 APPLIC TOPICAL ×2 (13:24→20:19)
[2024-10-20] MEDS: SANTYL OINTMENT 1 APPLIC TOPICAL (13:25)
[2024-10-20] MEDS: NOVOLOG FLEXPEN-LOW RESISTANCE 2 UNITS SC ×2 (13:26→17:29)
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
--- NOTE | 2024-10-20 15:19 | WOUNDNOTE ---
WO RN note: Patient sitting in chair with air chair cushion. Sacral ulcer slightly improved with less redness and slightly less yellow slough. L heel small scab remains dry. Protective foam dressings maintained. RN Will recently changed sacral
dressing, moderate serous drainage. Patient has a Waffle air overlay mattress. Instructed patient pressure injury prevention measures. LE edema less than last week. Patient reluctant to wear Tubigrip. t/c SPD and ordered size G Tubigrip. Patient
instructed to take air chair cushion when discharged. Will update RN Will. Will follow as needed.
[2024-10-20 15:40] VITALS: BP 130/58
[2024-10-20 17:05] LABS: Glucose - Point of Care 200 mg/dl (70-99)
[2024-10-20] MEDS: LOVENOX 30 MG SC (17:30)
[2024-10-20] MEDS: MIRALAX 17 GRAMS PO (20:16)
[2024-10-20] MEDS: SENOKOT-S 1 TABLET PO (20:16)
[2024-10-20] MEDS: TYLENOL 650 MG PO (21:13)
[2024-10-20] MEDS: CRESTOR 10 MG PO (21:14)
[2024-10-20 22:20] LABS: Glucose - Point of Care 269 mg/dl (70-99)
[2024-10-20 23:26] VITALS: BP 105/53
[2024-10-21] MEDS: ULTRAM 50 MG PO ×2 (00:45→18:34)
[2024-10-21] MEDS: SYNTHROID 112 MCG PO (06:22)
[2024-10-21] MEDS: FLOMAX 0.4 MG PO (08:00)
[2024-10-21] MEDS: FEOSOL 325 MG PO (08:00)
[2024-10-21] MEDS: MIRALAX 17 GRAMS PO (08:00)
[2024-10-21] MEDS: LIDOCAINE 4% PATCH 1 PATCH TOPICAL (08:00)
[2024-10-21] MEDS: COREG 3.125 MG PO (08:00)
[2024-10-21] MEDS: VITAMIN D3 (cholecalciferol) 125 MCG PO (08:00)
[2024-10-21] MEDS: VITAMIN B1 100 MG PO (08:00)
[2024-10-21] MEDS: PROTONIX 40 MG PO (08:00)
[2024-10-21] MEDS: SENOKOT-S 1 TABLET PO (08:00)
[2024-10-21 08:32] LABS: Hematocrit 26.2 % (39.0-52.0); Hemoglobin 8.6 g/dL (13.0-18.0); Mean Corp Hgb Conc. 32.8 g/dL (33.0-37.0); Mean Corpuscular Volume 91.3 fL (80.0-94.0); Mean Platelet Volume 9.4 fL (7.4-10.4); Platelet Count 174 10^3/uL (130-400); Red Blood Cell Count 2.87 10^6/uL (4.70-6.10); Red Cell Dist. Width 15.8 % (11.5-14.5); White Blood Cell Count 6.6 10^3/uL (4.8-10.8)
[2024-10-21 08:34] LABS: Glucose - Point of Care 238 mg/dl (70-99)
[2024-10-21] MEDS: NOVOLOG FLEXPEN-LOW RESISTANCE 2 UNITS SC ×2 (08:36→12:52)
[2024-10-21 08:51] LABS: Blood Urea Nitrogen 59 mg/dl (9-20); Calcium 8.9 mg/dl (8.4-10.2); Carbon Dioxide 31 mmol/L (22-30); Chloride 96 mmol/L (98-107); Estimated Creatinine Clearance 38 ml/min; Glucose 145 mg/dl (70-99); Sodium 137 mmol/L (135-145); eGFR 39.25
--- NOTE | 2024-10-21 09:29 | W.PN.HOSP.TC ---
Today's Communication/Plan
-
Discharge planning today
Assessment / Plan
Assessment / Plan
74 M with dementia brought to ED for lower extremity swelling. Found to be hypoxic in ED with infiltrates. Has elevated BNP, bilateral leg edema and vascular congestion. Suspect new diagnosis fo CHF. AFIB with intermittent long RR/pauses as long
as 3 seconds on metoprolol 12.5 bid. ECG otherwise unremarkable and troponin negative. Hgb is stable with negative rectal exam.
Gen: NAD, Awake and alert, NCAT
Eyes: EOMI, PERRLA, no scleral icterus.
Neck: supple.
CV: RRR, +S1/S2, no m/r/g.
Resp: CTAB anteriorly
Abd: +BS, soft, NT, ND
Skin: No rashes. continues to remain 2+ B/L LE edema
Neuro: CN 2-12 intact, non-focal.
Psych: Calm this morning
CXR: Small right pleural effusion. Cardiomegaly.
Echocardiogram:
Normal left ventricular size, wall thickness and systolic function.
LV ejection fraction is 55-60% by visual assessment.
Normal right ventricular systolic function.
Trace mitral regurgitation.
Trace aortic regurgitation.
No pulmonic regurgitation is seen.
Normal pericardium without effusion.
The IVC is of normal size but does not demonstrate normal respiratory
variation.
Acute hypoxemic respiratory insufficiency due to acute diastolic CHF:
-proBNP 5060
-CXR above
-Hold IV Lasix 80 mg twice daily. Hold Zaroxolyn. Restart oral diuretics per cardiology guidance.
-cont BB, carvedilol 3.125 mg twice a day and tolerating beta-blockers okay
-daily wts, I/Os
-note procal NEG, afebrile
-cardiology following
-FR
-weaned to RA
-Reviewed echocardiogram results
-PT OT eval.
-Discharge planning today
Fe def anemia:
-recent diverticulitis with GI bleed, transfused and discharged at hgb of around 9.
-Hb stable, trend
Acute kidney injury:
Creatinine 1.8 today
Avoid nephrotoxic
Monitor renal function in a.m.
PAF:
-Hb borderline but stable
-holding Eliquis, as per cards, until further GI evaluation as outpt
-cont BB
Other problems:
Obesity due to excess calories
DM2: a1c 6.5%, SSI/accuchecks.
GERD: cont BB
Hypothyroidism: Continue Levoxyl, TSH noted but Levoxyl dose recently changed.
Chronic back pain: h/o chronic vertebral osteo s/p L3-L5 laminectomy and L4-5 fusion in Jul 2024. Biopsy negative for infection. Pain control, outpatient neurosurgery f/u.
Dementia with behavioral disturbances: Zaida PRN, psych following. Reviewed latest psych note.
FULL/Lovenox (renally dosed Lovenox today)
Anticipated Discharge: Today
Subjective/Interval History
-
Date of Service: October 21, 2024
No new complaints.
Objective Data
-
Labs:
Laboratory Results
10/21/24
07:52
WBC 6.6
Hgb 8.6 L
Hct 26.2 L
Plt Count 174
Sodium 137
Potassium 4.0
Chloride 96 L
Carbon Dioxide 31 H
BUN 59 H
Creatinine 1.8 H
Glucose 145 H
Calcium 8.9
Vital Signs:
Vital Signs
Temp Pulse Resp BP Pulse Ox
97.6 F 90 16 135/60 95
10/20/24 23:26 10/21/24 08:00 10/20/24 23:26 10/21/24 08:00 10/20/24 23:26
I&O
10/20/24 10/21/24 10/22/24
06:59 06:59 06:59
Intake Total 1380 / 1380 600 / 600
Output Total 3125 / 3125 600 / 600
Balance -1745 / -1745 0 / 0
--- NOTE | 2024-10-21 09:38 | CM ---
Patient to return to [facility] when stable.
[facility]
Report [phone]

Plan; Patient to return to [facility] when stable.
[2024-10-21 09:55] VITALS: BP 139/62
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
[2024-10-21] MEDS: MYCOSTATIN OINTMENT 1 APPLIC TOPICAL (12:24)
[2024-10-21] MEDS: SANTYL OINTMENT 1 APPLIC TOPICAL (12:24)
[2024-10-21 12:29] LABS: Glucose - Point of Care 208 mg/dl (70-99)
--- NOTE | 2024-10-21 12:43 | W.DCSUMMARY ---
Discharge Summary
Discharge Data
Date of Admission: 10/13/24
Date of Discharge: 10/21/24
-
Pending Results: No
Hospital Course
Patient is 74 years old male with history of hypertension, A-fib, cognitive deficits, BPH, hypothyroidism, presented to the hospital with heart failure exacerbation. Patient was diuresed intravenously. Cardiology consulted. There was some
concerns about medical decision capacity and psychiatry was consulted and saw him throughout this hospital stay. Updated echocardiogram showed EF of 55 to 60% and trace mitral regurgitation and trace aortic regurgitation. He had some mild
overdiuresis and diuretics were held. Cardiology recommended to restart his home doses regimen of diuretics. Cardiology cleared him for discharge. He will be discharged in stable condition today.
Discharge duration: 35 minutes
Discharge Plan
-
Patient Disposition: Usp/SNF
Discharge Diagnosis/Procedures: Acute diastolic congestive heart failure. Acute kidney injury. Paroxysmal atrial fibrillation.
Condition: Fair
Diet: Low Cholesterol, 2 Gram Sodium and Restrict fluids to 48 oz
Activity: As tolerated
Blood Work: Please PCP to order CBC, BMP within 1 week
Activity Restrictions/Additional Instructions:
Wound Care Instructions
Sacral ulcer-clean with saline or Vashe wound cleanser, Nystatin ointment to periwound skin, Santyl ointment, alginate, silcone border foam, change daily and prn drainage.
L heel scab-no sting barrier wipe and foam dressing, change q 3 days and prn loosened dressing.
L toe scabbed abrasions-no sting skin prep daily.
Bilateral knee high Tubigrip as tolerated; remove q hs; reapply q am.
air mattress
Turning schedule
Elevate heels off bed with pillow,s and/or air chair cushion.
Pressure redistributing chair cushion (i.e. Air chair cushion, Roho).
Follow up at wound care center call for an appointment.
Instructions: *PCP/Other Dielectric Tester Heart Failure Instructions
Referrals:
Kristina Chester PA-C [Specified Professional Personl] - 11/22/24 1:20 pm (You have a cardiology follow-up appointment at the [place] office. Please call with questions)
Kelsey Mills, [Family Provider] -
Prescriptions:
New
carvedilol 3.125 mg Tablet
3.125 mg PO BID 30 Days Qty: 60 0RF
Continued
acetaminophen 325 mg Tablet
650 mg PO Q4HPRN MDD 3000 mg PRN (Reason: mild pain/temp >101)
nystatin 100,000 unit/gram Ointment
1 applic TOPICAL BID
thiamine HCl (vitamin B1) 100 mg Tablet
100 mg PO DAILY
tamsulosin 0.4 mg Capsule
0.4 mg PO DAILY
ferrous sulfate 325 mg (65 mg iron) Tablet
325 mg PO DAILY
lidocaine 5 % Adhesive Patch,Medicated
1 patch TOPICAL DAILY
Fleet Enema 19-7 gram/118 mL Enema
118 ml WI DAILYPRN PRN (Reason: if no bm 24 hrs aftr bisacodyl)
insulin aspart U-100 100 unit/mL Cartridge
2 - 12 sliding scale dose SC AC
Rx Instructions:
141-180=2u; 181-220=4u; 221-260=6u; 261-300=8u; 301-340=10u; 341+=12u
rosuvastatin 10 mg Tablet
10 mg PO HS
cholecalciferol (vitamin D3) [Vitamin D3] 125 mcg (5,000 unit) Tablet
125 mcg PO DAILY
polyethylene glycol 3350 [HealthyLax] 17 gram Powder In Packet
17 g PO BID Qty: 30 0RF
sennosides-docusate sodium 8.6-50 mg Tablet
1 tab PO BID Qty: 60 0RF
pantoprazole 40 mg Tablet,Delayed Release (Dr/Ec)
40 mg PO BID Qty: 60 0RF
furosemide 40 mg Tablet
40 mg PO BID
magnesium hydroxide [Milk of Magnesia] 400 mg/5 mL Suspension
30 ml PO DAILYPRN PRN (Reason: if no bm after 3 days)
bisacodyl [Dulcolax (bisacodyl)] 10 mg Suppository
10 mg WI DAILYPRN PRN (Reason: if no bm in 24hrs after MOM)
Santyl 250 unit/gram Ointment
1 applic TOPICAL PRN PRN (Reason: soilage cleanse)
Rx Instructions:
apply to sacrum
Santyl 250 unit/gram Ointment
1 applic TOPICAL DAILY
Rx Instructions:
apply to sacrum
levothyroxine 112 mcg tablet
112 mcg PO DAILY@0600
tramadol 50 mg Tablet
50 mg PO Q6HPRN PRN (Reason: moderate-severe pain) Qty: 4 0RF
fentanyl 25 mcg/hr Patch 72 Hour
1 patch transdermal Q72H Qty: 1 0RF
Discontinued
metoprolol tartrate 25 mg Tablet
12.5 mg PO BID
Discharge Orders:
Discharge Patient (As Directed); Ordered 10/21/24
Ordered By: Alli Allen
Discharge Date and Time
Print Language: KAZAKH
[2024-10-21 16:54] LABS: Glucose - Point of Care 199 mg/dl (70-99)
[2024-10-21] MEDS: LOVENOX SC (16:56)
[2024-10-21] MEDS: NOVOLOG FLEXPEN-LOW RESISTANCE 1 UNITS SC (16:56)
[2024-10-21 17:50] VITALS: BP 160/65
[2024-10-21] MEDS: TYLENOL 650 MG PO (18:35)
== END 2024-10-21 19:00 | DRG 291 ==
LOC: 4 WEST ACU 03:41
PROVIDERS: Clinical Nurse Specialist Family Health; Internal Medicine; Student in an Organized Health Care Education/Training Program; ADMITTING PHYSICIAN Internal Medicine; ATTENDING PHYSICIAN Hospitalist; EMERGENCY PHYSICIAN Emergency Medicine; FAMILY PHYSICIAN Hospitalist; OTHER PHYSICIAN Internal Medicine Cardiovascular Disease; OTHER PHYSICIAN Psychiatry & Neurology Psychiatry
DX: I11.0 Hypertensive heart disease with heart failure (principal); I50.31 Acute diastolic (congestive) heart failure; F03.911 Unspecified dementia, unspecified severity, with agitation; F03.94 Unspecified dementia, unspecified severity, with anxiety; N17.9 Acute kidney failure, unspecified; E78.00 Pure hypercholesterolemia, unspecified; E03.9 Hypothyroidism, unspecified; E11.9 Type 2 diabetes mellitus without complications; R09.02 Hypoxemia; G89.29 Other chronic pain; F03.90 Unspecified dementia, unspecified severity, without behavioral disturbance, psychotic disturbance, mood disturbance, and anxiety; D50.9 Iron deficiency anemia, unspecified; I48.0 Paroxysmal atrial fibrillation; R33.8 Other retention of urine; I44.0 Atrioventricular block, first degree; I45.10 Unspecified right bundle-branch block; R06.89 Other abnormalities of breathing; L89.159 Pressure ulcer of sacral region, unspecified stage; K21.9 Gastro-esophageal reflux disease without esophagitis; I25.2 Old myocardial infarction; N40.1 Benign prostatic hyperplasia with lower urinary tract symptoms; E66.09 Other obesity due to excess calories; Z68.35 Body mass index [BMI] 35.0-35.9, adult; Z98.1 Arthrodesis status; Z88.8 Allergy status to other drugs, medicaments and biological substances; Z87.891 Personal history of nicotine dependence; Z79.899 Other long term (current) drug therapy; Z79.4 Long term (current) use of insulin; Z79.890 Hormone replacement therapy
CPT/HCPCS: 70450; 71046; 80048; 80053; 81003; 81015; 82607; 82746; 82962; 83036; 83540; 83550; 83735; 83880; 84100; 84145; 84439; 84443; 84484; 85025; 85027; 86850; 86900; 86901; 87070; 87086; 93005; 93306; 96365; 96375; 97116; 97163; 97166; 97530; 99285

== ENCOUNTER 2024-10-23 08:48 | Emergency (ER) | payer MEDICARE, SELFPAY ==
[2024-10-23 09:00] VITALS: BP 107/54
[2024-10-23 09:03] VITALS: BP 107/54
--- NOTE | 2024-10-23 09:17 | ED.GENMED ---
History of Present Illness
General
Chief Complaint: Swelling
Source: patient, records and [place] [facility]
Time Seen by Provider: 10/23/24 09:02
History of Present Illness
History of Present Illness:
74-year-old male with a past medical history of atrial fibrillation, CHF, hypertension, hyperlipidemia, insulin-dependent diabetes presenting to the emergency department from [facility]/rehab facility for a multitude of generalized
complaints including generalized abdominal discomfort, lower extremity edema, pain to the bilateral lower extremities and generally feeling unwell. Patient was very difficult to obtain history from but notes that prior to being at [facility] he
had been living with his sister. Patient is denying to me presently having any chest pain, shortness of breath, cough, exertional dyspnea orthopnea, nausea, vomiting, bowel changes or urinary symptoms. Patient is unable to tell me much about his
recent history or where he was disposition from to get to [facility]. On record review it appears patient was admitted at this facility for an extended period of time for CHF exacerbation had been diuresed intravenously. Per discharge summary
there was question about patient's mental capacity and decision-making but was cleared by psychiatry. Patient was discharged from this facility on October 21.
Past History
Past History
ED Past Medical History: Arrthythmia (Atrial fib), CHF, HTN, Hypercholesterolemia, IDDM, UT (X 2), Hypothyroidism and Other (Chronic back pain, Sacral decub, Diverticulitis, Compression fracture, )
ED Past Surgical History: Orthopedic (Spinal fusion, )
Social History
Tobacco: Former smoker
Alcohol: None
Drug: None
Personal:
Living: [place] [facility]
Review of Systems
Review of Systems
All Other Systems: ROS reviewed and negative except as documented in HPI and ROS
Phy Exam
Physical Exam
Physical Exam:
GENERAL: Sleeping but arousable to voice, appears much older than stated age, unkempt
HEAD: NCAT
EYE: clear conjunctiva
NECK: Supple
ENT: o/p clr, somewhat dry mucous membranes
CARDIAC: Regular rate and rhythm
LUNGS: Clear breath sounds bilaterally, no acute respiratory distress, no wheezes/rales/rhonchi
ABDOMEN: Soft, without focal tenderness, no r/g, no cvat
NEUROLOGICAL: Alert and oriented
SKIN: Warm and dry, multiple superficial areas of skin breakdown to the bilateral lower extremities and sacrum. Wounds to the lower extremities are most pronounced on the left foot
MUSCULOSKELETAL: Moderate bilateral trace pitting lower extremity edema
PSYCH: Normal and appropriate interaction.
Scores
Heart Failure Risk
Heart Failure Risk Score: Yes
History of Stroke or TIA: No
History of intubation for respiratory distress: No
Heart rate on ED arrival >/= 110: No
SaO2 <90% on arrival on room air: No
HR >/=110 during 3min walk test (or too ill to perform test): No
ECG has acute ischemic changes: No
Urea >/=12mmol/L (BUN 33.6mg/dL): Yes
Serum CO2>/=35mmol/L: No
Troponin I or T elevated to UT Level (0.4mg/dL): No
NT-proBNP >/=5,000ng/L (5,000pg/ml): No
HF Risk Score: 1
Admission Status: MEDIUM RISK 5.1% Consider observation or discharge to home with homecare & f/u visit to PCP/[facility], or SNF for treatment
Heart Score for Chest Pain Patients
STEMI patient?: Not applicable
Withdrawal Assessment of Alcohol
Withdrawal Assessment Completed?: Not applicable
Course
Orders/Labs/Results
Orders:
Orders
10/23/24 09:13
Electrocardiogram (*1) Urgent
Reason for Study: Abdominal Pain
EKG- Treatment ONCE
10/23/24 09:18
Comprehensive Metabolic Panel Urgent
Lipase Urgent
10/23/24 09:19
Type+Screen Urgent
Complete Blood Count/With Diff Urgent
NT-proBNP Urgent
Troponin I Urgent
10/23/24 10:05
Lorazepam [Ativan] 0.5 mg PO NOW STA
10/23/24 10:30
Urinalysis Reflex To Culture Urgent
Date Specimen was Collected: 10/23/24
Time Specimen was Collected: 10:29
Urine Microscopic Reflex Cult Urgent
10/23/24 14:16
Lorazepam [Ativan] 0.5 mg .ROUTE .STK-MED ONE
Abnormal Lab Results
10/23/24 10/23/24 10/23/24
09:18 09:19 10:30
RBC 3.26 L 10^6/uL
(4.70-6.10)
Hgb 9.7 L g/dL
(13.0-18.0)
Hct 29.7 L %
(39.0-52.0)
MCHC 32.7 L g/dL
(33.0-37.0)
RDW 15.7 H %
(11.5-14.5)
Abs Immat Gran (auto) 0.1 H 10^3/uL
(0-0.05)
Absolute Neuts (auto) 7.5 H 10^3/uL
(1.4-6.5)
Absolute Lymphs (auto) 0.6 L 10^3/uL
(1.2-3.4)
Immature Gran % 0.6 H %
(0-0.5)
Neutrophils % 83.6 H %
(42.2-75.2)
Lymphocytes % 7.2 L %
(20.5-51.1)
BUN 52 H mg/dl
(9-20)
Creatinine 1.5 H mg/dL
(0.7-1.3)
Glucose 175 H mg/dl
(70-99)
Alkaline Phosphatase 177 H U/L
(38-126)
Total Protein 8.3 H g/dl
(6.3-8.2)
Lipase 419 H U/L
(23-300)
Leukocyte Esterase Rfl Trace A
(Negative)
Urine RBC 3-6 A /HPF
(0-2)
Urine Bacteria (Reflex) Few A
(Negative)
Urine Albumin (Reflex) 1+ A
(Neg - Trace)
10/23/24 09:19
10/23/24 09:18
Vital Signs
Initial and Last Documented VS:
Initial Vital Signs
Pulse Ox
99
10/23/24 08:53
Last Documented Vital Signs
Temp Pulse Resp BP Pulse Ox
97.8 F 75 22 107/54 96
10/23/24 09:03 10/23/24 09:03 10/23/24 09:03 10/23/24 09:03 10/23/24 09:03
MDM/Problems Addressed
Differential Diagnosis Includes:
Acute on chronic CHF exacerbation, anemia, electrolyte derangement, recurring diverticulitis, worsening decompensation of chronic conditions
MDM/Problems Addressed:
74-year-old male presenting back to the emergency department after recently being discharged from here few days ago diagnosed with a CHF exacerbation at that time, diuresed and ultimately disposition back to [facility] rehab facility. Patient
presenting back today for similar symptoms. He is denying any dyspnea, coughing, pleurisy, anginal symptoms. Patient with multiple comorbidities. Patient is reportedly off of Eliquis at this time. Presently hemodynamically stable and in no acute
distress. Patient does appear chronically ill. Will repeat labs, EKG. Disposition pending
Chronic conditions affecting care: DM, Arrhythmia and Other (CHF)
*Pulse Oximetry
Patient hypoxic: no
*Opal Polisher Interpretation
Rate: normal
Rhythm: sinus
*Critical Care Note
Total Time (30-74mins, 75-104mins- exclusive of procedures): Not Applicable
Data Reviewed
Review of Other/Old Records Reveals: Labs, Records, Testing and Discharge Summary
Source: patient, records and ambulance crew
Comment
Comment:
9:50 AM - records were further reviewed which showed patient had continuous urinary retention and needed straight catheterization on multiple occasions. Patient is getting agitated while in the emergency department. It appears he had as needed
Ativan given to him while he was admitted so will trial a dose of this. Will also BladderScan the patient to see if he is actively retaining. If so we will straight cath and send urinalysis for sample. I attempted to contact [facility]
multiple times and have yet to be able to speak with any of their staff.
Patient Management
Social determinants of health affecting care: Living situation
Discussion with other providers: detention staff
Escalation/DeEscalation of care consider admission/obs:
Again multiple attempts were made to contact patient's [place] [facility]rehab. Based off patient's workup here I do not suspect any emergent pathologies. Patient was given 1/2 mg of Ativan twice due to agitated behavior. Upon arrival of patient's
transport service back to his [place] [facility], [facility] contacted the emergency department to obtain an upper. They were informed of patient's lab findings as well as workup here and are aware that patient will be dispositioned back to their
facility.
ED Attending Note
-
Portions of this chart may have been created with voice recognition software.� Occasional wrong word or��sound alike� substitutions may have occurred due to the inherent limitations of voice recognition software.
Discharge Plan
Departure
Patient Disposition: Intermediate/SNF
Date of Disposition: 10/23/24
Time of Disposition: 11:03
Discharge Problem:
Edema of both legs, Chronic anemia, CKD (chronic kidney disease), Back pain
Instructions: Dependent Edema (DC)
Prescriptions:
No Action
acetaminophen 325 mg Tablet
650 mg PO Q4HPRN MDD 3000 mg PRN (Reason: mild pain/temp >101)
nystatin 100,000 unit/gram Ointment
1 applic TOPICAL BID
thiamine HCl (vitamin B1) 100 mg Tablet
100 mg PO DAILY
tamsulosin 0.4 mg Capsule
0.4 mg PO DAILY
ferrous sulfate 325 mg (65 mg iron) Tablet
325 mg PO DAILY
lidocaine 5 % Adhesive Patch,Medicated
1 patch TOPICAL DAILY
Fleet Enema 19-7 gram/118 mL Enema
118 ml DC DAILYPRN PRN (Reason: if no bm 24 hrs aftr bisacodyl)
insulin aspart U-100 100 unit/mL Cartridge
2 - 12 sliding scale dose SC AC
Rx Instructions:
141-180=2u; 181-220=4u; 221-260=6u; 261-300=8u; 301-340=10u; 341+=12u
rosuvastatin 10 mg Tablet
10 mg PO HS
cholecalciferol (vitamin D3) [Vitamin D3] 125 mcg (5,000 unit) Tablet
125 mcg PO DAILY
polyethylene glycol 3350 [HealthyLax] 17 gram Powder In Packet
17 g PO BID Qty: 30 0RF
sennosides-docusate sodium 8.6-50 mg Tablet
1 tab PO BID Qty: 60 0RF
pantoprazole 40 mg Tablet,Delayed Release (Dr/Ec)
40 mg PO BID Qty: 60 0RF
furosemide 40 mg Tablet
40 mg PO BID
magnesium hydroxide [Milk of Magnesia] 400 mg/5 mL Suspension
30 ml PO DAILYPRN PRN (Reason: if no bm after 3 days)
bisacodyl [Dulcolax (bisacodyl)] 10 mg Suppository
10 mg DC DAILYPRN PRN (Reason: if no bm in 24hrs after MOM)
Santyl 250 unit/gram Ointment
1 applic TOPICAL PRN PRN (Reason: soilage cleanse)
Rx Instructions:
apply to sacrum
Santyl 250 unit/gram Ointment
1 applic TOPICAL DAILY
Rx Instructions:
apply to sacrum
levothyroxine 112 mcg tablet
112 mcg PO DAILY@0600
fentanyl 25 mcg/hr Patch 72 Hour
1 patch transdermal Q72H Qty: 1 0RF
carvedilol 3.125 mg Tablet
3.125 mg PO BID 30 Days Qty: 60 0RF
furosemide [Lasix] 40 mg Tablet
40 mg BID
Referrals:
Kelsey Mills DO [Family Provider] -
Interventions
Interventions:
*Risk Screen - Suicide Last Done: 10/23/24 09:04
*General Assessment Last Done: 10/23/24 09:04
*Neglect/Abuse Screening Last Done: 10/23/24 09:04
*ED COVID-19 Vaccine History Last Done: 10/23/24 09:04
ED- Pulmonary Assessment Last Done: 10/23/24 09:04
ED-Skin Assessment Last Done: 10/23/24 09:04
Discharge Date and Time
Print Language: MICRONESIAN
[2024-10-23 09:36] LABS: % Basophils 0.3 % (0-2); % Eosinophils 3.2 % (0-6); % Immature Granulocytes 0.6 % (0-0.5); % Lymphocytes 7.2 % (20.5-51.1); % Monocytes 5.1 % (1.7-9.3); % Neutrophils 83.6 % (42.2-75.2); Absolute Eosinophils 0.3 10^3/uL (0-0.7); Absolute Immature Granulocytes 0.1 10^3/uL (0-0.05); Absolute Lymphocytes 0.6 10^3/uL (1.2-3.4); Absolute Monocytes 0.5 10^3/uL (0.1-0.6); Absolute Neutrophils 7.5 10^3/uL (1.4-6.5); Hematocrit 29.7 % (39.0-52.0); Hemoglobin 9.7 g/dL (13.0-18.0); Mean Corp Hgb Conc. 32.7 g/dL (33.0-37.0); Mean Corpuscular Hgb 29.8 pg (27.0-31.0); Mean Corpuscular Volume 91.1 fL (80.0-94.0); Mean Platelet Volume 9.2 fL (7.4-10.4); Nucleated Red Blood Cells % 0 % (-); Platelet Count 194 10^3/uL (130-400); Red Blood Cell Count 3.26 10^6/uL (4.70-6.10); Red Cell Dist. Width 15.7 % (11.5-14.5); White Blood Cell Count 8.9 10^3/uL (4.8-10.8)
[2024-10-23 09:47] LABS: ALT (SGPT) 27 U/L (0-50); AST (SGOT) 47 U/L (17-59); Alkaline Phosphatase 177 U/L (38-126); Blood Urea Nitrogen 52 mg/dl (9-20); Calcium 9.3 mg/dl (8.4-10.2); Carbon Dioxide 27 mmol/L (22-30); Chloride 102 mmol/L (98-107); Glucose 175 mg/dl (70-99); Lipase 419 U/L (23-300); Potassium 4.7 mmol/L (3.5-5.1); Sodium 140 mmol/L (135-145); Total Bilirubin 0.6 mg/dl (0.2-1.3); Total Protein 8.3 g/dl (6.3-8.2); eGFR 48.85
[2024-10-23 09:58] LABS: NT-proBNP 1260 pg/ml; Troponin I < 0.012 ng/ml
[2024-10-23] MEDS: ATIVAN 0.5 MG PO ×2 (10:12→14:33)
[2024-10-23 10:40] LABS: Urine Albumin 1+ (Neg - Trace); Urine Bilirubin Negative (Negative); Urine Character Clear (Clear); Urine Color Yellow; Urine Glucose Negative (Negative); Urine Ketone Negative (Negative); Urine Leukocyte Trace (Negative); Urine Nitrite Negative (Negative); Urine Occult Blood Negative (Negative); Urine Specific Gravity 1.005 (<1.030); Urine Urobilinogen Negative (Neg - 1+)
[2024-10-23 11:14] LABS: Urine Bacteria Few (Negative); Urine Squamous Cell 26-30 /LPF (Few); Urine White Cell 0-2 /HPF (0-5)
[2024-10-23 13:00] VITALS: BP 114/86
[2024-10-23 14:02] VITALS: BP 92/24
== END 2024-10-23 15:03 ==
LOC: EMR 08:48
PROVIDERS: Physician Assistant Medical; EMERGENCY PHYSICIAN Emergency Medicine; FAMILY PHYSICIAN Hospitalist
DX: R60.0 Localized edema (principal); R10.9 Unspecified abdominal pain; R33.9 Retention of urine, unspecified; R45.1 Restlessness and agitation; D64.9 Anemia, unspecified; I13.0 Hypertensive heart and chronic kidney disease with heart failure and stage 1 through stage 4 chronic kidney disease, or unspecified chronic kidney disease; N18.9 Chronic kidney disease, unspecified; I50.9 Heart failure, unspecified; I48.91 Unspecified atrial fibrillation; E11.22 Type 2 diabetes mellitus with diabetic chronic kidney disease; E78.00 Pure hypercholesterolemia, unspecified; E03.9 Hypothyroidism, unspecified; G89.29 Other chronic pain; M54.9 Dorsalgia, unspecified; K57.92 Diverticulitis of intestine, part unspecified, without perforation or abscess without bleeding; I25.2 Old myocardial infarction; Z79.4 Long term (current) use of insulin; Z98.1 Arthrodesis status; Z87.891 Personal history of nicotine dependence; Z88.8 Allergy status to other drugs, medicaments and biological substances
CPT/HCPCS: 99283; 51701; 51798; 80053; 81003; 81015; 83690; 83880; 84484; 85025; 86850; 86900; 86901

== ENCOUNTER 2024-10-24 03:54 | Emergency (ER) | payer MEDICARE, SELFPAY ==
[2024-10-24 03:59] VITALS: BP 108/55
[2024-10-24 04:00] VITALS: BP 108/55
--- NOTE | 2024-10-24 04:34 | ED.GENMED ---
History of Present Illness
General
Chief Complaint: Back Pain
Source: patient, ambulance crew, [facility] and previous hospital records (Recent hospitalization October 13 to October 21.)
Exam Limitations: dementia
Time Seen by Provider: 10/24/24 04:34
Nursing documentation reviewed up to this point in time: agreed with
History of Present Illness
History of Present Illness:
This is a 74-year-old gentleman with multiple chronic medical issues including hypertension, A-fib, cognitive deficit, BPH, hypothyroidism, sacral decubitus, recent hospitalization October 13 to October 21 for treatment of heart failure
exacerbation received IV diuresis. He was also evaluated by psychiatry due to concern for medical decision capacity. Echocardiogram showed EF of 55 to 60%. During hospitalization he had some mild overdiuresis and diuretics were temporarily held
with recommendation to resume his usual diuretic regimen. [facility] was [facility] to [facility] facility on October [facility].
He was sent from [facility]-way to this ED yesterday due to [facility]-way staff concerned for patient with intermittent complaints of generalized abdominal discomfort, lower extremity edema, pain to his bilateral lower extremities and generally not
feeling well. All the symptoms appear to be chronic in nature.
Laboratory studies performed yesterday were overall improved from previous October 21.
There was no evidence of acute medical condition, there has been no vomiting nor diarrhea. He has not had a fever.
He was discharged back to [facility]-way.
He is sent from [facility]-way again today, sent by transport ambulance due to complaints of pain in his coccyx area. Patient has known stage II sacral decubitus which was evaluated during recent hospitalization and recommended Santyl dressing.
Again there has been no report of fever, no vomiting. No recent falls.
Patient sleeping upon arrival, awakens easily. He does note some chronic sacral pain but otherwise offers no other complaints.
Past History
Past History
ED Past Medical History: Arrthythmia (Atrial fib), CHF, HTN, Hypercholesterolemia, IDDM, [place] (X 2), Hypothyroidism and Other (Chronic back pain, Sacral decub, Diverticulitis, Compression fracture, )
ED Past Surgical History: Orthopedic (Spinal fusion, )
Social History
Tobacco: Former smoker
Alcohol: None
Drug: None
Personal:
Living: [facility]
Phy Exam
Physical Exam
Physical Exam:
GENERAL: This is a 74-year-old gentleman who appears chronically debilitated, somewhat bedbound, older than stated age. Sleeps when undisturbed but easily arousable. Once awake, exhibits mildly mumbling speech but answers yes/no questions
appropriately. Overall in no acute distress.
EYE: pupils equal and reactive. anicteric
NECK: Supple, nontender, no meningismus, no significant adenopathy.
ENT: oral mucosa is moist. No rhinorrhea.
CARDIAC: Regular rate and rhythm. no murmur.
LUNGS: Clear breath sounds bilaterally, no acute respiratory distress, no wheezes/rales/rhonchi
ABDOMEN: Soft, nondistended, without focal tenderness, no r/g, no cvat. normoactive BS.
BACK: There is a stage II sacral decubitus approximately 3.5 cm in diameter, yellowish granulation tissue base. There is no surrounding erythema nor soft tissue swelling. No necrosis.
NEUROLOGICAL: Awake, minimally drowsy, oriented x 2, no focal neuro deficits.
SKIN: Warm and dry, normal color, fair turgor
MUSCULOSKELETAL: No clubbing or cyanosis. Trace pitting edema bilateral lower extremities. Scattered superficial areas of skin breakdown to the lower extremities, no drainage nor erythema.
PSYCH: Moderately blunted affect. Cooperative.
Course
Orders/Labs/Results
Orders:
Orders
10/24/24 04:16
Wound Culture [Wound/Abscess/Other Culture] Urgent
STEVEN Source: Coccyx
Specimen Description:
Date Specimen was Collected: 10/24/24
Time Specimen was Collected: 04:14
10/24/24 05:01
Acetaminophen [Tylenol] 650 mg PO NOW STA
Vital Signs
Initial and Last Documented VS:
Initial Vital Signs
Temp Pulse Resp BP Pulse Ox
97.8 F 76 18 108/55 97
10/24/24 03:59 10/24/24 03:59 10/24/24 03:59 10/24/24 03:59 10/24/24 03:59
Last Documented Vital Signs
Temp Pulse Resp BP Pulse Ox
97.8 F 76 18 108/55 97
10/24/24 04:12 10/24/24 03:59 10/24/24 03:59 10/24/24 04:00 10/24/24 03:59
MDM/Problems Addressed
Differential Diagnosis Includes:
74-year-old gentleman with multiple chronic medical conditions. Significantly chronically debilitated.
Complains of sacral pain and on exam noted to have stage II sacral decubitus with some granulation tissue at the base. There is no skin erythema, no soft tissue swelling, no evidence of cellulitis.
He is afebrile, vital signs within normal limits.
Although chronically ill in appearance, appears stable and unchanged upon review of records from recent hospitalization and upon review of ED visit yesterday.
Extensive laboratory studies performed yesterday overall improved from recent hospitalization.
At this point no indication to repeat labs, would recommend continuing Santyl powder and local dressing, encourage to offload sacral area and continue with physical therapy and regular medications at the half-way.
Will discharge back to [facility]-way for continued care.
Chronic conditions affecting care: HTN, Cardiomyopathy, Neurological disorder and Psychiatric illness
*Pulse Oximetry
Patient hypoxic: no
*Critical Care Note
Total Time (30-74mins, 75-104mins- exclusive of procedures): Not Applicable
ED Attending Note
-
Portions of this chart may have been created with voice recognition software.� Occasional wrong word or��sound alike� substitutions may have occurred due to the inherent limitations of voice recognition software.
Discharge Plan
Departure
Patient Disposition: Group Home/SNF
Date of Disposition: 10/24/24
Time of Disposition: 04:34
Patient with high blood pressure during this ER visit?: No
Discharge Problem:
Decubitus ulcer of sacral region, stage 2, Unspecified dementia, unspecified severity, with other behavioral disturbance
Instructions: Pressure sores
Prescriptions:
No Action
acetaminophen 325 mg Tablet
650 mg PO Q4HPRN MDD 3000 mg PRN (Reason: mild pain/temp >101)
nystatin 100,000 unit/gram Ointment
1 applic TOPICAL BID
thiamine HCl (vitamin B1) 100 mg Tablet
100 mg PO DAILY
tamsulosin 0.4 mg Capsule
0.4 mg PO DAILY
ferrous sulfate 325 mg (65 mg iron) Tablet
325 mg PO DAILY
lidocaine 5 % Adhesive Patch,Medicated
1 patch TOPICAL DAILY
Fleet Enema 19-7 gram/118 mL Enema
118 ml [place] DAILYPRN PRN (Reason: if no bm 24 hrs aftr bisacodyl)
insulin aspart U-100 100 unit/mL Cartridge
2 - 12 sliding scale dose SC AC
Rx Instructions:
141-180=2u; 181-220=4u; 221-260=6u; 261-300=8u; 301-340=10u; 341+=12u
rosuvastatin 10 mg Tablet
10 mg PO HS
cholecalciferol (vitamin D3) [Vitamin D3] 125 mcg (5,000 unit) Tablet
125 mcg PO DAILY
polyethylene glycol 3350 [HealthyLax] 17 gram Powder In Packet
17 g PO BID Qty: 30 0RF
sennosides-docusate sodium 8.6-50 mg Tablet
1 tab PO BID Qty: 60 0RF
pantoprazole 40 mg Tablet,Delayed Release (Dr/Ec)
40 mg PO BID Qty: 60 0RF
furosemide 40 mg Tablet
40 mg PO BID
magnesium hydroxide [Milk of Magnesia] 400 mg/5 mL Suspension
30 ml PO DAILYPRN PRN (Reason: if no bm after 3 days)
bisacodyl [Dulcolax (bisacodyl)] 10 mg Suppository
10 mg CA DAILYPRN PRN (Reason: if no bm in 24hrs after MOM)
Santyl 250 unit/gram Ointment
1 applic TOPICAL PRN PRN (Reason: soilage cleanse)
Rx Instructions:
apply to sacrum
Santyl 250 unit/gram Ointment
1 applic TOPICAL DAILY
Rx Instructions:
apply to sacrum
levothyroxine 112 mcg tablet
112 mcg PO DAILY@0600
fentanyl 25 mcg/hr Patch 72 Hour
1 patch transdermal Q72H Qty: 1 0RF
carvedilol 3.125 mg Tablet
3.125 mg PO BID 30 Days Qty: 60 0RF
furosemide [Lasix] 40 mg Tablet
40 mg BID
Referrals:
Kelsey Mills, [Family Provider] - Follow up in 2-3 days
Interventions
Interventions:
*Risk Screen - Suicide Last Done: 10/24/24 03:59
*General Assessment Last Done: 10/24/24 04:30
*Neglect/Abuse Screening Last Done: 10/24/24 03:59
ED- Fall Risk Assessment Last Done: 10/24/24 04:30
*ED COVID-19 Vaccine History Last Done: 10/24/24 04:30
*Nursing Disposition Last Done: 10/24/24 05:30
ED-Musculoskeletal Assessment Last Done: 10/24/24 04:43
Discharge Date and Time
Discharge Date/Time: 10/24/24 05:30
Print Language: MONGOLIAN
[2024-10-24] MEDS: TYLENOL 650 MG PO (05:04)
== END 2024-10-24 05:30 ==
LOC: EMR 03:54
PROVIDERS: EMERGENCY PHYSICIAN Emergency Medicine; FAMILY PHYSICIAN Hospitalist
DX: L89.152 Pressure ulcer of sacral region, stage 2 (principal); F03.918 Unspecified dementia, unspecified severity, with other behavioral disturbance; E03.9 Hypothyroidism, unspecified; E11.9 Type 2 diabetes mellitus without complications; E78.00 Pure hypercholesterolemia, unspecified; I11.0 Hypertensive heart disease with heart failure; I50.9 Heart failure, unspecified; I25.2 Old myocardial infarction; G89.29 Other chronic pain; I48.91 Unspecified atrial fibrillation; Z79.4 Long term (current) use of insulin; Z87.891 Personal history of nicotine dependence; N40.0 Benign prostatic hyperplasia without lower urinary tract symptoms; Z98.1 Arthrodesis status
CPT/HCPCS: 99283; 87070; 87077; 87205

== ENCOUNTER 2024-11-01 23:12 | Emergency (ER) | payer MEDICARE, SELFPAY ==
[2024-11-01 23:14] VITALS: BP 134/68
[2024-11-02 00:32] VITALS: BP 95/77
[2024-11-02 00:34] VITALS: BMI 34.8
[2024-11-02 01:00] VITALS: BP 97/54
[2024-11-02 01:04] LABS: % Basophils 0.2 % (0-2); % Eosinophils 4.5 % (0-6); % Immature Granulocytes 0.3 % (0-0.5); % Lymphocytes 22.6 % (20.5-51.1); % Monocytes 9.6 % (1.7-9.3); % Neutrophils 62.8 % (42.2-75.2); Absolute Eosinophils 0.3 10^3/uL (0-0.7); Absolute Lymphocytes 1.4 10^3/uL (1.2-3.4); Absolute Monocytes 0.6 10^3/uL (0.1-0.6); Absolute Neutrophils 3.9 10^3/uL (1.4-6.5); Hematocrit 23.5 % (39.0-52.0); Hemoglobin 7.7 g/dL (13.0-18.0); Mean Corp Hgb Conc. 32.8 g/dL (33.0-37.0); Mean Corpuscular Hgb 29.6 pg (27.0-31.0); Mean Corpuscular Volume 90.4 fL (80.0-94.0); Mean Platelet Volume 9.5 fL (7.4-10.4); Nucleated Red Blood Cells % 0 % (-); Platelet Count 146 10^3/uL (130-400); Red Cell Dist. Width 15.3 % (11.5-14.5); White Blood Cell Count 6.2 10^3/uL (4.8-10.8)
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
[2024-11-02 01:23] LABS: ALT (SGPT) 29 U/L (0-50); AST (SGOT) 32 U/L (17-59); Albumin 3.3 g/dl (3.5-5.0); Alkaline Phosphatase 153 U/L (38-126); Blood Urea Nitrogen 54 mg/dl (9-20); Calcium 8.4 mg/dl (8.4-10.2); Carbon Dioxide 23 mmol/L (22-30); Chloride 102 mmol/L (98-107); Estimated Creatinine Clearance 48 ml/min; Glucose 311 mg/dl (70-99); Potassium 3.9 mmol/L (3.5-5.1); Sodium 137 mmol/L (135-145); Total Bilirubin 0.3 mg/dl (0.2-1.3); Total Protein 6.9 g/dl (6.3-8.2); eGFR 42.04
[2024-11-02 02:11] VITALS: BP 127/52
[2024-11-02 03:56] VITALS: BP 130/68
== END 2024-11-02 04:05 ==
LOC: EMR 23:12
PROVIDERS: Student in an Organized Health Care Education/Training Program; EMERGENCY PHYSICIAN Emergency Medicine; FAMILY PHYSICIAN Hospitalist
DX: M79.89 Other specified soft tissue disorders (principal); R53.1 Weakness; M79.18 Myalgia, other site; L89.159 Pressure ulcer of sacral region, unspecified stage; I13.0 Hypertensive heart and chronic kidney disease with heart failure and stage 1 through stage 4 chronic kidney disease, or unspecified chronic kidney disease; I50.9 Heart failure, unspecified; N18.9 Chronic kidney disease, unspecified; E11.22 Type 2 diabetes mellitus with diabetic chronic kidney disease; E03.9 Hypothyroidism, unspecified; E78.00 Pure hypercholesterolemia, unspecified; G89.29 Other chronic pain; K21.9 Gastro-esophageal reflux disease without esophagitis; M54.9 Dorsalgia, unspecified; I48.91 Unspecified atrial fibrillation; K57.92 Diverticulitis of intestine, part unspecified, without perforation or abscess without bleeding; I25.2 Old myocardial infarction; Z98.1 Arthrodesis status; Z87.891 Personal history of nicotine dependence; Z79.4 Long term (current) use of insulin; Z88.8 Allergy status to other drugs, medicaments and biological substances
CPT/HCPCS: 99283; 80053; 85025